=== PATIENT | male | born 1960 | race Caucasian/White ===

== ENCOUNTER → 2016-10-28 | Outpatient (CLI) | payer OTHER ==
[2016-06-23 11:10] VITALS: BP 123/81
[~2016-10-28] MED LIST: ALBU1.25 NEB; ALBU4TAB3 PO; ASPI81TA2 PO; ATOR10TA60 PO; CHOL10003 PO; CYAN10005 PO; DIAZEPAM10 MG PO; DOCU100C5 PO; DOXY100T PO; FENT1PAT21 TP; GADOBUTROL 7.5 MMOL/7.5 ML VIAL IV ONE; GARL1CAP3 PO; HYDR32TA PO; HYDR8TAB PO; MAGN400C PO; MORP100C15 PO; MORP15TA PO; MORP30TA PO; MULT1TAB52 PO; ONDA8TAB9 PO; OXYC-250 PO; OXYC10TA32 PO; OXYC30TA PO; POLY17PO5 PO; POTA10CA PO; POTA20TA12 PO; PROAIR HFA8.5 GM IH; PROC10TA57 PO; SILO8CAP PO; SPIR50TA2 PO; TAMS0.4C2 PO; TEST200V3 IM; TIZA2CAP PO; TRAZ150T55 PO; TRAZ5POW
--- NOTE | 2016-10-28 12:48 | RAD ---
PROCEDURE MRI brain without and with contrast. HISTORY Metastatic evaluation, history of lung cancer TECHNIQUE Multiplanar, multi sequential pre and post contrast MR imaging was performed of the brain. Contrast: 9 cc Gadavist COMPARISON April 02, 2016 FINDINGS There is no new abnormal intracranial enhancement. Ventricular size is stable. There is no new midline shift, intra-axial mass effect, extra-axial fluid collection. There is again moderate to severe T2 and FLAIR hyperintense signal abnormality of the supratentorial white matter bilaterally greatest of the parietal temporal lobes, overall fairly similar. There is preservation of the major arterial intracranial flow voids at the skull base. There is again some patchy fluid of the right mastoid air cells. There is patchy minimal ethmoid air cell mucosal thickening. There has been lens surgery bilaterally. There is preservation of marrow signal of the clivus. IMPRESSION 1. There is no new abnormal intracranial enhancement. There is similar T2 and FLAIR hyperintense signal abnormality of the supratentorial white matter, probably due to post therapeutic change in combination with chronic microvascular ischemic disease. Electronically signed by: Alistair Haddad MD (Oct 28, 2016 12:47:24)
--- NOTE | 2016-10-28 13:22 | RAD ---
Exam performed: Nuclear medicine whole-body bone scan. Indication: Lung cancer staging Date of Service: 10/28/16 Comparison:CT scan Chest, abdomen and pelvis from 10/15/16 Discussion: Following the intravenous administration of 25.0 mCi of MDP labeled with Technetium, delayed whole-body gamma camera images of the axial and appendicular skeleton were obtained. There is symmetric excretion of radiotracer via both kidneys with accumulation in the urinary bladder. There is normal distribution of the radionuclide without abnormal areas of increased or decreased accumulation. Impression: Normal whole-body nuclear bone scan.
== END | disposition home or self-care (01) ==
LOC: NM 07:52
PROVIDERS: ATTEND Internal Medicine Hematology & Oncology
DX: C34.10 Malignant neoplasm of upper lobe, unspecified bronchus or lung (principal); J45.909 Unspecified asthma, uncomplicated; J44.9 Chronic obstructive pulmonary disease, unspecified; I10 Essential (primary) hypertension; Z87.891 Personal history of nicotine dependence; Z85.118 Personal history of other malignant neoplasm of bronchus and lung
CPT/HCPCS: 70553; 78306; 96374; A9503; A9585

== ENCOUNTER → 2017-01-06 | Outpatient (CLI) | payer OTHER ==
[2016-06-23 11:10] VITALS: BP 123/81
[~2017-01-06] MED LIST changes: -GADOBUTROL 7.5 MMOL/7.5 ML VIAL IV ONE; +IOHEXOL 240 MG/ML 50ML VIAL. PO ONE; +IOHEXOL 300 MG/ML 75 ML VIAL IV ONE; +POLY17PO29 PO; -POLY17PO5 PO; -POTA10CA PO; +POTASSIUM CHLO10 MEQ PO
--- NOTE | 2017-01-06 10:46 | RAD ---
Indication: Restaging lung carcinoma. Axial imaging through the chest, abdomen and pelvis was performed after the administration of intravenous contrast. Correlation is made with prior CT from 10/15/2016. CT chest: No axillary lymphadenopathy is detected. Calcified lymph nodes in the left hilum are again noted. The right hilum is unremarkable. There continues to be soft tissue in the AP window, similar in appearance to the prior exam. Calcified lymph nodes subcarinal location are again noted. Previously noted nodular thickening along the left mediastinum at the level of the main pulmonary artery is again noted and appears very similar to prior exam. Overall thickness is similar measuring up to 10 mm. No new abnormality is detected. Parenchymal evaluation again shows diffuse emphysematous changes. Previously noted slightly irregular nodular density in the medial aspect of the superior segment of the left lower lobe appears less prominent on today's exam measuring approximately 7 mm x 5 mm compared with 8 mm x 5 mm on prior. There does appear to be some mild infiltrate or interstitial changes in the lingula medially which is new since prior. The lower lobes appear clear. Impression: Decrease in size of the nodular density in the superior segment left lower lobe when compared with prior exam from October 20, 2016. The mediastinal thickening and AP window soft tissue appears stable. There is some mild developing infiltrate in the lingula. CT abdomen and pelvis: Small low density in the right lobe of the liver near the dome appears stable and likely a cyst. No new liver mass is detected. The gallbladder is unremarkable. The pancreas and spleen are unremarkable. No adrenal mass is detected. Left kidney contains a cyst in the lower pole. Aorta is calcified but nonaneurysmal. There is a large amount of stool throughout the colon consistent with constipation. Small bowel is nondilated. The bladder and prostate are unremarkable. The bony structures appear nonacute. Impression: Stable CT of the abdomen and pelvis when compared with prior study from 10/15/2016. No definite evidence of abdominal or pelvic metastatic disease or lymphadenopathy is seen. There is moderate stool within the colon consistent with constipation. PQRS Compliance Statement: One or more of the following individualized dose reduction techniques were utilized for this examination: 1. Automated exposure control 2. Adjustment of the mA and/or kV according to patient size 3. Use of iterative reconstruction technique
== END | disposition home or self-care (01) ==
LOC: CT 08:28
PROVIDERS: ATTEND Internal Medicine Hematology & Oncology
DX: C34.10 Malignant neoplasm of upper lobe, unspecified bronchus or lung (principal)
CPT/HCPCS: 71260; 74177

== ENCOUNTER → 2017-03-09 | Outpatient (CLI) | payer OTHER ==
[2017-01-28 14:11] VITALS: BP 111/62
[~2017-03-09] MED LIST changes: +ASPI-630 PO; -ASPI81TA2 PO; +CONTRAST GIVEN MC PRN; +DOCU100C28 PO; -DOCU100C5 PO; -OXYC-250 PO; +OXYC-328 PO; -OXYC10TA32 PO; +OXYC10TA45 PO; +TRAZ150T49 PO; -TRAZ150T55 PO
--- NOTE | 2017-03-09 11:11 | RAD ---
CT chest, abdomen and pelvis with intravenous contrast 03/09/2017 at 10:11 AM. Indication: History of lung cancer. Comparison: CT chest, abdomen and pelvis 01/06/2017, 03/27/2016 CT chest Technique: Multiple axial CT images of the chest, abdomen and pelvis were acquired after the administration of intravenous and oral contrast. 75 cc Omni 300 was administered intravenously. Coronal and sagittal reformats are provided. Findings: There is a subcentimeter nodule in the left thyroid lobe. There is ill-defined soft tissue attenuation within the left prevascular space. Calcified mediastinal lymph nodes are identified in the subcarinal and left hilar regions. Heart size is within normal limits. There is no pericardial effusion. There is no pleural effusion. Thoracic aorta is normal in course and caliber. Pulmonary arteries appear normal. There is a 3 mm calcified granuloma in the right upper lung. There is pleural-parenchymal scarring at the lung apices, right greater than left. There is mild centrilobular emphysema in the upper lung zones. There is a 6 mm calcified granuloma in the left lower lobe. Stable appearance of a 7 x 5 mm noncalcified pulmonary nodule in the medial aspect of the superior segment left lower lobe. There is a 5 mm calcified granuloma in the left lower lobe. Findings are stable when compared to the prior examination from 03/27/2016. There is no pneumothorax. Interval resolution of lingular airspace disease. There is a 6 mm simple cyst in the right hepatic dome. No suspicious hepatic lesions are identified. Calcifications are noted within the spleen compatible with prior granulomatous disease. Gallbladder is normal in appearance. Adrenal glands appear normal. The abdominal aorta is normal in course and caliber with minimal atherosclerotic calcification. There are no pathologically enlarged abdominal or pelvic lymph nodes. There is no free intraperitoneal air. No free fluid is identified within the abdomen or pelvis. The kidneys enhance symmetrically. There is a 3 cm simple appearing cyst within the inferior pole the left kidney. There is no hydronephrosis. There are no dilated loops of small or large bowel. Moderate amount stool is noted throughout the colon. Urinary bladder is normal in appearance. Prostate is present. Seminal vesicles are normal. Mild degenerative changes of the lumbar spine are identified with disc space narrowing and anterior marginal osteophytosis at L1-L2. No suspicious osseous lesions are identified. Impression: 1. Stable appearance of a 7 x 5 mm noncalcified pulmonary nodule in the medial aspect of the super segment left lower lobe. This finding is stable dating back to 03/27/2016. This finding is stable from the prior examination from 05/17/2015. 2. No evidence for metastasis involving the chest, abdomen or pelvis.
== END | disposition home or self-care (01) ==
LOC: CT 08:28
PROVIDERS: ATTEND Internal Medicine Hematology & Oncology
DX: C34.10 Malignant neoplasm of upper lobe, unspecified bronchus or lung (principal)
CPT/HCPCS: 71260; 74177; Q9966; Q9967

== ENCOUNTER 2017-04-02 06:53 | Outpatient (CLI) | payer OTHER ==
[~2017-04-02] VITALS: Ht 180.3 cm; Wt 65.8 kg
[~2017-04-02 06:53] MED LIST changes: -CONTRAST GIVEN MC PRN; -IOHEXOL 240 MG/ML 50ML VIAL. PO ONE; -IOHEXOL 300 MG/ML 75 ML VIAL IV ONE
[2017-04-02 07:35] VITALS: BP 79/52
[2017-04-02 07:36] LABS: BASO % 0 % (0-3); EOS % 1 % (0-3); HEMATOCRIT 21.1 % (39.0-53.0); LYMPH # 1.2 x10^3/uL (1.0-4.8); LYMPH % 8 % (24-48); MEAN CORPUSCULAR HEMOGLOBIN 31 pg (25-35); MEAN CORPUSCULAR HGB CONC 32 g/dL (31-37); MEAN CORPUSCULAR VOLUME 98 fL (79-100); MONO % 9 % (0-9); NEUT % 82 % (31-73); PLATELET COUNT 56 x10^3/uL (140-400); RED BLOOD COUNT 2.16 x10^6/uL (4.30-5.70); RED CELL DISTRIBUTION WIDTH 23.8 % (11.5-14.5); WHITE BLOOD COUNT 14.9 x10^3/uL (4.0-11.0)
[2017-04-02 07:39] VITALS: BP 79/52
[2017-04-02 07:53] LABS: HEMOGLOBIN 6.8 g/dL (13.0-17.5)
[2017-04-02 08:00] VITALS: BP 85/58
[2017-04-02 08:00] LABS: INR 1.1 (0.8-1.1); PROTHROMBIN TIME PATIENT 13.6 SEC (11.7-14.0)
[2017-04-02 12:13] LABS: ANISOCYTOSIS MOD; PLT ESTIMATE DECREASED (ADEQUATE); POLYCHROMASIA SLIGHT; SCHISTOCYTES OCC
[2017-04-02 16:02] VITALS: BP 94/67
--- NOTE | 2017-04-09 10:23 | RAD ---
Procedure: Ultrasound and fluoroscopically guided placement of right internal jugular power port.. 04/09/2017 9:57 AM Clinical Indication: CHEMOTHERAPY Sedation: Conscious sedation was administered for 30 minutes. The patient was monitored by a qualified independent observer throughout the time of sedation. Please refer to the medical record for exact doses of medications utilized to achieve moderate sedation. Fluoroscopy time: 0.6 minutes Dose area product: 0.2 Gycm2 Consent: The procedure was explained in its entirety to the patient or the patients designated pest control service representative by a member of the treatment team, including a discussion of the risks, benefits and commonly accepted alternatives to the procedure, as well as the expected consequences of no therapy whatsoever. Discussion of the risks included, but was not limited to, those that are most frequent and those that are rare but possibly severe or life-threatening, as well as the possibility of unforeseen complications. Technique and Findings: All elements of maximal sterile barrier technique including the use of a cap, mask, sterile gown, sterile gloves, large sterile sheet, appropriate hand hygiene, and 2% chlorhexidine for cutaneous antisepsis (or acceptable alternative antiseptic per current guidelines) were followed for this procedure. Following informed consent, and a timeout procedure, the patient was prepped and draped in the usual sterile fashion. Ultrasound interrogation of the right neck revealed patency and compressibility of the right internal jugular vein. A 21-gauge micropuncture was then used to gain access to this vein under ultrasound guidance. A hard copy ultrasound image was recorded. The needle was exchanged over a wire for a sheath. A 1 inch incision was made several centimeters inferior to the sternotomy site. A catheter was tunneled from this site dermatotomy site in the neck. Catheter was advanced through peel-away sheath such that its tip was in the proximal right atrium with the patient supine. The catheter was trimmed to length and connected to the port reservoir. The port was found to flush and aspirate normally. The wound was closed in layers using 4-0 Vicryl suture. Sterile dressings were applied. Impression: Successful ultrasound and fluoroscopically guided placement of a right internal jugular PowerPort
== END 2017-04-02 10:15 | disposition home or self-care (01) ==
LOC: INTRAD 06:53
PROVIDERS: ATTEND Internal Medicine Hematology & Oncology
DX: C34.90 Malignant neoplasm of unspecified part of unspecified bronchus or lung (principal); J44.9 Chronic obstructive pulmonary disease, unspecified; E78.00 Pure hypercholesterolemia, unspecified; K21.9 Gastro-esophageal reflux disease without esophagitis; M19.90 Unspecified osteoarthritis, unspecified site; D64.9 Anemia, unspecified; Z86.73 Personal history of transient ischemic attack (TIA), and cerebral infarction without residual deficits; Z87.39 Personal history of other diseases of the musculoskeletal system and connective tissue; Z86.69 Personal history of other diseases of the nervous system and sense organs; Z72.0 Tobacco use; Z87.01 Personal history of pneumonia (recurrent)
CPT/HCPCS: 36415; 36561; 85007; 85027; 85610; 99152; 99153; C1887

== ENCOUNTER → 2017-04-09 | Outpatient (CLI) | payer OTHER ==
[~2017-04-09] VITALS: Ht 182.9 cm; Wt 65.8 kg
[~2017-04-09] MED LIST changes: +HEPARIN PF 500 UNIT/5 ML DISP.SYRIN. IV ONE; +LIDOCAINE 1%/EPI 1:100,000 20 ML VIAL. IJ ONE; +LIDOCAINE 1%/EPI 1:200,000 30 ML VIAL. ONE; +MIDAZOLAM HCL/PF 5 MG/5 ML VIAL. IV ONE; +MIDAZOLAM HCL/PF 5 MG/5 ML VIAL. ONE; +VANCOMYCIN 1GM IVPB FOR OMNI 0 ML ONE; +fentaNYL PF VIAL 250 MCG/5 ML VIAL IV ONE; +fentaNYL PF VIAL 250 MCG/5 ML VIAL ONE
[2017-04-09 07:47] VITALS: BP 100/59
[2017-04-09 07:50] LABS: BASO # 0.1 x10^3/uL (0.0-0.2); BASO % 1 % (0-3); EOS % 1 % (0-3); HEMATOCRIT 26.5 % (39.0-53.0); HEMOGLOBIN 8.7 g/dL (13.0-17.5); LYMPH # 0.8 x10^3/uL (1.0-4.8); LYMPH % 9 % (24-48); MEAN CORPUSCULAR HEMOGLOBIN 31 pg (25-35); MEAN CORPUSCULAR HGB CONC 33 g/dL (31-37); MEAN CORPUSCULAR VOLUME 95 fL (79-100); MONO % 10 % (0-9); NEUT % 79 % (31-73); PLATELET COUNT 374 x10^3/uL (140-400); RED CELL DISTRIBUTION WIDTH 21.1 % (11.5-14.5); WHITE BLOOD COUNT 8.8 x10^3/uL (4.0-11.0)
[2017-04-09 09:20] VITALS: BP 109/61
[2017-04-09 09:30] LABS: ANISOCYTOSIS MOD; PLT ESTIMATE ADEQUATE (ADEQUATE)
[2017-04-09 09:32] LABS: BURR CELLS OCC; HYPOCHROMIA SLIGHT
[2017-04-09 09:33] VITALS: BP 135/71
[2017-04-09 09:48] VITALS: BP 112/68
[2017-04-09 10:03] VITALS: BP 122/70
[2017-04-09 10:15] VITALS: BP 117/69
== END | disposition home or self-care (01) ==
LOC: INTRAD 06:52
PROVIDERS: ATTEND Internal Medicine Hematology & Oncology
DX: C34.90 Malignant neoplasm of unspecified part of unspecified bronchus or lung (principal); E78.00 Pure hypercholesterolemia, unspecified; J44.9 Chronic obstructive pulmonary disease, unspecified; K21.9 Gastro-esophageal reflux disease without esophagitis; M19.042 Primary osteoarthritis, left hand; M19.041 Primary osteoarthritis, right hand; F17.200 Nicotine dependence, unspecified, uncomplicated; Z72.0 Tobacco use; Z86.69 Personal history of other diseases of the nervous system and sense organs; Z86.73 Personal history of transient ischemic attack (TIA), and cerebral infarction without residual deficits; Z87.01 Personal history of pneumonia (recurrent); Z87.39 Personal history of other diseases of the musculoskeletal system and connective tissue
CPT/HCPCS: 36415; 36561; 76937; 77001; 85007; 85027; A4215; C1751; C1892; J0690; J1644; J2250; J3010; J3490; 99152; 99153

== ENCOUNTER → 2017-05-26 | Outpatient (CLI) | payer OTHER ==
[2017-05-19 10:03] VITALS: BP 99/58
[~2017-05-26] MED LIST changes: +CONTRAST GIVEN MC PRN; -HEPARIN PF 500 UNIT/5 ML DISP.SYRIN. IV ONE; +IOHEXOL 240 MG/ML 50ML VIAL. PO ONE; +IOHEXOL 300 MG/ML 75 ML VIAL IV ONE; -LIDOCAINE 1%/EPI 1:100,000 20 ML VIAL. IJ ONE; -LIDOCAINE 1%/EPI 1:200,000 30 ML VIAL. ONE; -MIDAZOLAM HCL/PF 5 MG/5 ML VIAL. IV ONE; -MIDAZOLAM HCL/PF 5 MG/5 ML VIAL. ONE; -VANCOMYCIN 1GM IVPB FOR OMNI 0 ML ONE; -fentaNYL PF VIAL 250 MCG/5 ML VIAL IV ONE; -fentaNYL PF VIAL 250 MCG/5 ML VIAL ONE
--- NOTE | 2017-05-26 13:30 | RAD ---
EXAM: Chest, abdomen and pelvis CT with intravenous contrast. HISTORY: Lung cancer restaging. TECHNIQUE: Computed tomographic images of the chest, abdomen and pelvis were obtained following the administration of 75 cc Omnipaque 300 intravenous contrast. Multiplanar reformatting was performed. COMPARISON: 03/09/2017 and 12/21/2014. FINDINGS: Chest: There is stable left superior paramediastinal bronchial wall thickening likely due to scarring. There is biapical pleural-parenchymal scarring. There is emphysema. There is a 9 mm nodular opacity within the superior medial superior segment of the left lower lobe, similar in size compared to the prior study when allowing for differences in slice position and volume averaging. There are a few calcified granulomas. There is no effusion or pneumothorax. The heart is normal in size. There is stable increased soft tissue density within the aortopulmonary window. There is stable right paratracheal, precarinal and subcarinal lymph nodes. There are multiple calcified left hilar and subcarinal lymph nodes. There is a right chest wall port catheter. There are degenerative changes within the spine. No suspicious osseous lesion is seen. Abdomen and pelvis: There is a stable 1 cm cyst within the right hepatic lobe. There is fatty infiltration of the liver along the falciform ligament. The gallbladder is unremarkable. There is dilatation of the common bile duct, without a clear lesion at the level of the ampulla. There are few pancreatic calcifications, possibly due to the sequela of chronic pancreatitis. There are granular mild within the spleen. The adrenal glands are unremarkable. There is a stable 3.0 cm simple left renal cyst. There is moderate colonic stool. There is mucosal thickening involving the descending colon, with slight surrounding pericolonic stranding. No pathologically enlarged mesenteric or retroperitoneal lymph node is seen. There are degenerative changes throughout the spine. No suspicious osseous lesion is seen. IMPRESSION: 1. Stable post operative or post radiation changes involving the left upper lobe. 2. 9 mm nodular opacity within the superior left lower lobe. The greater than two-year course of stability of this finding favors benignity. 3. Emphysema. 4. Stable small hepatic cyst and left renal cyst. 5. Stable punctate pancreatic parenchymal calcifications, suggesting the sequela of chronic pancreatitis. PQRS Compliance Statement: One or more of the following individualized dose reduction techniques were utilized for this examination: 1. Automated exposure control 2. Adjustment of the mA and/or kV according to patient size 3. Use of iterative reconstruction technique
== END | disposition home or self-care (01) ==
LOC: CT 09:28
PROVIDERS: ATTEND Internal Medicine Hematology & Oncology
DX: C34.10 Malignant neoplasm of upper lobe, unspecified bronchus or lung (principal); J43.9 Emphysema, unspecified; K76.89 Other specified diseases of liver; N28.1 Cyst of kidney, acquired
CPT/HCPCS: 71260; 74177; Q9966; Q9967

== ENCOUNTER → 2017-08-05 | Outpatient (CLI) | payer OTHER ==
[2017-05-19 10:03] VITALS: BP 99/58
[~2017-08-05] MED LIST changes: -CONTRAST GIVEN MC PRN; +HEPARIN PF 500 UNIT/5 ML DISP.SYRIN. IV ONE; +IOHEXOL 300 MG/ML 100ML VIAL. IV ONE; -IOHEXOL 300 MG/ML 75 ML VIAL IV ONE
--- NOTE | 2017-08-05 09:50 | RAD ---
CT of the chest, abdomen, and pelvis with contrast 08/05/2017 Indication: Follow-up, history of cancer. Comparison study: [CT of the chest, abdomen, and pelvis May 26, 2016.] Technique: Multidetector CT imaging of the chest was performed following the administration of intravenous contrast Findings: Right internal jugular port noted. Heart size is normal. No pericardial effusion is identified. Coronary calcification noted. Calcified left hilar adenopathy and subcarinal adenopathy noted. Emphysematous changes are noted throughout the lungs. Bilateral apical pleural scarring and bullous changes noted. The appearance is similar to prior study. Mild ovoid nodular opacity in the superior medial left lower lobe is unchanged from prior exam allowing for differences in technique. This measures approximately 9 mm in diameter. (Axial image 20). There is a calcified granuloma in the more inferior left lower lobe. No pneumothorax or pleural effusion is seen. No acute appearing infiltrate is identified. Evidence of prior granulomatous disease involving the spleen is noted. Small cyst in the right hepatic lobe superiorly is similar to comparison study. Intrahepatic and extrahepatic biliary dilatation is similar to prior exam. The adrenal glands are unremarkable in appearance. Left renal cysts are similar to comparison study. Kidneys are otherwise grossly unremarkable. There is increased stool noted throughout the proximal colon. There is relatively decompressed appearance of the distal colon beginning at approximately the splenic flexure. The pattern is similar to prior exam. Distal colon thickening is noted on comparison study is not apparent on today's exam. No evidence of acute obstruction is seen however. No significant free fluid or free air is seen in the abdomen or pelvis. No acute osseous changes are seen. Impression: 1. No evidence of acute cardiopulmonary process or acute change from prior study. Continued stability of a 9 mm noncalcified nodule in the superior medial left lower lobe is unchanged. Stability over time suggests benign etiology. 2. Increased stool throughout the proximal colon with relatively decompressed appearance of the distal colon. Mild thickening of the distal large bowel is not as apparent as it was on prior exam. Correlate with clinical history and consider follow-up colonoscopy to exclude stricture or less likely underlying mass. PQRS Compliance Statement: One or more of the following individualized dose reduction techniques were utilized for this examination: 1. Automated exposure control 2. Adjustment of the mA and/or kV according to patient size 3. Use of iterative reconstruction technique
== END | disposition home or self-care (01) ==
LOC: CT 07:00
PROVIDERS: ATTEND Internal Medicine Hematology & Oncology
DX: C34.90 Malignant neoplasm of unspecified part of unspecified bronchus or lung (principal); J43.9 Emphysema, unspecified; D71 Functional disorders of polymorphonuclear neutrophils
CPT/HCPCS: 71260; 74177; Q9966; Q9967

== ENCOUNTER 2017-09-22 12:08 | Outpatient (CLI) | payer OTHER ==
[2017-09-22] MEDS ORDERED: MIDAZOLAM HCL/PF 2 MG/2 ML VIAL. (12:24)
[2017-09-22] MEDS ORDERED: fentaNYL PF VIAL 100 MCG/2 ML VIAL (12:24)
[2017-09-22] MEDS ORDERED: PROPOFOL 20 ML IV (12:25)
[2017-09-22] MEDS: GADOBUTROL 7.5 MMOL/7.5 ML VIAL IV (13:17)
== END 2017-09-22 14:24 | disposition home or self-care (01) ==
LOC: SURG 12:08
DX: C34.90 Malignant neoplasm of unspecified part of unspecified bronchus or lung (principal); R41.82 Altered mental status, unspecified
CPT/HCPCS: 70553; J2250; J2704; J3010

== ENCOUNTER → 2017-11-16 | Outpatient (CLI) | payer OTHER ==
[~2017-11-16] MED LIST changes: -ALBU1.25 NEB; -ALBU4TAB3 PO; -ASPI-630 PO; -ATOR10TA60 PO; -CHOL10003 PO; +CONTRAST GIVEN MC; -CYAN10005 PO; -DIAZEPAM10 MG PO; -DOCU100C28 PO; -DOXY100T PO; -FENT1PAT21 TP; -GARL1CAP3 PO; -HEPARIN PF 500 UNIT/5 ML DISP.SYRIN. IV ONE; -HYDR32TA PO; -HYDR8TAB PO; -IOHEXOL 240 MG/ML 50ML VIAL. PO ONE; -IOHEXOL 300 MG/ML 100ML VIAL. IV ONE; -MAGN400C PO; -MORP100C15 PO; -MORP15TA PO; -MORP30TA PO; -MULT1TAB52 PO; -ONDA8TAB9 PO; -OXYC-328 PO; -OXYC10TA45 PO; -OXYC30TA PO; -POLY17PO29 PO; -POTA20TA12 PO; -POTASSIUM CHLO10 MEQ PO; -PROAIR HFA8.5 GM IH; -PROC10TA57 PO; -SILO8CAP PO; -SPIR50TA2 PO; -TAMS0.4C2 PO; -TEST200V3 IM; -TIZA2CAP PO; -TRAZ150T49 PO; -TRAZ5POW
[2017-11-16] MEDS: IOHEXOL 240 MG/ML 50ML VIAL. PO (08:32)
[2017-11-16] MEDS: IOHEXOL 300 MG/ML 100ML VIAL. IV (08:32)
[2017-11-16] MEDS: HEPARIN PF 500 UNIT/5 ML DISP.SYRIN. IV (08:35)
== END | disposition home or self-care (01) ==
LOC: CT 07:23
DX: C34.10 Malignant neoplasm of upper lobe, unspecified bronchus or lung (principal); J43.2 Centrilobular emphysema; J84.10 Pulmonary fibrosis, unspecified; I25.10 Atherosclerotic heart disease of native coronary artery without angina pectoris; R91.1 Solitary pulmonary nodule
CPT/HCPCS: 71260; 74177; Q9966; Q9967

== ENCOUNTER → 2018-02-09 | Outpatient (CLI) | payer OTHER | END | disposition home or self-care (01) | LOC: PNCL 11:26 | DX: M51.16 Intervertebral disc disorders with radiculopathy, lumbar region (principal) | CPT/HCPCS: G0463 ==

== ENCOUNTER → 2018-02-15 | Outpatient (CLI) | payer OTHER ==
[2018-02-15] MEDS: IOHEXOL 240 MG/ML 50ML VIAL. PO (09:20)
[2018-02-15] MEDS: IOHEXOL 300 MG/ML 100ML VIAL. IV (09:20)
== END | disposition home or self-care (01) ==
LOC: CT 08:05
DX: C34.12 Malignant neoplasm of upper lobe, left bronchus or lung (principal); I10 Essential (primary) hypertension; E78.5 Hyperlipidemia, unspecified; N28.1 Cyst of kidney, acquired; R91.1 Solitary pulmonary nodule
CPT/HCPCS: 71260; 74177; Q9966; Q9967

== ENCOUNTER → 2018-06-15 | Outpatient (CLI) | payer OTHER ==
[2018-02-15 11:30] VITALS: BP 105/55
[~2018-06-15] MED LIST changes: +ALBU1.25 NEB; +ALBU4TAB3 PO; +ASPI-630 PO; +ATOR10TA60 PO; +CHOL10003 PO; -CONTRAST GIVEN MC; +CONTRAST GIVEN. MC PRN; +CYAN10005 PO; +DIAZEPAM10 MG PO; +DOCU100C28 PO; +DOXY100T PO; +FENT1PAT21 TP; +GABA300C8 PO; +GARL1CAP3 PO; +HEPARIN PF 500 UNIT/5 ML DISP.SYRIN. IV ONE; +HYDR32TA PO; +HYDR8TAB PO; +IOHEXOL 240 MG/ML 50ML VIAL. PO ONE; +IOHEXOL 300 MG/ML 100ML VIAL. IV ONE; +MAGN400C PO; +MORP100C15 PO; +MORP15TA PO; +MORP30TA PO; +MULT1TAB52 PO; +ONDA8TAB9 PO; +OXYC-328 PO; +OXYC10TA45 PO; +OXYC30TA PO; +POLY17PO29 PO; +POTA10TA12 PO; +POTA20TA12 PO; +PROAIR HFA8.5 GM IH; +PROC10TA57 PO; +SILO8CAP PO; +SPIR50TA4 PO; +TAMS0.4C2 PO; +TEST200V3 IM; +TIZA2CAP PO; +TRAZ150T49 PO; +TRAZ5POW
--- NOTE | 2018-06-15 13:35 | RAD ---
CT CHEST ABD PELVIS W/CONTRAST Indication: Lung cancer Technique: Postcontrast CT imaging was performed of the chest, abdomen, pelvis, multiplanar reconstruction images submitted. Oral contrast was also given. One or more of the following individualized dose reduction techniques were utilized for this examination: 1. Automated exposure control 2. Adjustment of the mA and/or kV according to patient size 3. Use of iterative reconstruction technique. Comparison: February 15, 2018 CHEST: Findings: There is similar appearance of left superior perihilar soft tissue density extending to the AP window along the left mediastinal border and also some extent of lateral to the left aspect of the trachea. There is also associated more central bronchial wall thickening on the left overall unchanged. There is other unchanged reticular density of the left upper lobe, likely component of fibrotic change. Somewhat nodular appearing superior left lower lobe density axial image 19 about 0.8 cm is similar. There is linear appearing right upper lobe density closer to the apex also likely related to fibrotic change. There is no new significant pulmonary nodularity. There is likely tiny left upper lobe nodule axial image 13 0.3 cm, unchanged. There is also unchanged tiny left upper lobe nodule 0.2 cm image 25. There is no pleural or pericardial effusion, pneumothorax. There are calcified left hilar as well as mediastinal nodes as seen previously. Precarinal node 0.7 cm short axis dimension is similar. No new significantly enlarged nodes are identified of the chest. There is again moderate to severe centrilobular emphysema with upper zone predominance. There is right internal jugular port catheter. Thoracic aortic caliber is within normal limits. There is no abnormality of the visualized thyroid gland. IMPRESSION: 1. Thoracic findings are stable compared with January 2018 exam, similar left perihilar soft tissue density extending to AP window along the left frontal border. Tiny pulmonary nodules are unchanged, no new pulmonary nodularity or lymphadenopathy. There is again centrilobular emphysema with upper zone predominance. Abdomen and pelvis: FINDINGS: Hypodense lesion closer the dome of liver about 0.7 cm is similar, a couple of other tiny hypodense foci of the liver also stable and too small to characterize. Both kidneys enhance, no hydronephrosis. There is again left renal cyst about 3.1 cm, also small focus superiorly about 0.7 cm. There is no adrenal nodularity. There are splenic granulomas. There is no new abnormality of the pancreas. There is no significant adrenal nodularity. Gallbladder is present without obvious intraluminal abnormality by CT, similar degree of mild central intrahepatic biliary ductal dilatation. There is fairly prominent retained stool in the colon greater of the right and transverse colon. Small bowel is not dilated. There is no free air or free fluid. There is scattered atherosclerotic calcification normal caliber abdominal aorta. There is body wall edema. There is degenerative disc disease greatest L1-2. IMPRESSION: 1. There are unchanged small hypodense foci of the liver, largest near the dome, no new hepatic lesion. There is no new evidence of metastatic disease to the abdomen or pelvis. 2. There is prominent retained stool greater of the right and transverse colon. 3. There are again left renal cysts. 4. There is similar mild central intrahepatic biliary ductal dilatation. Electronically signed by: Stephen Haddad MD (06/15/2018 1:32 PM) [id number]
== END | disposition home or self-care (01) ==
LOC: CT 08:52
PROVIDERS: ATTEND Internal Medicine Hematology & Oncology
DX: C34.12 Malignant neoplasm of upper lobe, left bronchus or lung (principal); J43.2 Centrilobular emphysema; N28.1 Cyst of kidney, acquired; M51.36 Other intervertebral disc degeneration, lumbar region; I70.0 Atherosclerosis of aorta
CPT/HCPCS: 71260; 74177; Q9966; Q9967

== ENCOUNTER → 2018-07-21 | Outpatient (CLI) | payer OTHER ==
[2018-02-15 11:30] VITALS: BP 105/55
[~2018-07-21] MED LIST changes: -CONTRAST GIVEN. MC PRN; -HEPARIN PF 500 UNIT/5 ML DISP.SYRIN. IV ONE; -IOHEXOL 240 MG/ML 50ML VIAL. PO ONE; -IOHEXOL 300 MG/ML 100ML VIAL. IV ONE; -SILO8CAP PO; +SILO8CAP2 PO
--- NOTE | 2018-07-21 16:28 | RAD ---
CHEST PA LATERAL Clinical indications: cough,short of air COMPARISON: June 20, 2016. Findings: Old granulomatous disease is evident. Hyperinflation is seen consistent with COPD. No acute lung infiltrate or pleural effusion or pulmonary edema or lung mass or pneumothorax is seen. A right IJ Port-A-Cath tip is seen within the lower SVC near the junction of the right atrium. The heart size, pulmonary vasculature, mediastinum and both jovanni are otherwise unremarkable. The osseous structures appear intact. Impression: No acute radiographic abnormality is seen. Electronically signed by: Saurav Lopez MD (07/21/2018 4:25 PM) [place] [id number]
== END | disposition home or self-care (01) ==
LOC: RAD 11:03
PROVIDERS: ATTEND Nurse Practitioner Adult Health
DX: D71 Functional disorders of polymorphonuclear neutrophils (principal); F17.210 Nicotine dependence, cigarettes, uncomplicated
CPT/HCPCS: 71046

== ENCOUNTER 2018-08-23 22:38 | Inpatient (IN) | payer OTHER ==
[~2018-08-23] VITALS: Ht 180.3 cm; Wt 61.3 kg
[~2018-08-23 22:38] MED LIST changes: +ALBU2.5V8 IH; +GABA300C18 PO; -GABA300C8 PO; -OXYC-328 PO; -OXYC10TA45 PO; +OXYC10TA46 PO; +OXYC1TAB22 PO; -OXYC30TA PO; +OXYC30TA3 PO; -PROAIR HFA8.5 GM IH
--- NOTE | 2018-08-23 22:56 | PHYS DOC ---
Past Medical History Past Medical History: Cancer, COPD Additional Past Medical Histor: lung cancer, CHRONIC BACK PAIN Past Surgical History: Other Additional Past Surgical Histo: multiple shoulder, neck surgeries Alcohol Use: None Drug Use: None Adult General Chief Complaint Chief Complaint: CHEST PAIN HPI HPI Patient is a 58 year old male who presents with right-sided chest pain, difficulty breathing, fever. Patient has lung cancer, last chemotherapy approximately a week ago. Fever is subjective, has not taken his temperature at home. Nothing seems to make things better. Deep breaths make things worse. No new lower extremity swelling.[] Review of Systems Review of Systems Constitutional: Denies chills [] Eyes: Denies change in visual acuity, redness, or eye pain [] HENT: Denies nasal congestion or sore throat [] Respiratory: Denies cough or shortness of breath [] Cardiovascular: No additional information not addressed in HPI [] GI: Denies abdominal pain, nausea, vomiting, bloody stools or diarrhea [] : Denies dysuria or hematuria [] Musculoskeletal: Denies back pain or joint pain [] Integument: Denies rash or skin lesions [] Neurologic: Denies headache, focal weakness or sensory changes [] Endocrine: Denies polyuria or polydipsia [] All other systems were reviewed and found to be within normal limits, except as documented in this note. Current Medications Current Medications Current Medications Medications (Trade) Dose Ordered Sig/Narcisa Start Time Stop Time Status Last Admin Dose Admin Albuterol Sulfate (Ventolin Neb Soln) 2.5 mg 1X ONCE 08/23/18 23:30 08/23/18 23:31 DC 08/23/18 23:11 2.5 MG Albuterol/ Ipratropium (Duoneb) 3 ml 1X ONCE 08/24/18 00:45 08/24/18 00:46 DC 08/24/18 00:30 3 ML Info (CONTRAST GIVEN -- Rx MONITORING) 1 each PRN DAILY PRN 08/23/18 23:45 08/25/18 23:44 Iohexol (Omnipaque 300 Mg/ml) 100 ml 1X ONCE 08/24/18 00:00 08/24/18 00:01 DC 08/23/18 23:59 75 ML Ipratropium [place] (Atrovent) 0.5 mg 1X ONCE 08/23/18 23:30 08/23/18 23:31 DC 08/23/18 23:12 0.5 MG Sodium Chloride 500 ml @ 500 mls/hr 1X ONCE 08/23/18 23:30 08/24/18 00:29 DC 08/23/18 23:26 500 MLS/HR Allergies Allergies Allergies Coded Allergies Type Severity Reaction Last Updated Verified No Known Drug Allergies 02/15/18 No Physical Exam Physical Exam Constitutional: Well developed, cachectic, no acute distress, non-toxic appearance. [] HENT: Normocephalic, atraumatic, bilateral external ears normal, oropharynx moist, no oral exudates, nose normal. [] Eyes: PERRLA, EOMI, conjunctiva normal, no discharge. [] Neck: Normal range of motion, no tenderness, supple, no stridor. [] Cardiovascular:Heart rate is tachycardic with a regular rhythm, no murmur [] Lungs & Thorax: Bilateral breath sounds clear to auscultation [] Abdomen: Bowel sounds normal, soft, no tenderness, no masses, no pulsatile masses. [] Skin: Warm, dry, no erythema, no rash. [] Back: No tenderness, no CVA tenderness. [] Extremities: No tenderness, no cyanosis, no clubbing, ROM intact, no edema. [] Neurologic: Alert and oriented X 3, normal motor function, normal sensory function, no focal deficits noted. [] Psychologic: Affect normal, judgement normal, mood normal. [] Current Patient Data Vital Signs Vital Signs Date Time Temp Pulse Resp B/P (MAP) Pulse Ox O2 Delivery O2 Flow Rate FiO2 08/24/18 00:33 100 Nasal Cannula 3.0 08/23/18 22:38 98.8 123 30 172/67 (102) 98.8 Lab Values Laboratory Tests Test 08/23/18 22:50 08/23/18 23:35 White Blood Count 5.5 x10^3/uL (4.0-11.0) Red Blood Count 4.40 x10^6/uL (4.30-5.70) Hemoglobin 12.9 g/dL (13.0-17.5) L Hematocrit 39.6 % (39.0-53.0) Mean Corpuscular Volume 90 fL (79-100) Mean Corpuscular Hemoglobin 29 pg (25-35) Mean Corpuscular Hemoglobin Concent 33 g/dL (31-37) Red Cell Distribution Width 18.0 % (11.5-14.5) H Platelet Count 13 x10^3/uL (140-400) *L Neutrophils (%) (Auto) 90 % (31-73) H Lymphocytes (%) (Auto) 6 % (24-48) L Monocytes (%) (Auto) 3 % (0-9) Eosinophils (%) (Auto) 1 % (0-3) Basophils (%) (Auto) 1 % (0-3) Neutrophils # (Auto) 4.9 x10^3uL (1.8-7.7) Lymphocytes # (Auto) 0.3 x10^3/uL (1.0-4.8) L Monocytes # (Auto) 0.2 x10^3/uL (0.0-1.1) Eosinophils # (Auto) 0.1 x10^3/uL (0.0-0.7) Basophils # (Auto) 0.0 x10^3/uL (0.0-0.2) Segmented Neutrophils % 80 % (35-66) H Band Neutrophils % 10 % (0-9) H Lymphocytes % 5 % (24-48) L Monocytes % 4 % (0-10) Metamyelocytes % 1 % (0-0) H Toxic Granulation Marked Dohle Bodies Few Platelet Estimate Decreased (ADEQUATE) Polychromasia Slight Anisocytosis Slight Sodium Level 140 mmol/L (136-145) Potassium Level 4.7 mmol/L (3.5-5.1) Chloride Level 97 mmol/L (98-107) L Carbon Dioxide Level 37 mmol/L (21-32) H Anion Gap 6 (6-14) Blood Urea Nitrogen 21 mg/dL (8-26) Creatinine 1.1 mg/dL (0.7-1.3) Estimated GFR (Cockcroft-Gault) 69.0 BUN/Creatinine Ratio 19 (6-20) Glucose Level 127 mg/dL (70-99) H Lactic Acid Level 1.4 mmol/L (0.4-2.0) Calcium Level 9.6 mg/dL (8.5-10.1) Total Bilirubin 0.7 mg/dL (0.2-1.0) Aspartate Amino Transferase (AST) 13 U/L (15-37) L Alanine Aminotransferase (ALT) 20 U/L (16-63) Alkaline Phosphatase 76 U/L (46-116) Troponin I Quantitative < 0.017 ng/mL (0.000-0.055) DJ-Kdi-T-Type Natriuretic Peptide 379 pg/mL (0-124) H Total Protein 8.1 g/dL (6.4-8.2) Albumin 3.4 g/dL (3.4-5.0) Albumin/Globulin Ratio 0.7 (1.0-1.7) L Influenza Type A Antigen Negative (NEGATIVE) Influenza Type B Antigen Negative (NEGATIVE) Laboratory Tests 08/23/18 22:50 Laboratory Tests 08/23/18 22:50 EKG EKG EKG shows a sinus tachycardia at 114 bpm, normal axis, QTC of [address] elevations.[] Radiology/Procedures Radiology/Procedures CT scan of the chest: FINDINGS: Emphysema is again seen in the lungs. There are some opacities adjacent to the left hilum that may relate to prior radiation. These appear similar. There are now fairly widely distributed areas of opacity in the lungs, many of which have a nodular or branching pattern. These could indicate small airway opacification. A more localized area of opacification is seen posteriorly and medially in the right lower lobe. This has irregular margins and extends over about 1.8 cm. The central airways show no obstruction. There is some soft tissue density in the mediastinum at the AP window with evidence of narrowing of the left upper lobe pulmonary artery. This is likely similar to the prior study. No new adenopathy is seen. Evaluation of the pulmonary arterial tree shows no abnormal filling defect extending to the subsegmental branch level. Images through the upper abdomen show no new abnormality. A mass or nodule in the epicardial fat on the left appears unchanged. IMPRESSION: No evidence of pulmonary embolism. There are now areas of opacity scattered throughout both lungs. These are nonspecific. An infectious or inflammatory process involving small airways is favored. Lymphangitic tumor spread would be a secondary consideration.[] Course & Med Decision Making Course & Med Decision Making Pertinent Labs and Imaging studies reviewed. (See chart for details) [] Dragon Disclaimer Dragon Disclaimer This electronic medical record was generated, in whole or in part, using a voice recognition dictation system. Departure Departure Impression: Primary Impression: Pneumonia Additional Impressions: Chest pain Shortness of breath Disposition: ADMITTED INPATIENT Admitting Physician: Lucia Eisenberg Condition: GUARDED Referrals: Caitlyn ELLIOTT MD (PCP) Problem Qualifiers Primary Impression: Pneumonia Pneumonia type: due to unspecified organism Laterality: unspecified laterality Lung location: unspecified part of lung Qualified Codes: J18.9 - Pneumonia, unspecified organism Additional Impressions: Chest pain Chest pain type: unspecified Qualified Codes: R07.9 - Chest pain, unspecified AMANDA HERNANDEZ DO Aug 23, 2018 22:56
[2018-08-23 23:06] LABS: BASO % 1 % (0-3); EOS # 0.1 x10^3/uL (0.0-0.7); EOS % 1 % (0-3); HEMATOCRIT 39.6 % (39.0-53.0); HEMOGLOBIN 12.9 g/dL (13.0-17.5); LYMPH # 0.3 x10^3/uL (1.0-4.8); LYMPH % 6 % (24-48); MEAN CORPUSCULAR HEMOGLOBIN 29 pg (25-35); MEAN CORPUSCULAR HGB CONC 33 g/dL (31-37); MEAN CORPUSCULAR VOLUME 90 fL (79-100); MONO # 0.2 x10^3/uL (0.0-1.1); MONO % 3 % (0-9); NEUT # 4.9 x10^3uL (1.8-7.7); NEUT % 90 % (31-73); WHITE BLOOD COUNT 5.5 x10^3/uL (4.0-11.0)
[2018-08-23 23:09] LABS: PLATELET COUNT 13 x10^3/uL (140-400)
[2018-08-23 23:11] LABS: CALCIUM 9.6 mg/dL (8.5-10.1); CREATININE 1.1 mg/dL (0.7-1.3); POTASSIUM 4.7 mmol/L (3.5-5.1)
[2018-08-23 23:17] LABS: ALBUMIN 3.4 g/dL (3.4-5.0); ALBUMIN/GLOBULIN RATIO 0.7 (1.0-1.7); TOTAL BILIRUBIN 0.7 mg/dL (0.2-1.0); TOTAL PROTEIN 8.1 g/dL (6.4-8.2)
[2018-08-23 23:29] LABS: % BANDS 10 % (0-9); % LYMPHS 5 % (24-48); % METAS 1 % (0-0); % MONOS 4 % (0-10); % SEGS 80 % (35-66); ANISOCYTOSIS SLIGHT; PLT ESTIMATE DECREASED (ADEQUATE); POLYCHROMASIA SLIGHT; TOXIC GRANULATION MARKED
[2018-08-23] MEDS ORDERED: IV NORMAL SALINE 500ML BAG 500 ML IV ONE (23:30)
[2018-08-23] MEDS ORDERED: ALBUTEROL SULFATE 2.5 MG/3 ML NEBU. NEB ONE (23:30)
[2018-08-23] MEDS ORDERED: IPRATROPIUM BROMIDE 0.5 MG/2.5 ML NEBU. NEB ONE (23:30)
[2018-08-23] MEDS ORDERED: CONTRAST GIVEN. MC PRN (23:45)
[2018-08-23 23:52] LABS: BASE EXCESS COOX 7 mmol/L (-3-3); HCO3 COOX 33 mmol/L (21-28); METHEMOGLOBIN 0.4 % (0.0-1.9); OXYHEMOGLOBIN 95.4 %; PCO2 COOX 56 mmHg (35-46); PO2 COOX 99 mmHg (75-108); SAT O2 COOX 97 % (92-99)
[2018-08-23 23:58] LABS: INFLUENZA A PATIENT NEGATIVE (NEGATIVE); INFLUENZA B PATIENT NEGATIVE (NEGATIVE)
[2018-08-24] MEDS ORDERED: IOHEXOL 300 MG/ML 100ML VIAL. IV ONE
[2018-08-24] MEDS ORDERED: IPRATRPIUM/ALBUTEROL 0.5/2.5MG 3 ML NEBU. NEB ONE (00:45)
--- NOTE | 2018-08-24 00:52 | RAD ---
CTA chest with and without contrast 08/24/2018. Reason for exam: Chest pain. History of lung cancer. Helical CT images were made through the chest using an infusion of 75 mL Omnipaque 300. MIP reconstructions were performed. Exposure: One or more of the following individualized dose reduction techniques were utilized for this examination: 1. Automated exposure control 2. Adjustment of the mA and/or kV according to patient size 3. Use of iterative reconstruction technique. Comparison is made with a prior CT of 06/15/2018. FINDINGS: Emphysema is again seen in the lungs. There are some opacities adjacent to the left hilum that may relate to prior radiation. These appear similar. There are now fairly widely distributed areas of opacity in the lungs, many of which have a nodular or branching pattern. These could indicate small airway opacification. A more localized area of opacification is seen posteriorly and medially in the right lower lobe. This has irregular margins and extends over about 1.8 cm. The central airways show no obstruction. There is some soft tissue density in the mediastinum at the AP window with evidence of narrowing of the left upper lobe pulmonary artery. This is likely similar to the prior study. No new adenopathy is seen. Evaluation of the pulmonary arterial tree shows no abnormal filling defect extending to the subsegmental branch level. Images through the upper abdomen show no new abnormality. A mass or nodule in the epicardial fat on the left appears unchanged. IMPRESSION: No evidence of pulmonary embolism. There are now areas of opacity scattered throughout both lungs. These are nonspecific. An infectious or inflammatory process involving small airways is favored. Lymphangitic tumor spread would be a secondary consideration. Electronically signed by: Jules Ordoñez Jr., MD (08/24/2018 12:47 AM) [facility]
[2018-08-24] MEDS ORDERED: ONDANSETRON PF 4 MG/2 ML VIAL. IV PRN ×2 (01:15→09:00)
[2018-08-24] MEDS ORDERED: ACETAMINOPHEN 325 MG TABLET. PO PRN (01:15)
[2018-08-24] MEDS ORDERED: AZITHRMYCN 500MG IVPB FOR OMNI 250 ML IV ONE (01:30)
[2018-08-24] MEDS ORDERED: cefTRIAXone IV Push 1 GM VIAL. IVP ONE (01:30)
[2018-08-24 02:49] VITALS: BP 130/70
[2018-08-24] MEDS ORDERED: ALBUTEROL SULFATE 2.5 MG/3 ML NEBU. NEB PRN ×3 (03:30→09:00)
[2018-08-24] MEDS: oxyCODONE IR 5 MG TABLET PO PRN ×2 (03:39→06:26)
--- NOTE | 2018-08-24 06:21 | EKG ---
[facility] [address] [place] [address] Test Date: 2018-08-23 Test Time: 22:45:26 Pat Name: SHADE DYER Department: Room: Gender: M Electrocardiograph Technician: : 1960 Requested By: AMANDA HERNANDEZ Order Number: [id number] Reading MD: Measurements Intervals [place] Rate: 113 P: 81 CT: 120 QRS: 86 QRSD: 80 T: 75 QT: 284 QTc: 394 Interpretive Statements SINUS TACHYCARDIA LEFT ATRIAL ABNORMALITY QRS(T) CONTOUR ABNORMALITY CANNOT RULE OUT ANTEROSEPTAL MYOCARDIAL DAMAGE ABNORMAL ECG No previous ECG available for comparison
[2018-08-24] MEDS: IPRATRPIUM/ALBUTEROL 0.5/2.5MG 3 ML NEBU. NEB SCH ×4 (07:33→21:29)
[2018-08-24 07:52] VITALS: BP 110/68
[2018-08-24] MEDS: guaiFENesin DM 200MG/20MG 10 ML SYRUP PO PRN ×2 (08:21→21:57)
[2018-08-24] MEDS: POTASSIUM CHLORIDE 20 MEQ TABLET.ER. PO SCH ×2 (09:00→10:19)
[2018-08-24] MEDS ORDERED: PROCHLORPERAZINE 5 MG TABLET. PO PRN (09:15)
--- NOTE | 2018-08-24 09:53 | HP ---
ADMIT DATE: 08/24/2018 CHIEF COMPLAINT: Shortness of breath. HISTORY OF PRESENT ILLNESS AND HOSPITAL COURSE: The patient is a 58-year-old male with known history of lung cancer and started having increasing shortness of breath and right-sided chest pain with fever at home; therefore, he came to the hospital for evaluation. He was found to have likely postobstructive pneumonia by CTA, no evidence of pulmonary embolus. The patient's last chemotherapy was approximately 1 week ago due to high risk of sepsis and immunocompromised status. He was admitted for IV antibiotics, pulmonary toilet with pulmonary consultation and oncology consultation. The patient had significant thrombocytopenia as well, which will be monitored during hospital stay. PAST MEDICAL HISTORY: Significant for COPD, lung cancer, hypogonadism, sacroiliitis, chronic back pain, generalized anxiety disorder, prediabetes, severe protein malnutrition, lung cancer metastatic to bone. FAMILY HISTORY: Noncontributory. SOCIAL HISTORY: The patient smokes less than a pack per day at this time, does not drink alcohol. He lives with his . PAST SURGICAL HISTORY: Significant for cervical fusion and lumbar laminectomy. REVIEW OF SYSTEMS: The patient denies any nausea, vomiting, but has had cough, shortness of breath and fever. PHYSICAL EXAMINATION: GENERAL: This is a cachectic-appearing male who is alert and oriented x 3. HEENT: Reveals poor dentition. NECK: Supple. CARDIAC: Regular rate and rhythm. LUNGS: Coarse without significant wheezing on my exam. ABDOMEN: Soft and nontender. EXTREMITIES: 1+ pulses bilaterally without significant edema. NEUROLOGIC: Showed no unilateral findings. ASSESSMENT: 1. Acute on chronic respiratory failure. 2. Postobstructive pneumonia. 3. Metastatic lung cancer with mets to bone. 4. Thrombocytopenia. 5. Mild hyperglycemia. 6. Chronic obstructive pulmonary disease. PLAN: To proceed with pulmonary toilet, IV antibiotics. Consult Pulmonary and Oncology and monitor the patient's symptoms. JULIA NAVARRETE MD DR: HILARY/sergio JOB#: [id number] / [id number]
[2018-08-24] MEDS ORDERED: ENOXAPARIN 40 MG/0.4 ML SYRINGE. SQ SCH (10:00)
[2018-08-24] MEDS ORDERED: fentaNYL 100MCG/HR PATCH 1 PATCH PATCH TD SCH (10:00)
[2018-08-24] MEDS: MULTIVITAMIN with MINERAL TABLET. PO SCH (10:19)
[2018-08-24] MEDS: CYANOCOBALAMIN (VITAMIN B-12) 1,000 MCG TABLET. PO SCH (10:19)
[2018-08-24 11:15] VITALS: BP 118/74
--- NOTE | 2018-08-24 11:15 | PDOC ---
PULMONARY PROGRESS NOTES Vitals Vital Signs Date Time Temp Pulse Resp B/P (MAP) Pulse Ox O2 Delivery O2 Flow Rate FiO2 08/24/18 10:34 20 98 Nasal Cannula 3.0 08/24/18 07:52 98.0 107 110/68 (82) 98.0 Labs Laboratory Tests Test 08/23/18 00:00 08/23/18 22:50 08/23/18 23:35 O2 Saturation 97 % (92-99) Arterial Blood pH 7.38 (7.35-7.45) Arterial Blood pCO2 at Patient Temp 56 mmHg (35-46) Arterial Blood pO2 at Patient Temp 99 mmHg (75-108) Arterial Blood HCO3 33 mmol/L (21-28) Arterial Blood Base Excess 7 mmol/L (-3-3) Oxyhemoglobin 95.4 % Methemoglobin 0.4 % (0.0-1.9) Carbon Monoxide, Quantitative 1.0 % (0.0-1.9) FiO2 32 White Blood Count 5.5 x10^3/uL (4.0-11.0) Red Blood Count 4.40 x10^6/uL (4.30-5.70) Hemoglobin 12.9 g/dL (13.0-17.5) Hematocrit 39.6 % (39.0-53.0) Mean Corpuscular Volume 90 fL (79-100) Mean Corpuscular Hemoglobin 29 pg (25-35) Mean Corpuscular Hemoglobin Concent 33 g/dL (31-37) Red Cell Distribution Width 18.0 % (11.5-14.5) Platelet Count 13 x10^3/uL (140-400) Neutrophils (%) (Auto) 90 % (31-73) Lymphocytes (%) (Auto) 6 % (24-48) Monocytes (%) (Auto) 3 % (0-9) Eosinophils (%) (Auto) 1 % (0-3) Basophils (%) (Auto) 1 % (0-3) Neutrophils # (Auto) 4.9 x10^3uL (1.8-7.7) Lymphocytes # (Auto) 0.3 x10^3/uL (1.0-4.8) Monocytes # (Auto) 0.2 x10^3/uL (0.0-1.1) Eosinophils # (Auto) 0.1 x10^3/uL (0.0-0.7) Basophils # (Auto) 0.0 x10^3/uL (0.0-0.2) Segmented Neutrophils % 80 % (35-66) Band Neutrophils % 10 % (0-9) Lymphocytes % 5 % (24-48) Monocytes % 4 % (0-10) Metamyelocytes % 1 % (0-0) Toxic Granulation Marked Dohle Bodies Few Platelet Estimate Decreased (ADEQUATE) Polychromasia Slight Anisocytosis Slight Sodium Level 140 mmol/L (136-145) Potassium Level 4.7 mmol/L (3.5-5.1) Chloride Level 97 mmol/L (98-107) Carbon Dioxide Level 37 mmol/L (21-32) Anion Gap 6 (6-14) Blood Urea Nitrogen 21 mg/dL (8-26) Creatinine 1.1 mg/dL (0.7-1.3) Estimated GFR (Cockcroft-Gault) 69.0 BUN/Creatinine Ratio 19 (6-20) Glucose Level 127 mg/dL (70-99) Lactic Acid Level 1.4 mmol/L (0.4-2.0) Calcium Level 9.6 mg/dL (8.5-10.1) Total Bilirubin 0.7 mg/dL (0.2-1.0) Aspartate Amino Transf (AST/SGOT) 13 U/L (15-37) Alanine Aminotransferase (ALT/SGPT) 20 U/L (16-63) Alkaline Phosphatase 76 U/L (46-116) Troponin I Quantitative < 0.017 ng/mL (0.000-0.055) FC-Xbo-W-Type Natriuretic Peptide 379 pg/mL (0-124) Total Protein 8.1 g/dL (6.4-8.2) Albumin 3.4 g/dL (3.4-5.0) Albumin/Globulin Ratio 0.7 (1.0-1.7) Influenza Type A Antigen Negative (NEGATIVE) Influenza Type B Antigen Negative (NEGATIVE) Laboratory Tests Test 08/23/18 22:50 08/23/18 23:35 White Blood Count 5.5 x10^3/uL (4.0-11.0) Red Blood Count 4.40 x10^6/uL (4.30-5.70) Hemoglobin 12.9 g/dL (13.0-17.5) Hematocrit 39.6 % (39.0-53.0) Mean Corpuscular Volume 90 fL (79-100) Mean Corpuscular Hemoglobin 29 pg (25-35) Mean Corpuscular Hemoglobin Concent 33 g/dL (31-37) Red Cell Distribution Width 18.0 % (11.5-14.5) Platelet Count 13 x10^3/uL (140-400) Neutrophils (%) (Auto) 90 % (31-73) Lymphocytes (%) (Auto) 6 % (24-48) Monocytes (%) (Auto) 3 % (0-9) Eosinophils (%) (Auto) 1 % (0-3) Basophils (%) (Auto) 1 % (0-3) Neutrophils # (Auto) 4.9 x10^3uL (1.8-7.7) Lymphocytes # (Auto) 0.3 x10^3/uL (1.0-4.8) Monocytes # (Auto) 0.2 x10^3/uL (0.0-1.1) Eosinophils # (Auto) 0.1 x10^3/uL (0.0-0.7) Basophils # (Auto) 0.0 x10^3/uL (0.0-0.2) Segmented Neutrophils % 80 % (35-66) Band Neutrophils % 10 % (0-9) Lymphocytes % 5 % (24-48) Monocytes % 4 % (0-10) Metamyelocytes % 1 % (0-0) Toxic Granulation Marked Dohle Bodies Few Platelet Estimate Decreased (ADEQUATE) Polychromasia Slight Anisocytosis Slight Sodium Level 140 mmol/L (136-145) Potassium Level 4.7 mmol/L (3.5-5.1) Chloride Level 97 mmol/L (98-107) Carbon Dioxide Level 37 mmol/L (21-32) Anion Gap 6 (6-14) Blood Urea Nitrogen 21 mg/dL (8-26) Creatinine 1.1 mg/dL (0.7-1.3) Estimated GFR (Cockcroft-Gault) 69.0 BUN/Creatinine Ratio 19 (6-20) Glucose Level 127 mg/dL (70-99) Lactic Acid Level 1.4 mmol/L (0.4-2.0) Calcium Level 9.6 mg/dL (8.5-10.1) Total Bilirubin 0.7 mg/dL (0.2-1.0) Aspartate Amino Transf (AST/SGOT) 13 U/L (15-37) Alanine Aminotransferase (ALT/SGPT) 20 U/L (16-63) Alkaline Phosphatase 76 U/L (46-116) Troponin I Quantitative < 0.017 ng/mL (0.000-0.055) CL-Jku-T-Type Natriuretic Peptide 379 pg/mL (0-124) Total Protein 8.1 g/dL (6.4-8.2) Albumin 3.4 g/dL (3.4-5.0) Albumin/Globulin Ratio 0.7 (1.0-1.7) Influenza Type A Antigen Negative (NEGATIVE) Influenza Type B Antigen Negative (NEGATIVE) Medications Active Scripts Medications Dose Route/Sig Max Daily Dose Days Date Category Oxycodone Hcl Immed.release (Oxycodone Hcl) 30 Mg Tablet 20 Mg PO Q3HRS PRN 02/09/18 Reported Oxycodone Hcl Immed.release (Oxycodone Hcl) 30 Mg Tablet 1 Tab PO Q4HRS 02/09/18 Reported Vitamin B-12 (Cyanocobalamin (Vitamin B-12)) 1,000 Mcg Tablet 1,000 Mcg PO DAILY 06/20/16 Reported Multivitamins (Multivitamin) 1 Each Tablet 1 Each PO DAILY 04/02/16 Reported Compazine (Prochlorperazine Maleate) 10 Mg Tablet 10 Mg PO Q 6 HRS PRN 10/23/14 Reported Zofran (Ondansetron Hcl) 8 Mg Tablet PO Q 8HRS PRN 10/23/14 Reported Albuterol Sulfate Neb Soln (Albuterol Sulfate) 1.25 Mg/3 Ml Vial.neb 1.25 Mg NEB PRN QID PRN 09/12/14 Reported Miralax (Polyethylene Glycol 3350) 17 Gm Powd.pack 1 Pkt PO PRN DAILY PRN 09/12/14 Reported Testosterone Cypionate 200 Mg/1 Ml Vial 1 Ml IM QMONTH 09/04/14 Reported Trazodone Hcl 150 Mg Tablet 150 Mg PO HS 09/04/14 Reported FENTANYL 100mcg/hr (Fentanyl) 1 Each Patch.td72 2 Patch TP Q3DAYS 09/01/14 Reported Potassium Chloride 20 Meq Tab.er.prt 20 Meq PO DAILY 09/01/14 Reported Atorvastatin Calcium 10 Mg Tablet 1 Tab PO DAILY 09/01/14 Reported Tamsulosin Hcl 0.4 Mg Cap.er.24h 1 Cap PO HS 09/01/14 Reported Proair Hfa Inhaler (Albuterol Sulfate) 8.5 Gm Hfa.aer.ad 2 Puff IH PRN Q2HR PRN 09/01/14 Reported Impression . DICTATED AECOPD THANKS ROSAURA MONTALVO MD Aug 24, 2018 11:15
--- NOTE | 2018-08-24 14:21 | CONS ---
DATE OF CONSULTATION: 08/24/2018 ATTENDING PHYSICIAN: Mabel Graham DO. REASON FOR CONSULTATION: The patient seen in pulmonary consultation at the request of Dr. Graham for increasing shortness of air. HISTORY OF PRESENT ILLNESS: The patient is a 58-year-old male who has been undergoing treatment for lung cancer since 07/2014. He is currently receiving chemotherapy once a week. He presented with increasing shortness of breath, cough productive of discolored sputum. CT angiogram was reviewed. There was no evidence of pulmonary emboli. The patient reports no fever, chills, nausea, vomiting, diarrhea. Continues to smoke. PAST MEDICAL HISTORY: 1. Lung cancer diagnosed in 07/2014, undergoing current chemotherapy. 2. Chronic obstructive pulmonary disease. 3. Tobacco dependence. 4. Chronic back pain. PAST SURGICAL HISTORY: No recent major surgery. ALLERGIES: No known drug allergies. CURRENT MEDICATIONS: List was reviewed. REVIEW OF SYSTEMS: CONSTITUTIONAL: Subjective fever. EYES: No change in visual acuity. HEENT: No nasal congestion or sore throat. PULMONARY: As indicated above. CARDIOVASCULAR: No chest pain or pressure. GASTROINTESTINAL: No nausea, vomiting, diarrhea. GENITOURINARY: No dysuria or frequency. MUSCULOSKELETAL: No localized muscle aches or joint pains. SKIN: No new skin rashes. NEUROLOGIC: No headaches, diplopia or blurred vision. CURRENT MEDICATION: List was reviewed. PHYSICAL EXAMINATION: VITAL SIGNS: Stable. O2 saturation was greater than 92%, currently on 2 liters. HEENT: Eyes, the sclerae were nonicteric. NECK: Jugular venous distention was not elevated. No lymphadenopathy. CHEST: Full expansion. LUNGS: Poor airway flow with no wheezes. CARDIOVASCULAR: Regular rate and rhythm with S1, S2. No S3. ABDOMEN: Soft, nontender, nondistended. EXTREMITIES: No clubbing, cyanosis or edema. LABORATORY DATA: Reviewed. CT angiogram reviewed, no evidence of pulmonary embolism. IMPRESSION: 1. Acute on chronic respiratory failure, multifactorial. 2. Acute exacerbation of chronic obstructive pulmonary disease. 3. Acute nonspecific bronchitis. 4. Abnormal CT revealing possible lymphangitic spread. 5. History of lung cancer diagnosed in 08/13/2018, undergoing chemotherapy. 6. Tobacco dependence. PLAN: 1. Continue current IV steroids and antibiotics. 2. Oxygen supplementation. 3. The patient instructed on the importance of discontinuing tobacco use. 4. DVT prophylaxis. I do appreciate the privilege in sharing in the patient's care. ROASURA MONTALVO MD DR: CARMITA/sergio JOB#: [id number] / [id number]
[2018-08-24 15:15] VITALS: BP 124/58
[2018-08-24 19:20] VITALS: BP 113/63
[2018-08-24] MEDS: traZODone 50 MG TABLET. PO SCH (21:58)
[2018-08-24] MEDS: cefTRIAXone IV Push 1 GM VIAL. IVP SCH (21:58)
[2018-08-24] MEDS: TAMSULOSIN 0.4 MG CAP.ER.24H. PO SCH (21:58)
[2018-08-24] MEDS: methylPREDNISolone SOD SUCC PF 125 MG/2 ML VIAL. IV SCH (21:58)
[2018-08-24] MEDS: ATORVASTATIN CALCIUM 10 MG TABLET. PO SCH (21:59)
[2018-08-24] MEDS: AZITHROMYCIN 500 MG in IV NORMAL SALINE 250ML 250 ML IV SCH (21:59)
[2018-08-24 23:20] VITALS: BP 103/51
[2018-08-25 03:20] VITALS: BP 114/72
[2018-08-25] MEDS: IPRATRPIUM/ALBUTEROL 0.5/2.5MG 3 ML NEBU. NEB SCH ×5 (06:50→19:59)
[2018-08-25 06:59] LABS: BASO # 0.1 x10^3/uL (0.0-0.2); BASO % 1 % (0-3); EOS % 0 % (0-3); HEMATOCRIT 25.2 % (39.0-53.0); HEMOGLOBIN 8.1 g/dL (13.0-17.5); LYMPH # 0.4 x10^3/uL (1.0-4.8); LYMPH % 5 % (24-48); MEAN CORPUSCULAR HEMOGLOBIN 29 pg (25-35); MEAN CORPUSCULAR HGB CONC 32 g/dL (31-37); MEAN CORPUSCULAR VOLUME 91 fL (79-100); MONO # 0.1 x10^3/uL (0.0-1.1); MONO % 1 % (0-9); NEUT # 7.8 x10^3uL (1.8-7.7); NEUT % 93 % (31-73); RED BLOOD COUNT 2.78 x10^6/uL (4.30-5.70); RED CELL DISTRIBUTION WIDTH 17.9 % (11.5-14.5); WHITE BLOOD COUNT 8.4 x10^3/uL (4.0-11.0)
[2018-08-25 07:00] VITALS: BP 115/62
[2018-08-25 07:06] LABS: PLATELET COUNT 20 x10^3/uL (140-400)
[2018-08-25 07:29] LABS: ALBUMIN 2.8 g/dL (3.4-5.0); ALBUMIN/GLOBULIN RATIO 0.8 (1.0-1.7); CALCIUM 8.7 mg/dL (8.5-10.1); CREATININE 1.1 mg/dL (0.7-1.3); TOTAL BILIRUBIN 0.2 mg/dL (0.2-1.0); TOTAL PROTEIN 6.1 g/dL (6.4-8.2)
[2018-08-25 07:30] LABS: POTASSIUM 5.3 mmol/L (3.5-5.1)
--- NOTE | 2018-08-25 08:09 | PDOC ---
SUBJECTIVE Subjective Pt still having troubles with his breathing... thinks that it is about the same as yesterday. Slumped over on the side of the bed. Tried to get pt repositioned in bed and he stated he was fine where he was was. O2 sats ranged from 85%-95% OBJECTIVE Vital Signs Vital Signs Date Time Temp Pulse Resp B/P (MAP) Pulse Ox O2 Delivery O2 Flow Rate FiO2 08/25/18 07:00 98.1 100 24 115/62 (79) 92 Nasal Cannula 4.0 98.1 08/25/18 06:51 96 Nasal Cannula 2.0 08/25/18 06:11 Nasal Cannula 3.0 08/25/18 03:20 98.0 96 20 114/72 (86) 92 Nasal Cannula 4.0 98.0 08/25/18 02:46 Nasal Cannula 3.0 08/25/18 01:46 Nasal Cannula 3.0 08/24/18 23:20 99.1 97 20 103/51 (68) 97 Nasal Cannula 4.0 99.1 08/24/18 21:59 Nasal Cannula 3.0 08/24/18 21:30 99 Nasal Cannula 2.0 08/24/18 20:02 Nasal Cannula 3.0 08/24/18 19:20 98.4 99 20 113/63 (80) 98 Nasal Cannula 4.0 98.4 08/24/18 19:08 Room Air 08/24/18 18:08 18 93 Nasal Cannula 2.0 08/24/18 16:12 93 Nasal Cannula 2.0 08/24/18 15:15 99.4 105 20 124/58 (80) 97 Nasal Cannula 4.0 99.4 08/24/18 15:10 18 97 3.0 08/24/18 14:30 18 93 Nasal Cannula 3.0 08/24/18 14:02 18 97 Nasal Cannula 2.0 08/24/18 11:42 97 Nasal Cannula 2.0 08/24/18 11:15 97.8 103 20 118/74 (89) 97 Nasal Cannula 4.0 97.8 08/24/18 10:34 20 98 Nasal Cannula 3.0 08/24/18 10:26 20 98 Nasal Cannula 3.0 I & O Intake and Output 08/25/18 07:01 Intake Total 1250 ml Output Total 200 ml Balance 1050 ml Intake Oral 1250 ml Output Urine Total 200 ml # Bowel Movements 1 PHYSICAL EXAM Physical Exam GEN: NAD, sleeping initially but arousable HEENT: MMM, EOMI, no scleral icterus/injection Cardiac: RRR, No M/R/G Lungs: CTAB, poor airflow throughout Ext: no erythema/edema LE bilaterally Nuero: CN2-12 GI ASSESSMENT/PLAN Assessment/Plan Pt is a 58yo CM admitted for acute on chronic respiratory failure 1. Acute on chronic respiratory failure- 2/2 postobstructive PNA and COPD exacerbation. Pt currently receiving Ceftriaxone, Azithromycin and IV solumedrol 2. Postobstructive pneumonia. 3. Metastatic lung cancer with mets to bone. 4. Thrombocytopenia- severe. No visible active bleeding, but Hb has decreased from 12.9 to 8.1 from admission. CTM 5. Mild hyperglycemia. 6. Chronic obstructive pulmonary disease. 7. Acute anemia- see above. 8. Hyperkalemia- will recheck tomorrow. Kidney function WNL, possible hemolyzation 9. PEM- moderate COMMENT Lab Laboratory Tests Test 08/25/18 05:35 08/25/18 06:40 Sodium Level 143 mmol/L (136-145) Potassium Level 5.3 mmol/L (3.5-5.1) Chloride Level 103 mmol/L (98-107) Carbon Dioxide Level 35 mmol/L (21-32) Anion Gap 5 (6-14) Blood Urea Nitrogen 20 mg/dL (8-26) Creatinine 1.1 mg/dL (0.7-1.3) Estimated GFR (Cockcroft-Gault) 69.0 BUN/Creatinine Ratio 18 (6-20) Glucose Level 154 mg/dL (70-99) Calcium Level 8.7 mg/dL (8.5-10.1) Total Bilirubin 0.2 mg/dL (0.2-1.0) Aspartate Amino Transf (AST/SGOT) 12 U/L (15-37) Alanine Aminotransferase (ALT/SGPT) 19 U/L (16-63) Alkaline Phosphatase 66 U/L (46-116) Total Protein 6.1 g/dL (6.4-8.2) Albumin 2.8 g/dL (3.4-5.0) Albumin/Globulin Ratio 0.8 (1.0-1.7) White Blood Count 8.4 x10^3/uL (4.0-11.0) Red Blood Count 2.78 x10^6/uL (4.30-5.70) Hemoglobin 8.1 g/dL (13.0-17.5) Hematocrit 25.2 % (39.0-53.0) Mean Corpuscular Volume 91 fL (79-100) Mean Corpuscular Hemoglobin 29 pg (25-35) Mean Corpuscular Hemoglobin Concent 32 g/dL (31-37) Red Cell Distribution Width 17.9 % (11.5-14.5) Platelet Count 20 x10^3/uL (140-400) Neutrophils (%) (Auto) 93 % (31-73) Lymphocytes (%) (Auto) 5 % (24-48) Monocytes (%) (Auto) 1 % (0-9) Eosinophils (%) (Auto) 0 % (0-3) Basophils (%) (Auto) 1 % (0-3) Neutrophils # (Auto) 7.8 x10^3uL (1.8-7.7) Lymphocytes # (Auto) 0.4 x10^3/uL (1.0-4.8) Monocytes # (Auto) 0.1 x10^3/uL (0.0-1.1) Eosinophils # (Auto) 0.0 x10^3/uL (0.0-0.7) Basophils # (Auto) 0.1 x10^3/uL (0.0-0.2) ANNI HENNESSY MD Aug 25, 2018 08:09
[2018-08-25] MEDS ORDERED: POLYETHYLENE GLYCOL 3350 17 GM PACKET. PO PRN (09:00)
[2018-08-25] MEDS: POTASSIUM CHLORIDE 20 MEQ TABLET.ER. PO SCH (09:00)
[2018-08-25] MEDS: CYANOCOBALAMIN (VITAMIN B-12) 1,000 MCG TABLET. PO SCH (09:10)
[2018-08-25] MEDS: methylPREDNISolone SOD SUCC PF 125 MG/2 ML VIAL. IV SCH ×2 (09:11→20:37)
[2018-08-25] MEDS: guaiFENesin DM 200MG/20MG 10 ML SYRUP PO PRN ×3 (09:12→23:05)
[2018-08-25] MEDS: MULTIVITAMIN with MINERAL TABLET. PO SCH (09:15)
--- NOTE | 2018-08-25 09:15 | PDOC2 ---
CONSULT Date of Consult Date of Consult DATE: 08/25/18 TIME: 09:04 Reason for consultation: Lung cancer Consult: Hematology oncology, Dr. Manuel Jack History of present illness: He is a 58-year-old male with lung cancer on topotecan for recurrent small cell, he had his 26th cycle, day 5 chemotherapy given on 13 August, he was also given Aranesp that day and Neulasta on 16 August. He is admitted with dyspnea, acute, worsening over time, severe, improved with oxygen and antibiotics and steroids, associated with chest pain and sputum production, usually on 3/4 L O2 continuously at home. Platelet count is very low and CT showed no evidence of PE but scattered bilateral opacities favoring infectious or inflammatory process. Past medical history: Recurrent small cell lung cancer Degenerative disc disease COPD History of tobacco abuse Past surgical history: Hernia repair C-spine laminectomy/fusion Back stimulator in and out 2 shoulder scopes back surgery Allergies: No known drug allergies Medications: See attached list Social history: , still smoking, no alcohol Family history: Cancer and hypertension Review of systems: Nausea, constipation, cough, sputum production, fevers and chills at home but no fevers here, dyspnea, weight loss, numbness and tingling chronically left lower extremity, continuous home oxygen use, erythema at his forehead likely related to compression, otherwise 10 point review of systems negative Physical exam: Vitals reviewed Gen.: thin man in no acute distress, w/ alopecia, cough and sputum production HEENT: mucous membranes moist, head normocephalic atraumatic Neck: Supple, no lymphadenopathy Lymph nodes: No palpable lymphadenopathy neck or axilla Lungs: Breathing comfortably on NCO2 (inc'd to 3 L per request), w/o respiratory distress Heart: Regular rate and rhythm Abdomen: Soft, nontender, nondistended Extremities: No cyanosis or signif edema Skin: No obvious skin breakdown, mild erythema between the eyes related to leaning his head on his table Neuro: Alert and oriented 3 Psych: pleasant mood and affect Lab reviewed: White count 8.4, hemoglobin 8.1, platelets 20,000 up from 13,000 on admit Creatinine 1.1 Influenza a/b neg Blood cultures 2 no growth to date Rads reviewed: CT angiogram 24 August no PE, scattered bilateral opacities, favor infectious or inflammatory versus less likely lymphangitic spread Case discussed with: Patient, records reviewed in [facility], [facility], labs and radiology, please see note for summary details. Assessment and Plan: He is a 58-year-old male, followed by Dr. Cardenas, with recurrent small cell, currently on palliative chemotherapy, who completed day 5 of cycle 26 on 13 August, he received Aranesp on 13 August and Neulasta on 16 August, he is admitted with acute exacerbation of COPD and improving thus far. Lung cancer: Chemotherapy on hold during current admit, follow-up CT scans will be due after cycle 28 unless needed sooner, he does continue Neulasta and Aranesp through the clinic, and will follow-up with Dr. Cardenas upon discharge. He does have medications for nausea and constipation and pain as needed as well as chronic pain medications. COPD: Appreciate pulmonary input, on antibiotics and steroids, and oxygen Thrombocytopenia: Related to chemotherapy, Improving, chemical DVT prophylaxis held with platelet count less than 50 tobacco abuse: Highly recommend complete and total smoking cessation, he is working on this DVT prophylaxis: SCDs while in bed Thank you kindly for this consultation, Dr. Cardenas will return tomorrow. Past Medical History Cardiovascular: No pertinent hx Pulmonary: COPD, Other GI: No pertinent hx Heme/Onc: Cancer Hepatobiliary: No pertinent hx Psych: No pertinent hx Rheumatologic: No pertinent hx Infectious disease: No pertinent hx Renal/: No pertinent hx Endocrine: No pertinent hx, Other Past Surgical History Past Surgical History: Other Family History Family History: No Significant Social History ALCOHOL: none Drugs: None Lives: with Family Current Problem List Problem List Problems Medical Problems: (1) Chest pain Status: Acute (2) Pneumonia Status: Acute (3) Shortness of breath Status: Acute Current Medications Current Medications Current Medications Ipratropium Effie (Atrovent) 0.5 mg 1X ONCE NEB Last administered on at 23:12; Start 08/23/18 at 23:30; Stop 08/23/18 at 23:31; Status DC Sodium Chloride 500 ml @ 500 mls/hr 1X ONCE IV Last administered on at 23:26; Start 08/23/18 at 23:30; Stop 08/24/18 at 00:29; Status DC Albuterol Sulfate (Ventolin Neb Soln) 2.5 mg 1X ONCE NEB Last administered on 08/23/18at 23:11; Start 08/23/18 at 23:30; Stop 08/23/18 at 23:31; Status DC Iohexol (Omnipaque 300 Mg/ml) 100 ml 1X ONCE IV Last administered on at 23:59; Start 08/24/18 at 00:00; Stop 08/24/18 at 00:01; Status DC Info (CONTRAST GIVEN -- Rx MONITORING) 1 each PRN DAILY PRN MC SEE COMMENTS; Start 08/23/18 at 23:45; Stop 08/25/18 at 23:44 Albuterol/ Ipratropium (Duoneb) 3 ml 1X ONCE NEB Last administered on at 00:30; Start 08/24/18 at 00:45; Stop 08/24/18 at 00:46; Status DC Ceftriaxone Sodium (Rocephin) 1 gm 1X ONCE IVP Last administered on at 01:57; Start 08/24/18 at 01:30; Stop 08/24/18 at 01:31; Status DC Azithromycin 250 ml @ 250 mls/hr 1X ONCE IV Last administered on 08/24/18at 02:03; Start 08/24/18 at 01:30; Stop 08/24/18 at 02:29; Status DC Ondansetron HCl (Zofran) 4 mg PRN Q8HRS PRN IV NAUSEA/VOMITING 1ST CHOICE; Start 08/24/18 at 01:15; Stop 08/24/18 at 09:05; Status DC Acetaminophen (Tylenol) 650 mg PRN Q4HRS PRN PO FEVER Last administered on at 21:58; Start 08/24/18 at 01:15; Stop 08/25/18 at 01:14; Status DC Albuterol/ Ipratropium (Duoneb) 3 ml RTQID NEB Last administered on 08/25/18at 06:50; Start 08/24/18 at 08:00; Stop 08/25/18 at 07:51; Status DC Oxycodone HCl (Roxicodone) 20 mg PRN Q3HRS PRN PO SEVERE PAIN Last administered on 08/24/18at 06:26; Start 08/24/18 at 03:15 Albuterol Sulfate (Ventolin Neb Soln) 2.5 mg PRN QID PRN NEB SHORTNESS OF BREATH Last administered on 08/24/18 03:59; Start 08/24/18 at 03:30; Stop at 05:47; Status DC Guaifenesin (Robitussin Dm) 10 ml PRN Q6HRS PRN PO COUGH 1ST CHOICE Last administered on 08/24/18at 21:57; Start 08/24/18 at 03:15 Albuterol Sulfate (Ventolin Neb Soln) 2.5 mg PRN Q2HRS PRN NEB SHORTNESS OF BREATH; Start 08/24/18 at 06:00; Stop 08/24/18 at 08:59; Status DC Albuterol Sulfate (Ventolin Neb Soln) 0.083 mg PRN Q2HR PRN NEB SHORTNESS OF BREATH; Start 08/24/18 at 09:00 Atorvastatin Calcium (Lipitor) 10 mg QHS PO Last administered on 08/24/18at 21: 59; Start 08/24/18 at 21:00 Cyanocobalamin (Vitamin B-12) 1,000 mcg DAILY PO Last administered on at 10:19; Start 08/24/18 at 09:00 Oxycodone HCl (Roxicodone) 30 mg Q4HRS PO Last administered on 08/24/18at 18:08 ; Start 08/24/18 at 09:00; Stop 08/24/18 at 19:35; Status DC Potassium Chloride (Klor-Con) 20 meq DAILY PO ; Start 08/24/18 at 09:00 Tamsulosin HCl (Flomax) 0.4 mg HS PO Last administered on 08/24/18at 21:58; Start 08/24/18 at 21:00 Fentanyl (Duragesic 100mcg/Hr Patch) 2 patch Q3DAYS TD Last administered on at 10:26; Start 08/24/18 at 10:00; Stop 08/24/18 at 15:09; Status DC Multivitamins (Thera M Plus) 1 tab DAILY PO Last administered on 08/24/18at 10: 19; Start 08/24/18 at 09:00 Polyethylene Glycol (miraLAX PACKET) 17 gm PRN DAILY PRN PO CONSTIPATION; Start 08/25/18 at 09:00 Prochlorperazine Maleate (Compazine) 10 mg PRN Q6HRS PRN PO NAUSEA/VOMITING; Start 08/24/18 at 09:15 Trazodone HCl (Desyrel) 150 mg QHS PO Last administered on 08/24/18at 21:58; Start 08/24/18 at 21:00 Ondansetron HCl (Zofran) 4 mg PRN Q6HRS PRN IV NAUSEA/VOMITING; Start at 09:00 Enoxaparin Sodium (Lovenox 40mg Syringe) 40 mg Q24H SQ ; Start 08/24/18 at 10: 00; Stop 08/24/18 at 15:02; Status DC Fentanyl (Duragesic 100mcg/Hr Patch) 1 patch Q3DAYS TD ; Start 08/27/18 at 09: 00 Ceftriaxone Sodium (Rocephin) 1 gm Q24H IVP Last administered on 08/24/18at 21: 58; Start 08/24/18 at 22:00 Azithromycin 500 mg/Sodium Chloride 250 ml @ 250 mls/hr Q24H IV Last administered on 08/24/18at 21:59; Start 08/24/18 at 21:00 Methylprednisolone Sodium Succinate (SOLU-Medrol 125MG VIAL) 60 mg Q12HR IV Last administered on 08/24/18at 21:58; Start 08/24/18 at 21:00 Oxycodone HCl (Roxicodone) 30 mg Q4H PO Last administered on 08/25/18at 06:11; Start 08/24/18 at 22:00 Albuterol/ Ipratropium (Duoneb) 3 ml RTQID NEB ; Start 08/25/18 at 08:00 Active Scripts Active Reported Oxycodone Hcl Immed.release (Oxycodone Hcl) 30 Mg Tablet 20 Mg PO Q3HRS PRN Oxycodone Hcl Immed.release (Oxycodone Hcl) 30 Mg Tablet 1 Tab PO Q4HRS Vitamin B-12 (Cyanocobalamin (Vitamin B-12)) 1,000 Mcg Tablet 1,000 Mcg PO DAILY Multivitamins (Multivitamin) 1 Each Tablet 1 Each PO DAILY Compazine (Prochlorperazine Maleate) 10 Mg Tablet 10 Mg PO Q 6 HRS PRN Zofran (Ondansetron Hcl) 8 Mg Tablet PO Q 8HRS PRN Albuterol Sulfate Neb Soln (Albuterol Sulfate) 1.25 Mg/3 Ml Vial.neb 1.25 Mg NEB PRN QID PRN Miralax (Polyethylene Glycol 3350) 17 Gm Powd.pack 1 Pkt PO PRN DAILY PRN Testosterone Cypionate 200 Mg/1 Ml Vial 1 Ml IM QMONTH Trazodone Hcl 150 Mg Tablet 150 Mg PO HS FENTANYL 100mcg/hr (Fentanyl) 1 Each Patch.td72 2 Patch TP Q3DAYS Potassium Chloride 20 Meq Tab.er.prt 20 Meq PO DAILY Atorvastatin Calcium 10 Mg Tablet 1 Tab PO DAILY Tamsulosin Hcl 0.4 Mg Cap.er.24h 1 Cap PO HS Proair Hfa Inhaler (Albuterol Sulfate) 8.5 Gm Hfa.aer.ad 2 Puff IH PRN Q2HR PRN Allergies Allergies: Coded Allergies: No Known Drug Allergies (Unverified , 02/15/18) Vitals VITALS Vital Signs Date Time Temp Pulse Resp B/P (MAP) Pulse Ox O2 Delivery O2 Flow Rate FiO2 08/25/18 07:00 98.1 100 24 115/62 (79) 92 Nasal Cannula 4.0 98.1 Labs Labs Laboratory Tests Test 08/23/18 22:50 08/23/18 23:35 08/25/18 05:35 08/25/18 06:40 White Blood Count 5.5 x10^3/uL (4.0-11.0) 8.4 x10^3/uL (4.0-11.0) Red Blood Count 4.40 x10^6/uL (4.30-5.70) 2.78 x10^6/uL (4.30-5.70) Hemoglobin 12.9 g/dL (13.0-17.5) 8.1 g/dL (13.0-17.5) Hematocrit 39.6 % (39.0-53.0) 25.2 % (39.0-53.0) Mean Corpuscular Volume 90 fL (79-100) 91 fL (79-100) Mean Corpuscular Hemoglobin 29 pg (25-35) 29 pg (25-35) Mean Corpuscular Hemoglobin Concent 33 g/dL (31-37) 32 g/dL (31-37) Red Cell Distribution Width 18.0 % (11.5-14.5) 17.9 % (11.5-14.5) Platelet Count 13 x10^3/uL (140-400) 20 x10^3/uL (140-400) Neutrophils (%) (Auto) 90 % (31-73) 93 % (31-73) Lymphocytes (%) (Auto) 6 % (24-48) 5 % (24-48) Monocytes (%) (Auto) 3 % (0-9) 1 % (0-9) Eosinophils (%) (Auto) 1 % (0-3) 0 % (0-3) Basophils (%) (Auto) 1 % (0-3) 1 % (0-3) Neutrophils # (Auto) 4.9 x10^3uL (1.8-7.7) 7.8 x10^3uL (1.8-7.7) Lymphocytes # (Auto) 0.3 x10^3/uL (1.0-4.8) 0.4 x10^3/uL (1.0-4.8) Monocytes # (Auto) 0.2 x10^3/uL (0.0-1.1) 0.1 x10^3/uL (0.0-1.1) Eosinophils # (Auto) 0.1 x10^3/uL (0.0-0.7) 0.0 x10^3/uL (0.0-0.7) Basophils # (Auto) 0.0 x10^3/uL (0.0-0.2) 0.1 x10^3/uL (0.0-0.2) Segmented Neutrophils % 80 % (35-66) Band Neutrophils % 10 % (0-9) Lymphocytes % 5 % (24-48) Monocytes % 4 % (0-10) Metamyelocytes % 1 % (0-0) Toxic Granulation Marked Dohle Bodies Few Platelet Estimate Decreased (ADEQUATE) Polychromasia Slight Anisocytosis Slight Sodium Level 140 mmol/L (136-145) 143 mmol/L (136-145) Potassium Level 4.7 mmol/L (3.5-5.1) 5.3 mmol/L (3.5-5.1) Chloride Level 97 mmol/L (98-107) 103 mmol/L (98-107) Carbon Dioxide Level 37 mmol/L (21-32) 35 mmol/L (21-32) Anion Gap 6 (6-14) 5 (6-14) Blood Urea Nitrogen 21 mg/dL (8-26) 20 mg/dL (8-26) Creatinine 1.1 mg/dL (0.7-1.3) 1.1 mg/dL (0.7-1.3) Estimated GFR (Cockcroft-Gault) 69.0 69.0 BUN/Creatinine Ratio 19 (6-20) 18 (6-20) Glucose Level 127 mg/dL (70-99) 154 mg/dL (70-99) Lactic Acid Level 1.4 mmol/L (0.4-2.0) Calcium Level 9.6 mg/dL (8.5-10.1) 8.7 mg/dL (8.5-10.1) Total Bilirubin 0.7 mg/dL (0.2-1.0) 0.2 mg/dL (0.2-1.0) Aspartate Amino Transf (AST/SGOT) 13 U/L (15-37) 12 U/L (15-37) Alanine Aminotransferase (ALT/SGPT) 20 U/L (16-63) 19 U/L (16-63) Alkaline Phosphatase 76 U/L (46-116) 66 U/L (46-116) Troponin I Quantitative < 0.017 ng/mL (0.000-0.055) VC-Mfg-C-Type Natriuretic Peptide 379 pg/mL (0-124) Total Protein 8.1 g/dL (6.4-8.2) 6.1 g/dL (6.4-8.2) Albumin 3.4 g/dL (3.4-5.0) 2.8 g/dL (3.4-5.0) Albumin/Globulin Ratio 0.7 (1.0-1.7) 0.8 (1.0-1.7) Influenza Type A Antigen Negative (NEGATIVE) Influenza Type B Antigen Negative (NEGATIVE) Laboratory Tests Test 08/25/18 05:35 08/25/18 06:40 Sodium Level 143 mmol/L (136-145) Potassium Level 5.3 mmol/L (3.5-5.1) Chloride Level 103 mmol/L (98-107) Carbon Dioxide Level 35 mmol/L (21-32) Anion Gap 5 (6-14) Blood Urea Nitrogen 20 mg/dL (8-26) Creatinine 1.1 mg/dL (0.7-1.3) Estimated GFR (Cockcroft-Gault) 69.0 BUN/Creatinine Ratio 18 (6-20) Glucose Level 154 mg/dL (70-99) Calcium Level 8.7 mg/dL (8.5-10.1) Total Bilirubin 0.2 mg/dL (0.2-1.0) Aspartate Amino Transf (AST/SGOT) 12 U/L (15-37) Alanine Aminotransferase (ALT/SGPT) 19 U/L (16-63) Alkaline Phosphatase 66 U/L (46-116) Total Protein 6.1 g/dL (6.4-8.2) Albumin 2.8 g/dL (3.4-5.0) Albumin/Globulin Ratio 0.8 (1.0-1.7) White Blood Count 8.4 x10^3/uL (4.0-11.0) Red Blood Count 2.78 x10^6/uL (4.30-5.70) Hemoglobin 8.1 g/dL (13.0-17.5) Hematocrit 25.2 % (39.0-53.0) Mean Corpuscular Volume 91 fL (79-100) Mean Corpuscular Hemoglobin 29 pg (25-35) Mean Corpuscular Hemoglobin Concent 32 g/dL (31-37) Red Cell Distribution Width 17.9 % (11.5-14.5) Platelet Count 20 x10^3/uL (140-400) Neutrophils (%) (Auto) 93 % (31-73) Lymphocytes (%) (Auto) 5 % (24-48) Monocytes (%) (Auto) 1 % (0-9) Eosinophils (%) (Auto) 0 % (0-3) Basophils (%) (Auto) 1 % (0-3) Neutrophils # (Auto) 7.8 x10^3uL (1.8-7.7) Lymphocytes # (Auto) 0.4 x10^3/uL (1.0-4.8) Monocytes # (Auto) 0.1 x10^3/uL (0.0-1.1) Eosinophils # (Auto) 0.0 x10^3/uL (0.0-0.7) Basophils # (Auto) 0.1 x10^3/uL (0.0-0.2) MANUEL JACK MD Aug 25, 2018 09:15
--- NOTE | 2018-08-25 09:37 | PDOC ---
PULMONARY PROGRESS NOTES Subjective PT LESS SOA AND WHEEZE Vitals Vital Signs Date Time Temp Pulse Resp B/P (MAP) Pulse Ox O2 Delivery O2 Flow Rate FiO2 08/25/18 07:15 92 Nasal Cannula 3.0 08/25/18 07:00 98.1 100 24 115/62 (79) 98.1 ROS: No Nausea, No Chest Pain, No Abdominal Pain, No Increase Cough General: Alert Lungs: Wheezing Cardiovascular: S1, S2 Abdomen: Soft Neuro Exam: Alert Extremities: No Edema Skin: Warm Labs Laboratory Tests Test 08/23/18 22:50 08/23/18 23:35 08/25/18 05:35 08/25/18 06:40 White Blood Count 5.5 x10^3/uL (4.0-11.0) 8.4 x10^3/uL (4.0-11.0) Red Blood Count 4.40 x10^6/uL (4.30-5.70) 2.78 x10^6/uL (4.30-5.70) Hemoglobin 12.9 g/dL (13.0-17.5) 8.1 g/dL (13.0-17.5) Hematocrit 39.6 % (39.0-53.0) 25.2 % (39.0-53.0) Mean Corpuscular Volume 90 fL (79-100) 91 fL (79-100) Mean Corpuscular Hemoglobin 29 pg (25-35) 29 pg (25-35) Mean Corpuscular Hemoglobin Concent 33 g/dL (31-37) 32 g/dL (31-37) Red Cell Distribution Width 18.0 % (11.5-14.5) 17.9 % (11.5-14.5) Platelet Count 13 x10^3/uL (140-400) 20 x10^3/uL (140-400) Neutrophils (%) (Auto) 90 % (31-73) 93 % (31-73) Lymphocytes (%) (Auto) 6 % (24-48) 5 % (24-48) Monocytes (%) (Auto) 3 % (0-9) 1 % (0-9) Eosinophils (%) (Auto) 1 % (0-3) 0 % (0-3) Basophils (%) (Auto) 1 % (0-3) 1 % (0-3) Neutrophils # (Auto) 4.9 x10^3uL (1.8-7.7) 7.8 x10^3uL (1.8-7.7) Lymphocytes # (Auto) 0.3 x10^3/uL (1.0-4.8) 0.4 x10^3/uL (1.0-4.8) Monocytes # (Auto) 0.2 x10^3/uL (0.0-1.1) 0.1 x10^3/uL (0.0-1.1) Eosinophils # (Auto) 0.1 x10^3/uL (0.0-0.7) 0.0 x10^3/uL (0.0-0.7) Basophils # (Auto) 0.0 x10^3/uL (0.0-0.2) 0.1 x10^3/uL (0.0-0.2) Segmented Neutrophils % 80 % (35-66) Band Neutrophils % 10 % (0-9) Lymphocytes % 5 % (24-48) Monocytes % 4 % (0-10) Metamyelocytes % 1 % (0-0) Toxic Granulation Marked Dohle Bodies Few Platelet Estimate Decreased (ADEQUATE) Polychromasia Slight Anisocytosis Slight Sodium Level 140 mmol/L (136-145) 143 mmol/L (136-145) Potassium Level 4.7 mmol/L (3.5-5.1) 5.3 mmol/L (3.5-5.1) Chloride Level 97 mmol/L (98-107) 103 mmol/L (98-107) Carbon Dioxide Level 37 mmol/L (21-32) 35 mmol/L (21-32) Anion Gap 6 (6-14) 5 (6-14) Blood Urea Nitrogen 21 mg/dL (8-26) 20 mg/dL (8-26) Creatinine 1.1 mg/dL (0.7-1.3) 1.1 mg/dL (0.7-1.3) Estimated GFR (Cockcroft-Gault) 69.0 69.0 BUN/Creatinine Ratio 19 (6-20) 18 (6-20) Glucose Level 127 mg/dL (70-99) 154 mg/dL (70-99) Lactic Acid Level 1.4 mmol/L (0.4-2.0) Calcium Level 9.6 mg/dL (8.5-10.1) 8.7 mg/dL (8.5-10.1) Total Bilirubin 0.7 mg/dL (0.2-1.0) 0.2 mg/dL (0.2-1.0) Aspartate Amino Transf (AST/SGOT) 13 U/L (15-37) 12 U/L (15-37) Alanine Aminotransferase (ALT/SGPT) 20 U/L (16-63) 19 U/L (16-63) Alkaline Phosphatase 76 U/L (46-116) 66 U/L (46-116) Troponin I Quantitative < 0.017 ng/mL (0.000-0.055) CY-Tsw-C-Type Natriuretic Peptide 379 pg/mL (0-124) Total Protein 8.1 g/dL (6.4-8.2) 6.1 g/dL (6.4-8.2) Albumin 3.4 g/dL (3.4-5.0) 2.8 g/dL (3.4-5.0) Albumin/Globulin Ratio 0.7 (1.0-1.7) 0.8 (1.0-1.7) Influenza Type A Antigen Negative (NEGATIVE) Influenza Type B Antigen Negative (NEGATIVE) Laboratory Tests Test 08/25/18 05:35 08/25/18 06:40 Sodium Level 143 mmol/L (136-145) Potassium Level 5.3 mmol/L (3.5-5.1) Chloride Level 103 mmol/L (98-107) Carbon Dioxide Level 35 mmol/L (21-32) Anion Gap 5 (6-14) Blood Urea Nitrogen 20 mg/dL (8-26) Creatinine 1.1 mg/dL (0.7-1.3) Estimated GFR (Cockcroft-Gault) 69.0 BUN/Creatinine Ratio 18 (6-20) Glucose Level 154 mg/dL (70-99) Calcium Level 8.7 mg/dL (8.5-10.1) Total Bilirubin 0.2 mg/dL (0.2-1.0) Aspartate Amino Transf (AST/SGOT) 12 U/L (15-37) Alanine Aminotransferase (ALT/SGPT) 19 U/L (16-63) Alkaline Phosphatase 66 U/L (46-116) Total Protein 6.1 g/dL (6.4-8.2) Albumin 2.8 g/dL (3.4-5.0) Albumin/Globulin Ratio 0.8 (1.0-1.7) White Blood Count 8.4 x10^3/uL (4.0-11.0) Red Blood Count 2.78 x10^6/uL (4.30-5.70) Hemoglobin 8.1 g/dL (13.0-17.5) Hematocrit 25.2 % (39.0-53.0) Mean Corpuscular Volume 91 fL (79-100) Mean Corpuscular Hemoglobin 29 pg (25-35) Mean Corpuscular Hemoglobin Concent 32 g/dL (31-37) Red Cell Distribution Width 17.9 % (11.5-14.5) Platelet Count 20 x10^3/uL (140-400) Neutrophils (%) (Auto) 93 % (31-73) Lymphocytes (%) (Auto) 5 % (24-48) Monocytes (%) (Auto) 1 % (0-9) Eosinophils (%) (Auto) 0 % (0-3) Basophils (%) (Auto) 1 % (0-3) Neutrophils # (Auto) 7.8 x10^3uL (1.8-7.7) Lymphocytes # (Auto) 0.4 x10^3/uL (1.0-4.8) Monocytes # (Auto) 0.1 x10^3/uL (0.0-1.1) Eosinophils # (Auto) 0.0 x10^3/uL (0.0-0.7) Basophils # (Auto) 0.1 x10^3/uL (0.0-0.2) Medications Active Scripts Medications Dose Route/Sig Max Daily Dose Days Date Category Oxycodone Hcl Immed.release (Oxycodone Hcl) 30 Mg Tablet 20 Mg PO Q3HRS PRN 02/09/18 Reported Oxycodone Hcl Immed.release (Oxycodone Hcl) 30 Mg Tablet 1 Tab PO Q4HRS 02/09/18 Reported Vitamin B-12 (Cyanocobalamin (Vitamin B-12)) 1,000 Mcg Tablet 1,000 Mcg PO DAILY 06/20/16 Reported Multivitamins (Multivitamin) 1 Each Tablet 1 Each PO DAILY 04/02/16 Reported Compazine (Prochlorperazine Maleate) 10 Mg Tablet 10 Mg PO Q 6 HRS PRN 10/23/14 Reported Zofran (Ondansetron Hcl) 8 Mg Tablet PO Q 8HRS PRN 10/23/14 Reported Albuterol Sulfate Neb Soln (Albuterol Sulfate) 1.25 Mg/3 Ml Vial.neb 1.25 Mg NEB PRN QID PRN 09/12/14 Reported Miralax (Polyethylene Glycol 3350) 17 Gm Powd.pack 1 Pkt PO PRN DAILY PRN 09/12/14 Reported Testosterone Cypionate 200 Mg/1 Ml Vial 1 Ml IM QMONTH 09/04/14 Reported Trazodone Hcl 150 Mg Tablet 150 Mg PO HS 09/04/14 Reported FENTANYL 100mcg/hr (Fentanyl) 1 Each Patch.td72 2 Patch TP Q3DAYS 09/01/14 Reported Potassium Chloride 20 Meq Tab.er.prt 20 Meq PO DAILY 09/01/14 Reported Atorvastatin Calcium 10 Mg Tablet 1 Tab PO DAILY 09/01/14 Reported Tamsulosin Hcl 0.4 Mg Cap.er.24h 1 Cap PO HS 09/01/14 Reported Proair Hfa Inhaler (Albuterol Sulfate) 8.5 Gm Hfa.aer.ad 2 Puff IH PRN Q2HR PRN 09/01/14 Reported Impression . IMPRESSION: 1. Acute on chronic respiratory failure, multifactorial. 2. Acute exacerbation of chronic obstructive pulmonary disease. 3. Acute nonspecific bronchitis. 4. Abnormal CT revealing possible lymphangitic spread. 5. History of small lung cancer diagnosed in 08/13/2018, undergoing chemotherapy. 6. Tobacco dependence. Plan . stressed the importance of dc smoking up to chair pt 1. Continue current IV steroids and antibiotics. 2. Oxygen supplementation. 3. The patient instructed on the importance of discontinuing tobacco use. 4. DVT prophylaxis. ROSAURA MONTALVO MD Aug 25, 2018 09:37
[2018-08-25 11:00] VITALS: BP 109/67
[2018-08-25 12:18] LABS: BASO % 0 % (0-3); EOS % 0 % (0-3); HEMATOCRIT 22.8 % (39.0-53.0); HEMOGLOBIN 7.5 g/dL (13.0-17.5); LYMPH # 0.3 x10^3/uL (1.0-4.8); LYMPH % 4 % (24-48); MEAN CORPUSCULAR HEMOGLOBIN 30 pg (25-35); MEAN CORPUSCULAR HGB CONC 33 g/dL (31-37); MEAN CORPUSCULAR VOLUME 91 fL (79-100); MONO # 0.1 x10^3/uL (0.0-1.1); MONO % 2 % (0-9); NEUT # 6.9 x10^3uL (1.8-7.7); NEUT % 94 % (31-73); RED CELL DISTRIBUTION WIDTH 18.3 % (11.5-14.5); WHITE BLOOD COUNT 7.4 x10^3/uL (4.0-11.0)
[2018-08-25 12:23] LABS: PLATELET COUNT 22 x10^3/uL (140-400)
[2018-08-25 15:00] VITALS: BP 106/66
[2018-08-25 20:00] VITALS: BP 116/68
[2018-08-25] MEDS: traZODone 50 MG TABLET. PO SCH (20:37)
[2018-08-25] MEDS: TAMSULOSIN 0.4 MG CAP.ER.24H. PO SCH (20:37)
[2018-08-25] MEDS: AZITHROMYCIN 500 MG in IV NORMAL SALINE 250ML 250 ML IV SCH (20:37)
[2018-08-25] MEDS: ATORVASTATIN CALCIUM 10 MG TABLET. PO SCH (20:37)
[2018-08-25] MEDS: cefTRIAXone IV Push 1 GM VIAL. IVP SCH (22:06)
[2018-08-25 23:05] VITALS: BP 99/64
[2018-08-25 23:10] LABS: HEMOGLOBIN A1C 5.3 % (4.8-5.6)
[2018-08-25] MEDS: ALBUTEROL SULFATE 2.5 MG/3 ML NEBU. NEB PRN (23:13)
[2018-08-26] VITALS (10 sets, daily range): BP systolic 93–118; BP diastolic 57–69
[2018-08-26] MEDS ORDERED: fentaNYL 100MCG/HR PATCH 1 PATCH PATCH TD SCH (05:00)
[2018-08-26] MEDS: ALBUTEROL SULFATE 2.5 MG/3 ML NEBU. NEB PRN ×2 (05:13→13:05)
[2018-08-26 06:21] LABS: CALCIUM 8.7 mg/dL (8.5-10.1); CREATININE 1.1 mg/dL (0.7-1.3); POTASSIUM 4.3 mmol/L (3.5-5.1)
[2018-08-26 06:43] LABS: RED BLOOD COUNT 2.27 x10^6/uL (4.30-5.70); RED CELL DISTRIBUTION WIDTH 18.2 % (11.5-14.5); WHITE BLOOD COUNT 7.6 x10^3/uL (4.0-11.0)
[2018-08-26 06:45] LABS: HEMATOCRIT 20.3 % (39.0-53.0); HEMOGLOBIN 6.8 g/dL (13.0-17.5)
[2018-08-26] MEDS: IPRATRPIUM/ALBUTEROL 0.5/2.5MG 3 ML NEBU. NEB SCH ×4 (07:47→21:22)
[2018-08-26] MEDS: MULTIVITAMIN with MINERAL TABLET. PO SCH (09:16)
[2018-08-26] MEDS: CYANOCOBALAMIN (VITAMIN B-12) 1,000 MCG TABLET. PO SCH (09:16)
[2018-08-26] MEDS: POTASSIUM CHLORIDE 20 MEQ TABLET.ER. PO SCH (09:16)
[2018-08-26] MEDS: methylPREDNISolone SOD SUCC PF 125 MG/2 ML VIAL. IV SCH ×2 (09:17→21:56)
[2018-08-26] MEDS: guaiFENesin DM 200MG/20MG 10 ML SYRUP PO PRN ×2 (09:17→18:28)
--- NOTE | 2018-08-26 09:22 | PDOC ---
PULMONARY PROGRESS NOTES Subjective PT LESS SOA AND WHEEZE Vitals Vital Signs Date Time Temp Pulse Resp B/P (MAP) Pulse Ox O2 Delivery O2 Flow Rate FiO2 08/26/18 07:48 96 Nasal Cannula 3.0 08/26/18 07:05 97.8 91 17 110/64 (79) 97.8 ROS: No Nausea, No Chest Pain, No Abdominal Pain, No Increase Cough General: Alert Lungs: Wheezing Cardiovascular: S1, S2 Abdomen: Soft Neuro Exam: Alert Extremities: No Edema Skin: Warm Labs Laboratory Tests Test 08/25/18 05:35 08/25/18 06:40 08/25/18 12:05 08/26/18 05:40 Sodium Level 143 mmol/L (136-145) 142 mmol/L (136-145) Potassium Level 5.3 mmol/L (3.5-5.1) 4.3 mmol/L (3.5-5.1) Chloride Level 103 mmol/L (98-107) 102 mmol/L (98-107) Carbon Dioxide Level 35 mmol/L (21-32) 36 mmol/L (21-32) Anion Gap 5 (6-14) 4 (6-14) Blood Urea Nitrogen 20 mg/dL (8-26) 24 mg/dL (8-26) Creatinine 1.1 mg/dL (0.7-1.3) 1.1 mg/dL (0.7-1.3) Estimated GFR (Cockcroft-Gault) 69.0 69.0 BUN/Creatinine Ratio 18 (6-20) Glucose Level 154 mg/dL (70-99) 169 mg/dL (70-99) Calcium Level 8.7 mg/dL (8.5-10.1) 8.7 mg/dL (8.5-10.1) Total Bilirubin 0.2 mg/dL (0.2-1.0) Aspartate Amino Transf (AST/SGOT) 12 U/L (15-37) Alanine Aminotransferase (ALT/SGPT) 19 U/L (16-63) Alkaline Phosphatase 66 U/L (46-116) Total Protein 6.1 g/dL (6.4-8.2) Albumin 2.8 g/dL (3.4-5.0) Albumin/Globulin Ratio 0.8 (1.0-1.7) White Blood Count 8.4 x10^3/uL (4.0-11.0) 7.4 x10^3/uL (4.0-11.0) 7.6 x10^3/uL (4.0-11.0) Red Blood Count 2.78 x10^6/uL (4.30-5.70) 2.50 x10^6/uL (4.30-5.70) 2.27 x10^6/uL (4.30-5.70) Hemoglobin 8.1 g/dL (13.0-17.5) 7.5 g/dL (13.0-17.5) 6.8 g/dL (13.0-17.5) Hematocrit 25.2 % (39.0-53.0) 22.8 % (39.0-53.0) 20.3 % (39.0-53.0) Mean Corpuscular Volume 91 fL (79-100) 91 fL (79-100) 89 fL (79-100) Mean Corpuscular Hemoglobin 29 pg (25-35) 30 pg (25-35) 30 pg (25-35) Mean Corpuscular Hemoglobin Concent 32 g/dL (31-37) 33 g/dL (31-37) 34 g/dL (31-37) Red Cell Distribution Width 17.9 % (11.5-14.5) 18.3 % (11.5-14.5) 18.2 % (11.5-14.5) Platelet Count 20 x10^3/uL (140-400) 22 x10^3/uL (140-400) 31 x10^3/uL (140-400) Neutrophils (%) (Auto) 93 % (31-73) 94 % (31-73) Lymphocytes (%) (Auto) 5 % (24-48) 4 % (24-48) Monocytes (%) (Auto) 1 % (0-9) 2 % (0-9) Eosinophils (%) (Auto) 0 % (0-3) 0 % (0-3) Basophils (%) (Auto) 1 % (0-3) 0 % (0-3) Neutrophils # (Auto) 7.8 x10^3uL (1.8-7.7) 6.9 x10^3uL (1.8-7.7) Lymphocytes # (Auto) 0.4 x10^3/uL (1.0-4.8) 0.3 x10^3/uL (1.0-4.8) Monocytes # (Auto) 0.1 x10^3/uL (0.0-1.1) 0.1 x10^3/uL (0.0-1.1) Eosinophils # (Auto) 0.0 x10^3/uL (0.0-0.7) 0.0 x10^3/uL (0.0-0.7) Basophils # (Auto) 0.1 x10^3/uL (0.0-0.2) 0.0 x10^3/uL (0.0-0.2) Hemoglobin A1c 5.3 % (4.8-5.6) Laboratory Tests Test 08/25/18 12:05 08/26/18 05:40 White Blood Count 7.4 x10^3/uL (4.0-11.0) 7.6 x10^3/uL (4.0-11.0) Red Blood Count 2.50 x10^6/uL (4.30-5.70) 2.27 x10^6/uL (4.30-5.70) Hemoglobin 7.5 g/dL (13.0-17.5) 6.8 g/dL (13.0-17.5) Hematocrit 22.8 % (39.0-53.0) 20.3 % (39.0-53.0) Mean Corpuscular Volume 91 fL (79-100) 89 fL (79-100) Mean Corpuscular Hemoglobin 30 pg (25-35) 30 pg (25-35) Mean Corpuscular Hemoglobin Concent 33 g/dL (31-37) 34 g/dL (31-37) Red Cell Distribution Width 18.3 % (11.5-14.5) 18.2 % (11.5-14.5) Platelet Count 22 x10^3/uL (140-400) 31 x10^3/uL (140-400) Neutrophils (%) (Auto) 94 % (31-73) Lymphocytes (%) (Auto) 4 % (24-48) Monocytes (%) (Auto) 2 % (0-9) Eosinophils (%) (Auto) 0 % (0-3) Basophils (%) (Auto) 0 % (0-3) Neutrophils # (Auto) 6.9 x10^3uL (1.8-7.7) Lymphocytes # (Auto) 0.3 x10^3/uL (1.0-4.8) Monocytes # (Auto) 0.1 x10^3/uL (0.0-1.1) Eosinophils # (Auto) 0.0 x10^3/uL (0.0-0.7) Basophils # (Auto) 0.0 x10^3/uL (0.0-0.2) Sodium Level 142 mmol/L (136-145) Potassium Level 4.3 mmol/L (3.5-5.1) Chloride Level 102 mmol/L (98-107) Carbon Dioxide Level 36 mmol/L (21-32) Anion Gap 4 (6-14) Blood Urea Nitrogen 24 mg/dL (8-26) Creatinine 1.1 mg/dL (0.7-1.3) Estimated GFR (Cockcroft-Gault) 69.0 Glucose Level 169 mg/dL (70-99) Calcium Level 8.7 mg/dL (8.5-10.1) Medications Active Scripts Medications Dose Route/Sig Max Daily Dose Days Date Category Oxycodone Hcl Immed.release (Oxycodone Hcl) 30 Mg Tablet 20 Mg PO Q3HRS PRN 02/09/18 Reported Oxycodone Hcl Immed.release (Oxycodone Hcl) 30 Mg Tablet 1 Tab PO Q4HRS 02/09/18 Reported Vitamin B-12 (Cyanocobalamin (Vitamin B-12)) 1,000 Mcg Tablet 1,000 Mcg PO DAILY 06/20/16 Reported Multivitamins (Multivitamin) 1 Each Tablet 1 Each PO DAILY 04/02/16 Reported Compazine (Prochlorperazine Maleate) 10 Mg Tablet 10 Mg PO Q 6 HRS PRN 10/23/14 Reported Zofran (Ondansetron Hcl) 8 Mg Tablet PO Q 8HRS PRN 10/23/14 Reported Albuterol Sulfate Neb Soln (Albuterol Sulfate) 1.25 Mg/3 Ml Vial.neb 1.25 Mg NEB PRN QID PRN 09/12/14 Reported Miralax (Polyethylene Glycol 3350) 17 Gm Powd.pack 1 Pkt PO PRN DAILY PRN 09/12/14 Reported Testosterone Cypionate 200 Mg/1 Ml Vial 1 Ml IM QMONTH 09/04/14 Reported Trazodone Hcl 150 Mg Tablet 150 Mg PO HS 09/04/14 Reported FENTANYL 100mcg/hr (Fentanyl) 1 Each Patch.td72 2 Patch TP Q3DAYS 09/01/14 Reported Potassium Chloride 20 Meq Tab.er.prt 20 Meq PO DAILY 09/01/14 Reported Atorvastatin Calcium 10 Mg Tablet 1 Tab PO DAILY 09/01/14 Reported Tamsulosin Hcl 0.4 Mg Cap.er.24h 1 Cap PO HS 09/01/14 Reported Proair Hfa Inhaler (Albuterol Sulfate) 8.5 Gm Hfa.aer.ad 2 Puff IH PRN Q2HR PRN 09/01/14 Reported Impression . IMPRESSION: 1. Acute on chronic respiratory failure, multifactorial. 2. Acute exacerbation of chronic obstructive pulmonary disease. 3. Acute nonspecific bronchitis. 4. Abnormal CT revealing possible lymphangitic spread. 5. History of small lung cancer diagnosed in 08/13/2018, undergoing chemotherapy. 6. Tobacco dependence. Plan . ok to d/c in am will change to po med follow up in office in [place] Farr MD Aug 26, 2018 09:22
--- NOTE | 2018-08-26 12:09 | PDOC ---
PROGRESS NOTES Subjective Still coughing up phlegm with some wheezing, no fever, now has a sore throat. Anemic and has blood transfusion ordered. Back hurts from coughing, no diarrhea , no rash Objective Afebrile General: NAD but coughing, A&O Heart: RRR Lungs: coarse with cough and end expiratory wheezing Abd: soft and non tender Ext: no C/C/E WBC: 7.6 Hgb: 6.8 K+: 4.3 Creat: 1.1 Vital Signs Vital Signs Date Time Temp Pulse Resp B/P (MAP) Pulse Ox O2 Delivery O2 Flow Rate FiO2 08/26/18 11:35 Nasal Cannula 3.0 08/26/18 10:32 98.2 100 18 101/60 (74) 97 98.2 I & O Intake and Output 08/26/18 07:01 Intake Total 950 ml Output Total 600 ml Balance 350 ml Intake Oral 950 ml Output Urine Total 600 ml Assessment and Plan Pneumonia/ COPD acute exacerbation - continue antibiotics, neb tx, steroids, add Cepacol lozenges for sore throat acute respiratory failure on chronic respiratory failure - continue O2 lung cancer - Dr. Cardenas/Guero following anemia/thrombocytopenia - to be transfused Caitlyn ELLIOTT MD Aug 26, 2018 12:09
[2018-08-26] MEDS ORDERED: BENZOCAINE/MENTHOL LOZENGE. PO PRN (12:15)
--- NOTE | 2018-08-26 12:23 | PDOC ---
PROGRESS NOTES Subjective Subjective HPI - f/u of Recurrent small cell lung ca, ROS - dyspnea better Objective Objective Vital Signs Date Time Temp Pulse Resp B/P (MAP) Pulse Ox O2 Delivery O2 Flow Rate FiO2 08/26/18 11:35 Nasal Cannula 3.0 08/26/18 10:32 98.2 100 18 101/60 (74) 97 98.2 Intake and Output 08/26/18 07:01 Intake Total 950 ml Output Total 600 ml Balance 350 ml Intake Oral 950 ml Output Urine Total 600 ml Physical Exam Heart: Normal S1, Normal S2 General: Alert, Oriented X3 Lungs: Clear to auscultation Neuro: Normal speech Psych/Mental Status: Mental status NL Assessment Assessment Problems Medical Problems: (1) Chest pain Status: Acute (2) Pneumonia Status: Acute (3) Shortness of breath Status: Acute 1. Recurrent small cell lung ca, currently on palliative chemotherapy, who completed day 5 of cycle 26 on 13 August, he received Aranesp on 13 August and Neulasta on 16 August, he is admitted with acute exacerbation of COPD and improving thus far. Chemotherapy on hold during current admit, follow-up CT scans will be due after cycle 28 unless needed sooner, he does continue Neulasta and Aranesp through the clinic, and will follow-up with me upon discharge. He does have medications for nausea and constipation and pain as needed as well as chronic pain medications. 2. COPD: Appreciate pulmonary input, on antibiotics and steroids, and oxygen 3. Thrombocytopenia: Related to chemotherapy, Improving, 4. Anemia - hb worse at 6.8 on 08/26/18, ordered 1 PRBC tx. Comment Review of Relevant I have reviewed the following items madhav (where applicable) has been applied. Labs Laboratory Tests Test 08/25/18 05:35 08/25/18 06:40 08/25/18 12:05 08/26/18 05:40 Sodium Level 143 mmol/L (136-145) 142 mmol/L (136-145) Potassium Level 5.3 mmol/L (3.5-5.1) 4.3 mmol/L (3.5-5.1) Chloride Level 103 mmol/L (98-107) 102 mmol/L (98-107) Carbon Dioxide Level 35 mmol/L (21-32) 36 mmol/L (21-32) Anion Gap 5 (6-14) 4 (6-14) Blood Urea Nitrogen 20 mg/dL (8-26) 24 mg/dL (8-26) Creatinine 1.1 mg/dL (0.7-1.3) 1.1 mg/dL (0.7-1.3) Estimated GFR (Cockcroft-Gault) 69.0 69.0 BUN/Creatinine Ratio 18 (6-20) Glucose Level 154 mg/dL (70-99) 169 mg/dL (70-99) Calcium Level 8.7 mg/dL (8.5-10.1) 8.7 mg/dL (8.5-10.1) Total Bilirubin 0.2 mg/dL (0.2-1.0) Aspartate Amino Transf (AST/SGOT) 12 U/L (15-37) Alanine Aminotransferase (ALT/SGPT) 19 U/L (16-63) Alkaline Phosphatase 66 U/L (46-116) Total Protein 6.1 g/dL (6.4-8.2) Albumin 2.8 g/dL (3.4-5.0) Albumin/Globulin Ratio 0.8 (1.0-1.7) White Blood Count 8.4 x10^3/uL (4.0-11.0) 7.4 x10^3/uL (4.0-11.0) 7.6 x10^3/uL (4.0-11.0) Red Blood Count 2.78 x10^6/uL (4.30-5.70) 2.50 x10^6/uL (4.30-5.70) 2.27 x10^6/uL (4.30-5.70) Hemoglobin 8.1 g/dL (13.0-17.5) 7.5 g/dL (13.0-17.5) 6.8 g/dL (13.0-17.5) Hematocrit 25.2 % (39.0-53.0) 22.8 % (39.0-53.0) 20.3 % (39.0-53.0) Mean Corpuscular Volume 91 fL (79-100) 91 fL (79-100) 89 fL (79-100) Mean Corpuscular Hemoglobin 29 pg (25-35) 30 pg (25-35) 30 pg (25-35) Mean Corpuscular Hemoglobin Concent 32 g/dL (31-37) 33 g/dL (31-37) 34 g/dL (31-37) Red Cell Distribution Width 17.9 % (11.5-14.5) 18.3 % (11.5-14.5) 18.2 % (11.5-14.5) Platelet Count 20 x10^3/uL (140-400) 22 x10^3/uL (140-400) 31 x10^3/uL (140-400) Neutrophils (%) (Auto) 93 % (31-73) 94 % (31-73) Lymphocytes (%) (Auto) 5 % (24-48) 4 % (24-48) Monocytes (%) (Auto) 1 % (0-9) 2 % (0-9) Eosinophils (%) (Auto) 0 % (0-3) 0 % (0-3) Basophils (%) (Auto) 1 % (0-3) 0 % (0-3) Neutrophils # (Auto) 7.8 x10^3uL (1.8-7.7) 6.9 x10^3uL (1.8-7.7) Lymphocytes # (Auto) 0.4 x10^3/uL (1.0-4.8) 0.3 x10^3/uL (1.0-4.8) Monocytes # (Auto) 0.1 x10^3/uL (0.0-1.1) 0.1 x10^3/uL (0.0-1.1) Eosinophils # (Auto) 0.0 x10^3/uL (0.0-0.7) 0.0 x10^3/uL (0.0-0.7) Basophils # (Auto) 0.1 x10^3/uL (0.0-0.2) 0.0 x10^3/uL (0.0-0.2) Hemoglobin A1c 5.3 % (4.8-5.6) Laboratory Tests Test 08/26/18 05:40 White Blood Count 7.6 x10^3/uL (4.0-11.0) Red Blood Count 2.27 x10^6/uL (4.30-5.70) Hemoglobin 6.8 g/dL (13.0-17.5) Hematocrit 20.3 % (39.0-53.0) Mean Corpuscular Volume 89 fL (79-100) Mean Corpuscular Hemoglobin 30 pg (25-35) Mean Corpuscular Hemoglobin Concent 34 g/dL (31-37) Red Cell Distribution Width 18.2 % (11.5-14.5) Platelet Count 31 x10^3/uL (140-400) Sodium Level 142 mmol/L (136-145) Potassium Level 4.3 mmol/L (3.5-5.1) Chloride Level 102 mmol/L (98-107) Carbon Dioxide Level 36 mmol/L (21-32) Anion Gap 4 (6-14) Blood Urea Nitrogen 24 mg/dL (8-26) Creatinine 1.1 mg/dL (0.7-1.3) Estimated GFR (Cockcroft-Gault) 69.0 Glucose Level 169 mg/dL (70-99) Calcium Level 8.7 mg/dL (8.5-10.1) Microbiology 08/24/18 Blood Culture - Preliminary, Resulted NO GROWTH AFTER 2 DAYS Medications Current Medications Ipratropium [place] (Atrovent) 0.5 mg 1X ONCE NEB Last administered on at 23:12; Start 08/23/18 at 23:30; Stop 08/23/18 at 23:31; Status DC Sodium Chloride 500 ml @ 500 mls/hr 1X ONCE IV Last administered on at 23:26; Start 08/23/18 at 23:30; Stop 08/24/18 at 00:29; Status DC Albuterol Sulfate (Ventolin Neb Soln) 2.5 mg 1X ONCE NEB Last administered on 08/23/18at 23:11; Start 08/23/18 at 23:30; Stop 08/23/18 at 23:31; Status DC Iohexol (Omnipaque 300 Mg/ml) 100 ml 1X ONCE IV Last administered on at 23:59; Start 08/24/18 at 00:00; Stop 08/24/18 at 00:01; Status DC Info (CONTRAST GIVEN -- Rx MONITORING) 1 each PRN DAILY PRN MC SEE COMMENTS; Start 08/23/18 at 23:45; Stop 08/25/18 at 23:44; Status DC Albuterol/ Ipratropium (Duoneb) 3 ml 1X ONCE NEB Last administered on at 00:30; Start 08/24/18 at 00:45; Stop 08/24/18 at 00:46; Status DC Ceftriaxone Sodium (Rocephin) 1 gm 1X ONCE IVP Last administered on at 01:57; Start 08/24/18 at 01:30; Stop 08/24/18 at 01:31; Status DC Azithromycin 250 ml @ 250 mls/hr 1X ONCE IV Last administered on 08/24/18at 02:03; Start 08/24/18 at 01:30; Stop 08/24/18 at 02:29; Status DC Ondansetron HCl (Zofran) 4 mg PRN Q8HRS PRN IV NAUSEA/VOMITING 1ST CHOICE; Start 08/24/18 at 01:15; Stop 08/24/18 at 09:05; Status DC Acetaminophen (Tylenol) 650 mg PRN Q4HRS PRN PO FEVER Last administered on at 21:58; Start 08/24/18 at 01:15; Stop 08/25/18 at 01:14; Status DC Albuterol/ Ipratropium (Duoneb) 3 ml RTQID NEB Last administered on 08/25/18at 06:50; Start 08/24/18 at 08:00; Stop 08/25/18 at 07:51; Status DC Oxycodone HCl (Roxicodone) 20 mg PRN Q3HRS PRN PO SEVERE PAIN Last administered on 08/24/18at 06:26; Start 08/24/18 at 03:15 Albuterol Sulfate (Ventolin Neb Soln) 2.5 mg PRN QID PRN NEB SHORTNESS OF BREATH Last administered on 08/24/18at 03:59; Start 08/24/18 at 03:30; Stop at 05:47; Status DC Guaifenesin (Robitussin Dm) 10 ml PRN Q6HRS PRN PO COUGH 1ST CHOICE Last administered on 08/26/18at 09:17; Start 08/24/18 at 03:15 Albuterol Sulfate (Ventolin Neb Soln) 2.5 mg PRN Q2HRS PRN NEB SHORTNESS OF BREATH; Start 08/24/18 at 06:00; Stop 08/24/18 at 08:59; Status DC Albuterol Sulfate (Ventolin Neb Soln) 0.083 mg PRN Q2HR PRN NEB SHORTNESS OF BREATH; Start 08/24/18 at 09:00; Stop 08/25/18 at 12:48; Status DC Atorvastatin Calcium (Lipitor) 10 mg QHS PO Last administered on 08/25/18at 20: 37; Start 08/24/18 at 21:00 Cyanocobalamin (Vitamin B-12) 1,000 mcg DAILY PO Last administered on 09:16; Start 08/24/18 at 09:00 Oxycodone HCl (Roxicodone) 30 mg Q4HRS PO Last administered on 08/24/18at 18:08 ; Start 08/24/18 at 09:00; Stop 08/24/18 at 19:35; Status DC Potassium Chloride (Klor-Con) 20 meq DAILY PO Last administered on 08/26/18at 09:16; Start 08/24/18 at 09:00 Tamsulosin HCl (Flomax) 0.4 mg HS PO Last administered on 08/25/18 20:37; Start 08/24/18 at 21:00 Fentanyl (Duragesic 100mcg/Hr Patch) 2 patch Q3DAYS TD Last administered on at 10:26; Start 08/24/18 at 10:00; Stop 08/24/18 at 15:09; Status DC Multivitamins (Thera M Plus) 1 tab DAILY PO Last administered on 08/26/18at 09: 16; Start 08/24/18 at 09:00 Polyethylene Glycol (miraLAX PACKET) 17 gm PRN DAILY PRN PO CONSTIPATION; Start 08/25/18 at 09:00 Prochlorperazine Maleate (Compazine) 10 mg PRN Q6HRS PRN PO NAUSEA/VOMITING; Start 08/24/18 at 09:15 Trazodone HCl (Desyrel) 150 mg QHS PO Last administered on 08/25/18at 20:37; Start 08/24/18 at 21:00 Ondansetron HCl (Zofran) 4 mg PRN Q6HRS PRN IV NAUSEA/VOMITING; Start at 09:00 Enoxaparin Sodium (Lovenox 40mg Syringe) 40 mg Q24H SQ ; Start 08/24/18 at 10: 00; Stop 08/24/18 at 15:02; Status DC Fentanyl (Duragesic 100mcg/Hr Patch) 1 patch Q3DAYS TD ; Start 08/27/18 at 09: 00; Stop 08/27/18 at 09:00; Status DC Ceftriaxone Sodium (Rocephin) 1 gm Q24H IVP Last administered on 08/25/18at 22: 06; Start 08/24/18 at 22:00 Azithromycin 500 mg/Sodium Chloride 250 ml @ 250 mls/hr Q24H IV Last administered on 08/25/18at 20:37; Start 08/24/18 at 21:00 Methylprednisolone Sodium Succinate (SOLU-Medrol 125MG VIAL) 60 mg Q12HR IV Last administered on 08/26/18at 09:17; Start 08/24/18 at 21:00 Oxycodone HCl (Roxicodone) 30 mg Q4H PO Last administered on 08/26/18at 10:11; Start 08/24/18 at 22:00 Albuterol/ Ipratropium (Duoneb) 3 ml RTQID NEB Last administered on 08/26/18at 11:35; Start 08/25/18 at 08:00 Albuterol Sulfate (Ventolin Neb Soln) 2.5 mg PRN Q2HR PRN NEB SHORTNESS OF BREATH Last administered on 08/26/18at 05:13; Start 08/25/18 at 12:48 Fentanyl (Duragesic 100mcg/Hr Patch) 1 patch Q3DAYS TD ; Start 08/26/18 at 05: 00; Status Cancel Fentanyl (Duragesic 100mcg/Hr Patch) 1 patch Q3DAYS TD ; Start 08/27/18 at 09: 00 Throat Lozenges (Cepacol Sore Throat Lozenge) 1 scott PRN Q2HRS PRN PO SORE THROAT; Start 08/26/18 at 12:15 Active Scripts Active Reported Oxycodone Hcl Immed.release (Oxycodone Hcl) 30 Mg Tablet 20 Mg PO Q3HRS PRN Oxycodone Hcl Immed.release (Oxycodone Hcl) 30 Mg Tablet 1 Tab PO Q4HRS Vitamin B-12 (Cyanocobalamin (Vitamin B-12)) 1,000 Mcg Tablet 1,000 Mcg PO DAILY Multivitamins (Multivitamin) 1 Each Tablet 1 Each PO DAILY Compazine (Prochlorperazine Maleate) 10 Mg Tablet 10 Mg PO Q 6 HRS PRN Zofran (Ondansetron Hcl) 8 Mg Tablet PO Q 8HRS PRN Albuterol Sulfate Neb Soln (Albuterol Sulfate) 1.25 Mg/3 Ml Vial.neb 1.25 Mg NEB PRN QID PRN Miralax (Polyethylene Glycol 3350) 17 Gm Powd.pack 1 Pkt PO PRN DAILY PRN Testosterone Cypionate 200 Mg/1 Ml Vial 1 Ml IM QMONTH Trazodone Hcl 150 Mg Tablet 150 Mg PO HS FENTANYL 100mcg/hr (Fentanyl) 1 Each Patch.td72 2 Patch TP Q3DAYS Potassium Chloride 20 Meq Tab.er.prt 20 Meq PO DAILY Atorvastatin Calcium 10 Mg Tablet 1 Tab PO DAILY Tamsulosin Hcl 0.4 Mg Cap.er.24h 1 Cap PO HS Proair Hfa Inhaler (Albuterol Sulfate) 8.5 Gm Hfa.aer.ad 2 Puff IH PRN Q2HR PRN Vitals/I & O Vital Sign - Last 24 Hours 08/25/18 08/25/18 08/25/18 08/25/18 14:17 15:00 15:01 15:20 Temp 98.3 98.3 Pulse 105 Resp 18 20 16 B/P (MAP) 106/66 (79) Pulse Ox 98 94 94 O2 Delivery Nasal Cannula Nasal Cannula Nasal Cannula O2 Flow Rate 3.0 4.0 2.0 08/25/18 08/25/18 08/25/18 08/25/18 18:21 19:58 20:00 20:15 Temp 98.2 98.2 Pulse 88 Resp 18 16 B/P (MAP) 116/68 (84) Pulse Ox 94 99 97 O2 Delivery Nasal Cannula Nasal Cannula Nasal Cannula Nasal Cannula O2 Flow Rate 3.0 3.0 2.0 2.0 08/25/18 08/25/18 08/26/18 08/26/18 23:05 23:12 03:53 05:13 Temp 98.0 98.7 98.0 98.7 Pulse 102 90 Resp 16 16 B/P (MAP) 99/64 (76) 102/64 (77) Pulse Ox 97 99 99 97 O2 Delivery Nasal Cannula Nasal Cannula Nasal Cannula Nasal Cannula O2 Flow Rate 2.0 4.0 4.0 3.0 08/26/18 08/26/18 08/26/18 08/26/18 06:00 07:05 07:10 07:48 Temp 97.8 97.8 Pulse 91 Resp 17 B/P (MAP) 110/64 (79) Pulse Ox 97 96 O2 Delivery Nasal Cannula Nasal Cannula Nasal Cannula Nasal Cannula O2 Flow Rate 3.0 4.0 3.0 3.0 08/26/18 08/26/18 08/26/18 08/26/18 08:00 10:11 10:32 11:35 Temp 98.2 98.2 Pulse 100 Resp 16 18 B/P (MAP) 101/60 (74) Pulse Ox 96 97 O2 Delivery Nasal Cannula Nasal Cannula Nasal Cannula Nasal Cannula O2 Flow Rate 3.0 3.0 4.0 3.0 Intake and Output 08/25/18 08/25/18 08/26/18 15:01 23:01 07:01 Intake Total 440 ml 310 ml 200 ml Output Total 0 ml 600 ml Balance 440 ml 310 ml -400 ml DOMINGO STARR MD Aug 26, 2018 12:23
[2018-08-26] MEDS: ATORVASTATIN CALCIUM 10 MG TABLET. PO SCH (21:53)
[2018-08-26] MEDS: AMOXICILLIN/K CLAV 875/125MG TABLET. PO SCH (21:53)
[2018-08-26] MEDS: TAMSULOSIN 0.4 MG CAP.ER.24H. PO SCH (21:53)
[2018-08-26] MEDS: traZODone 50 MG TABLET. PO SCH (21:54)
[2018-08-27 03:00] VITALS: BP 107/61
[2018-08-27 07:11] LABS: ALBUMIN 2.3 g/dL (3.4-5.0); ALBUMIN/GLOBULIN RATIO 0.7 (1.0-1.7); CALCIUM 8.4 mg/dL (8.5-10.1); CREATININE 1.3 mg/dL (0.7-1.3); GFR 56.9; POTASSIUM 4.7 mmol/L (3.5-5.1); TOTAL BILIRUBIN 0.3 mg/dL (0.2-1.0); TOTAL PROTEIN 5.7 g/dL (6.4-8.2)
[2018-08-27 07:15] VITALS: BP 112/70
[2018-08-27 07:21] LABS: BASO % 0 % (0-3); EOS % 0 % (0-3); HEMATOCRIT 23.6 % (39.0-53.0); HEMOGLOBIN 7.9 g/dL (13.0-17.5); LYMPH # 0.5 x10^3/uL (1.0-4.8); LYMPH % 5 % (24-48); MEAN CORPUSCULAR HEMOGLOBIN 30 pg (25-35); MEAN CORPUSCULAR HGB CONC 34 g/dL (31-37); MEAN CORPUSCULAR VOLUME 90 fL (79-100); MONO # 0.5 x10^3/uL (0.0-1.1); MONO % 6 % (0-9); NEUT # 8.1 x10^3uL (1.8-7.7); NEUT % 89 % (31-73); PLATELET COUNT 46 x10^3/uL (140-400); RED BLOOD COUNT 2.62 x10^6/uL (4.30-5.70); RED CELL DISTRIBUTION WIDTH 17.9 % (11.5-14.5); WHITE BLOOD COUNT 9.1 x10^3/uL (4.0-11.0)
[2018-08-27] MEDS: IPRATRPIUM/ALBUTEROL 0.5/2.5MG 3 ML NEBU. NEB SCH ×2 (07:42→11:12)
[2018-08-27] MEDS ORDERED: fentaNYL 100MCG/HR PATCH 1 PATCH PATCH TD SCH ×2 (09:00)
[2018-08-27] MEDS: AMOXICILLIN/K CLAV 875/125MG TABLET. PO SCH (09:02)
[2018-08-27] MEDS: POTASSIUM CHLORIDE 20 MEQ TABLET.ER. PO SCH (09:02)
[2018-08-27] MEDS: CYANOCOBALAMIN (VITAMIN B-12) 1,000 MCG TABLET. PO SCH (09:02)
[2018-08-27] MEDS: methylPREDNISolone SOD SUCC PF 125 MG/2 ML VIAL. IV SCH (09:02)
[2018-08-27] MEDS: MULTIVITAMIN with MINERAL TABLET. PO SCH (09:02)
--- NOTE | 2018-08-27 09:44 | PDOC ---
PROGRESS NOTES Subjective Subjective HPI - f/u of SCLC ROS - no CP Objective Objective Vital Signs Date Time Temp Pulse Resp B/P (MAP) Pulse Ox O2 Delivery O2 Flow Rate FiO2 08/27/18 09:04 19 Nasal Cannula 3.0 08/27/18 07:44 99 08/27/18 07:15 97.8 74 112/70 (84) 97.8 Intake and Output 08/27/18 07:01 Intake Total 2220 ml Balance 2220 ml Intake Oral 2220 ml # Voids 1 Physical Exam Heart: Normal S1, Normal S2 General: Alert, Oriented X3, No acute distress Lungs: Clear to auscultation Neuro: Normal speech Psych/Mental Status: Mental status NL Assessment Assessment Problems Medical Problems: (1) Chest pain Status: Acute (2) Pneumonia Status: Acute (3) Shortness of breath Status: Acute Imp/Plan: 1. Recurrent small cell lung ca, currently on palliative chemotherapy, who completed day 5 of cycle 26 on 13 August, he received Aranesp on 13 August and Neulasta on 16 August, he is admitted with acute exacerbation of COPD and improving thus far. Chemotherapy on hold during current admit, follow-up CT scans will be due after cycle 28 unless needed sooner, he does continue Neulasta and Aranesp through the clinic, and will follow-up with me upon discharge. He does have medications for nausea and constipation and pain as needed as well as chronic pain medications. 2. COPD: Appreciate pulmonary input, on antibiotics and steroids, and oxygen 3. Thrombocytopenia: Related to chemotherapy, Improving, 4. Anemia - hb worse at 6.8 on 08/26/18, s/p 1 PRBC tx. Hb better now at 7.9 Comment Review of Relevant I have reviewed the following items madhav (where applicable) has been applied. Labs Laboratory Tests Test 08/25/18 12:05 08/26/18 05:40 08/27/18 06:30 White Blood Count 7.4 x10^3/uL (4.0-11.0) 7.6 x10^3/uL (4.0-11.0) 9.1 x10^3/uL (4.0-11.0) Red Blood Count 2.50 x10^6/uL (4.30-5.70) 2.27 x10^6/uL (4.30-5.70) 2.62 x10^6/uL (4.30-5.70) Hemoglobin 7.5 g/dL (13.0-17.5) 6.8 g/dL (13.0-17.5) 7.9 g/dL (13.0-17.5) Hematocrit 22.8 % (39.0-53.0) 20.3 % (39.0-53.0) 23.6 % (39.0-53.0) Mean Corpuscular Volume 91 fL (79-100) 89 fL (79-100) 90 fL (79-100) Mean Corpuscular Hemoglobin 30 pg (25-35) 30 pg (25-35) 30 pg (25-35) Mean Corpuscular Hemoglobin Concent 33 g/dL (31-37) 34 g/dL (31-37) 34 g/dL (31-37) Red Cell Distribution Width 18.3 % (11.5-14.5) 18.2 % (11.5-14.5) 17.9 % (11.5-14.5) Platelet Count 22 x10^3/uL (140-400) 31 x10^3/uL (140-400) 46 x10^3/uL (140-400) Neutrophils (%) (Auto) 94 % (31-73) 89 % (31-73) Lymphocytes (%) (Auto) 4 % (24-48) 5 % (24-48) Monocytes (%) (Auto) 2 % (0-9) 6 % (0-9) Eosinophils (%) (Auto) 0 % (0-3) 0 % (0-3) Basophils (%) (Auto) 0 % (0-3) 0 % (0-3) Neutrophils # (Auto) 6.9 x10^3uL (1.8-7.7) 8.1 x10^3uL (1.8-7.7) Lymphocytes # (Auto) 0.3 x10^3/uL (1.0-4.8) 0.5 x10^3/uL (1.0-4.8) Monocytes # (Auto) 0.1 x10^3/uL (0.0-1.1) 0.5 x10^3/uL (0.0-1.1) Eosinophils # (Auto) 0.0 x10^3/uL (0.0-0.7) 0.0 x10^3/uL (0.0-0.7) Basophils # (Auto) 0.0 x10^3/uL (0.0-0.2) 0.0 x10^3/uL (0.0-0.2) Sodium Level 142 mmol/L (136-145) 141 mmol/L (136-145) Potassium Level 4.3 mmol/L (3.5-5.1) 4.7 mmol/L (3.5-5.1) Chloride Level 102 mmol/L (98-107) 102 mmol/L (98-107) Carbon Dioxide Level 36 mmol/L (21-32) 37 mmol/L (21-32) Anion Gap 4 (6-14) 2 (6-14) Blood Urea Nitrogen 24 mg/dL (8-26) 24 mg/dL (8-26) Creatinine 1.1 mg/dL (0.7-1.3) 1.3 mg/dL (0.7-1.3) Estimated GFR (Cockcroft-Gault) 69.0 56.9 Glucose Level 169 mg/dL (70-99) 123 mg/dL (70-99) Calcium Level 8.7 mg/dL (8.5-10.1) 8.4 mg/dL (8.5-10.1) BUN/Creatinine Ratio 18 (6-20) Total Bilirubin 0.3 mg/dL (0.2-1.0) Aspartate Amino Transf (AST/SGOT) 15 U/L (15-37) Alanine Aminotransferase (ALT/SGPT) 32 U/L (16-63) Alkaline Phosphatase 52 U/L (46-116) Total Protein 5.7 g/dL (6.4-8.2) Albumin 2.3 g/dL (3.4-5.0) Albumin/Globulin Ratio 0.7 (1.0-1.7) Laboratory Tests Test 08/27/18 06:30 White Blood Count 9.1 x10^3/uL (4.0-11.0) Red Blood Count 2.62 x10^6/uL (4.30-5.70) Hemoglobin 7.9 g/dL (13.0-17.5) Hematocrit 23.6 % (39.0-53.0) Mean Corpuscular Volume 90 fL (79-100) Mean Corpuscular Hemoglobin 30 pg (25-35) Mean Corpuscular Hemoglobin Concent 34 g/dL (31-37) Red Cell Distribution Width 17.9 % (11.5-14.5) Platelet Count 46 x10^3/uL (140-400) Neutrophils (%) (Auto) 89 % (31-73) Lymphocytes (%) (Auto) 5 % (24-48) Monocytes (%) (Auto) 6 % (0-9) Eosinophils (%) (Auto) 0 % (0-3) Basophils (%) (Auto) 0 % (0-3) Neutrophils # (Auto) 8.1 x10^3uL (1.8-7.7) Lymphocytes # (Auto) 0.5 x10^3/uL (1.0-4.8) Monocytes # (Auto) 0.5 x10^3/uL (0.0-1.1) Eosinophils # (Auto) 0.0 x10^3/uL (0.0-0.7) Basophils # (Auto) 0.0 x10^3/uL (0.0-0.2) Sodium Level 141 mmol/L (136-145) Potassium Level 4.7 mmol/L (3.5-5.1) Chloride Level 102 mmol/L (98-107) Carbon Dioxide Level 37 mmol/L (21-32) Anion Gap 2 (6-14) Blood Urea Nitrogen 24 mg/dL (8-26) Creatinine 1.3 mg/dL (0.7-1.3) Estimated GFR (Cockcroft-Gault) 56.9 BUN/Creatinine Ratio 18 (6-20) Glucose Level 123 mg/dL (70-99) Calcium Level 8.4 mg/dL (8.5-10.1) Total Bilirubin 0.3 mg/dL (0.2-1.0) Aspartate Amino Transf (AST/SGOT) 15 U/L (15-37) Alanine Aminotransferase (ALT/SGPT) 32 U/L (16-63) Alkaline Phosphatase 52 U/L (46-116) Total Protein 5.7 g/dL (6.4-8.2) Albumin 2.3 g/dL (3.4-5.0) Albumin/Globulin Ratio 0.7 (1.0-1.7) Microbiology 08/24/18 Blood Culture - Preliminary, Resulted NO GROWTH AFTER 3 DAYS Medications Current Medications Ipratropium [place] (Atrovent) 0.5 mg 1X ONCE NEB Last administered on at 23:12; Start 08/23/18 at 23:30; Stop 08/23/18 at 23:31; Status DC Sodium Chloride 500 ml @ 500 mls/hr 1X ONCE IV Last administered on at 23:26; Start 08/23/18 at 23:30; Stop 08/24/18 at 00:29; Status DC Albuterol Sulfate (Ventolin Neb Soln) 2.5 mg 1X ONCE NEB Last administered on 08/23/18at 23:11; Start 08/23/18 at 23:30; Stop 08/23/18 at 23:31; Status DC Iohexol (Omnipaque 300 Mg/ml) 100 ml 1X ONCE IV Last administered on at 23:59; Start 08/24/18 at 00:00; Stop 08/24/18 at 00:01; Status DC Info (CONTRAST GIVEN -- Rx MONITORING) 1 each PRN DAILY PRN MC SEE COMMENTS; Start 08/23/18 at 23:45; Stop 08/25/18 at 23:44; Status DC Albuterol/ Ipratropium (Duoneb) 3 ml 1X ONCE NEB Last administered on at 00:30; Start 08/24/18 at 00:45; Stop 08/24/18 at 00:46; Status DC Ceftriaxone Sodium (Rocephin) 1 gm 1X ONCE IVP Last administered on at 01:57; Start 08/24/18 at 01:30; Stop 08/24/18 at 01:31; Status DC Azithromycin 250 ml @ 250 mls/hr 1X ONCE IV Last administered on 08/24/18at 02:03; Start 08/24/18 at 01:30; Stop 08/24/18 at 02:29; Status DC Ondansetron HCl (Zofran) 4 mg PRN Q8HRS PRN IV NAUSEA/VOMITING 1ST CHOICE; Start 08/24/18 at 01:15; Stop 08/24/18 at 09:05; Status DC Acetaminophen (Tylenol) 650 mg PRN Q4HRS PRN PO FEVER Last administered on at 21:58; Start 08/24/18 at 01:15; Stop 08/25/18 at 01:14; Status DC Albuterol/ Ipratropium (Duoneb) 3 ml RTQID NEB Last administered on 08/25/18at 06:50; Start 08/24/18 at 08:00; Stop 08/25/18 at 07:51; Status DC Oxycodone HCl (Roxicodone) 20 mg PRN Q3HRS PRN PO SEVERE PAIN Last administered on 08/24/18at 06:26; Start 08/24/18 at 03:15 Albuterol Sulfate (Ventolin Neb Soln) 2.5 mg PRN QID PRN NEB SHORTNESS OF BREATH Last administered on 08/24/18at 03:59; Start 08/24/18 at 03:30; Stop at 05:47; Status DC Guaifenesin (Robitussin Dm) 10 ml PRN Q6HRS PRN PO COUGH 1ST CHOICE Last administered on 08/26/18at 18:28; Start 08/24/18 at 03:15 Albuterol Sulfate (Ventolin Neb Soln) 2.5 mg PRN Q2HRS PRN NEB SHORTNESS OF BREATH; Start 08/24/18 at 06:00; Stop 08/24/18 at 08:59; Status DC Albuterol Sulfate (Ventolin Neb Soln) 0.083 mg PRN Q2HR PRN NEB SHORTNESS OF BREATH; Start 08/24/18 at 09:00; Stop 08/25/18 at 12:48; Status DC Atorvastatin Calcium (Lipitor) 10 mg QHS PO Last administered on 08/26/18at 21: 53; Start 08/24/18 at 21:00 Cyanocobalamin (Vitamin B-12) 1,000 mcg DAILY PO Last administered on at 09:02; Start 08/24/18 at 09:00 Oxycodone HCl (Roxicodone) 30 mg Q4HRS PO Last administered on 08/24/18at 18:08 ; Start 08/24/18 at 09:00; Stop 08/24/18 at 19:35; Status DC Potassium Chloride (Klor-Con) 20 meq DAILY PO Last administered on 08/27/18at 09:02; Start 08/24/18 at 09:00 Tamsulosin HCl (Flomax) 0.4 mg HS PO Last administered on 08/26/18at 21:53; Start 08/24/18 at 21:00 Fentanyl (Duragesic 100mcg/Hr Patch) 2 patch Q3DAYS TD Last administered on at 10:26; Start 08/24/18 at 10:00; Stop 08/24/18 at 15:09; Status DC Multivitamins (Thera M Plus) 1 tab DAILY PO Last administered on 08/27/18at 09: 02; Start 08/24/18 at 09:00 Polyethylene Glycol (miraLAX PACKET) 17 gm PRN DAILY PRN PO CONSTIPATION; Start 08/25/18 at 09:00 Prochlorperazine Maleate (Compazine) 10 mg PRN Q6HRS PRN PO NAUSEA/VOMITING; Start 08/24/18 at 09:15 Trazodone HCl (Desyrel) 150 mg QHS PO Last administered on 08/26/18at 21:54; Start 08/24/18 at 21:00 Ondansetron HCl (Zofran) 4 mg PRN Q6HRS PRN IV NAUSEA/VOMITING; Start at 09:00 Enoxaparin Sodium (Lovenox 40mg Syringe) 40 mg Q24H SQ ; Start 08/24/18 at 10: 00; Stop 08/24/18 at 15:02; Status DC Fentanyl (Duragesic 100mcg/Hr Patch) 1 patch Q3DAYS TD ; Start 08/27/18 at 09: 00; Stop 08/27/18 at 09:00; Status DC Ceftriaxone Sodium (Rocephin) 1 gm Q24H IVP Last administered on 08/25/18at 22: 06; Start 08/24/18 at 22:00; Stop 08/26/18 at 13:58; Status DC Azithromycin 500 mg/Sodium Chloride 250 ml @ 250 mls/hr Q24H IV Last administered on 08/25/18at 20:37; Start 08/24/18 at 21:00; Stop 08/26/18 at 13 :58; Status DC Methylprednisolone Sodium Succinate (SOLU-Medrol 125MG VIAL) 60 mg Q12HR IV Last administered on 08/27/18 09:02; Start 08/24/18 at 21:00 Oxycodone HCl (Roxicodone) 30 mg Q4H PO Last administered on 08/27/18at 06:16; Start 08/24/18 at 22:00 Albuterol/ Ipratropium (Duoneb) 3 ml RTQID NEB Last administered on 08/27/18at 07:42; Start 08/25/18 at 08:00 Albuterol Sulfate (Ventolin Neb Soln) 2.5 mg PRN Q2HR PRN NEB SHORTNESS OF BREATH Last administered on 08/26/18at 13:05; Start 08/25/18 at 12:48 Fentanyl (Duragesic 100mcg/Hr Patch) 1 patch Q3DAYS TD ; Start 08/26/18 at 05: 00; Status Cancel Fentanyl (Duragesic 100mcg/Hr Patch) 1 patch Q3DAYS TD Last administered on at 09:04; Start 08/27/18 at 09:00 Throat Lozenges (Cepacol Sore Throat Lozenge) 1 scott PRN Q2HRS PRN PO SORE THROAT Last administered on 08/26/18at 13:02; Start 08/26/18 at 12:15 Amoxicillin/ Clavulanate Potassium (Augmentin 875/ 125mg) 1 tab BID PO Last administered on 08/27/18at 09:02; Start 08/26/18 at 21:00 Active Scripts Active Reported Oxycodone Hcl Immed.release (Oxycodone Hcl) 30 Mg Tablet 20 Mg PO Q3HRS PRN Oxycodone Hcl Immed.release (Oxycodone Hcl) 30 Mg Tablet 1 Tab PO Q4HRS Vitamin B-12 (Cyanocobalamin (Vitamin B-12)) 1,000 Mcg Tablet 1,000 Mcg PO DAILY Multivitamins (Multivitamin) 1 Each Tablet 1 Each PO DAILY Compazine (Prochlorperazine Maleate) 10 Mg Tablet 10 Mg PO Q 6 HRS PRN Zofran (Ondansetron Hcl) 8 Mg Tablet PO Q 8HRS PRN Albuterol Sulfate Neb Soln (Albuterol Sulfate) 1.25 Mg/3 Ml Vial.neb 1.25 Mg NEB PRN QID PRN Miralax (Polyethylene Glycol 3350) 17 Gm Powd.pack 1 Pkt PO PRN DAILY PRN Testosterone Cypionate 200 Mg/1 Ml Vial 1 Ml IM QMONTH Trazodone Hcl 150 Mg Tablet 150 Mg PO HS FENTANYL 100mcg/hr (Fentanyl) 1 Each Patch.td72 2 Patch TP Q3DAYS Potassium Chloride 20 Meq Tab.er.prt 20 Meq PO DAILY Atorvastatin Calcium 10 Mg Tablet 1 Tab PO DAILY Tamsulosin Hcl 0.4 Mg Cap.er.24h 1 Cap PO HS Proair Hfa Inhaler (Albuterol Sulfate) 8.5 Gm Hfa.aer.ad 2 Puff IH PRN Q2HR PRN Vitals/I & O Vital Sign - Last 24 Hours 08/26/18 08/26/18 08/26/18 08/26/18 10:11 10:32 11:35 13:05 Temp 98.2 98.2 Pulse 100 Resp 16 18 B/P (MAP) 101/60 (74) Pulse Ox 96 97 O2 Delivery Nasal Cannula Nasal Cannula Nasal Cannula Nasal Cannula O2 Flow Rate 3.0 4.0 3.0 3.0 08/26/18 08/26/18 08/26/18 08/26/18 14:21 14:34 15:27 15:42 Temp 98.7 97.8 98.3 98.7 97.8 98.3 Pulse 108 94 89 Resp 18 18 18 18 B/P (MAP) 104/57 (73) 108/66 113/64 Pulse Ox 97 97 O2 Delivery Nasal Cannula Nasal Cannula O2 Flow Rate 4.0 3.0 08/26/18 08/26/18 08/26/18 08/26/18 16:42 16:42 16:52 18:27 Temp 98.1 98.1 98.1 98.1 Pulse 90 90 Resp 18 17 16 B/P (MAP) 118/69 118/69 Pulse Ox 97 O2 Delivery Nasal Cannula Nasal Cannula O2 Flow Rate 3.0 3.0 08/26/18 08/26/18 08/26/18 08/26/18 18:27 19:00 20:00 21:22 Temp 98.0 98.1 98.0 98.1 Pulse 95 92 Resp 18 18 B/P (MAP) 115/67 110/65 (80) Pulse Ox 98 100 O2 Delivery Nasal Cannula Nasal Cannula Nasal Cannula O2 Flow Rate 3.0 3.0 4.0 08/26/18 08/26/18 08/26/18 08/26/18 21:55 22:06 22:56 23:00 Temp 98.1 98.1 Pulse 91 Resp 16 18 B/P (MAP) 93/61 (72) Pulse Ox 100 98 O2 Delivery Nasal Cannula Nasal Cannula Nasal Cannula O2 Flow Rate 3.0 3.0 3.0 3.0 08/27/18 08/27/18 08/27/18 08/27/18 02:56 03:00 03:56 06:16 Temp 98.1 98.1 Pulse 90 Resp 16 18 16 16 B/P (MAP) 107/61 (76) Pulse Ox 98 98 98 98 O2 Delivery Nasal Cannula Nasal Cannula Room Air Nasal Cannula O2 Flow Rate 3.0 3.0 3.0 08/27/18 08/27/18 08/27/18 08/27/18 07:15 07:44 08:00 09:04 Temp 97.8 97.8 Pulse 74 Resp 20 19 B/P (MAP) 112/70 (84) Pulse Ox 97 99 O2 Delivery Nasal Cannula Nasal Cannula Nasal Cannula Nasal Cannula O2 Flow Rate 3.0 3.0 3.0 3.0 Intake and Output 08/26/18 08/26/18 08/27/18 15:01 23:01 07:01 Intake Total 420 ml 1400 ml 400 ml Balance 420 ml 1400 ml 400 ml DOMINGO STARR MD Aug 27, 2018 09:44
[2018-08-27] MEDS ORDERED: AMOX1TAB61 PO (09:59)
--- NOTE | 2018-08-27 10:33 | PDOC ---
PULMONARY PROGRESS NOTES Subjective PT LESS SOA AND WHEEZE Vitals Vital Signs Date Time Temp Pulse Resp B/P (MAP) Pulse Ox O2 Delivery O2 Flow Rate FiO2 08/27/18 09:04 19 Nasal Cannula 3.0 08/27/18 07:44 99 08/27/18 07:15 97.8 74 112/70 (84) 97.8 ROS: No Nausea, No Chest Pain, No Abdominal Pain, No Increase Cough General: Alert Lungs: Wheezing Cardiovascular: S1, S2 Abdomen: Soft Neuro Exam: Alert Extremities: No Edema Skin: Warm Labs Laboratory Tests Test 08/25/18 12:05 08/26/18 05:40 08/27/18 06:30 White Blood Count 7.4 x10^3/uL (4.0-11.0) 7.6 x10^3/uL (4.0-11.0) 9.1 x10^3/uL (4.0-11.0) Red Blood Count 2.50 x10^6/uL (4.30-5.70) 2.27 x10^6/uL (4.30-5.70) 2.62 x10^6/uL (4.30-5.70) Hemoglobin 7.5 g/dL (13.0-17.5) 6.8 g/dL (13.0-17.5) 7.9 g/dL (13.0-17.5) Hematocrit 22.8 % (39.0-53.0) 20.3 % (39.0-53.0) 23.6 % (39.0-53.0) Mean Corpuscular Volume 91 fL (79-100) 89 fL (79-100) 90 fL (79-100) Mean Corpuscular Hemoglobin 30 pg (25-35) 30 pg (25-35) 30 pg (25-35) Mean Corpuscular Hemoglobin Concent 33 g/dL (31-37) 34 g/dL (31-37) 34 g/dL (31-37) Red Cell Distribution Width 18.3 % (11.5-14.5) 18.2 % (11.5-14.5) 17.9 % (11.5-14.5) Platelet Count 22 x10^3/uL (140-400) 31 x10^3/uL (140-400) 46 x10^3/uL (140-400) Neutrophils (%) (Auto) 94 % (31-73) 89 % (31-73) Lymphocytes (%) (Auto) 4 % (24-48) 5 % (24-48) Monocytes (%) (Auto) 2 % (0-9) 6 % (0-9) Eosinophils (%) (Auto) 0 % (0-3) 0 % (0-3) Basophils (%) (Auto) 0 % (0-3) 0 % (0-3) Neutrophils # (Auto) 6.9 x10^3uL (1.8-7.7) 8.1 x10^3uL (1.8-7.7) Lymphocytes # (Auto) 0.3 x10^3/uL (1.0-4.8) 0.5 x10^3/uL (1.0-4.8) Monocytes # (Auto) 0.1 x10^3/uL (0.0-1.1) 0.5 x10^3/uL (0.0-1.1) Eosinophils # (Auto) 0.0 x10^3/uL (0.0-0.7) 0.0 x10^3/uL (0.0-0.7) Basophils # (Auto) 0.0 x10^3/uL (0.0-0.2) 0.0 x10^3/uL (0.0-0.2) Sodium Level 142 mmol/L (136-145) 141 mmol/L (136-145) Potassium Level 4.3 mmol/L (3.5-5.1) 4.7 mmol/L (3.5-5.1) Chloride Level 102 mmol/L (98-107) 102 mmol/L (98-107) Carbon Dioxide Level 36 mmol/L (21-32) 37 mmol/L (21-32) Anion Gap 4 (6-14) 2 (6-14) Blood Urea Nitrogen 24 mg/dL (8-26) 24 mg/dL (8-26) Creatinine 1.1 mg/dL (0.7-1.3) 1.3 mg/dL (0.7-1.3) Estimated GFR (Cockcroft-Gault) 69.0 56.9 Glucose Level 169 mg/dL (70-99) 123 mg/dL (70-99) Calcium Level 8.7 mg/dL (8.5-10.1) 8.4 mg/dL (8.5-10.1) BUN/Creatinine Ratio 18 (6-20) Total Bilirubin 0.3 mg/dL (0.2-1.0) Aspartate Amino Transf (AST/SGOT) 15 U/L (15-37) Alanine Aminotransferase (ALT/SGPT) 32 U/L (16-63) Alkaline Phosphatase 52 U/L (46-116) Total Protein 5.7 g/dL (6.4-8.2) Albumin 2.3 g/dL (3.4-5.0) Albumin/Globulin Ratio 0.7 (1.0-1.7) Laboratory Tests Test 08/27/18 06:30 White Blood Count 9.1 x10^3/uL (4.0-11.0) Red Blood Count 2.62 x10^6/uL (4.30-5.70) Hemoglobin 7.9 g/dL (13.0-17.5) Hematocrit 23.6 % (39.0-53.0) Mean Corpuscular Volume 90 fL (79-100) Mean Corpuscular Hemoglobin 30 pg (25-35) Mean Corpuscular Hemoglobin Concent 34 g/dL (31-37) Red Cell Distribution Width 17.9 % (11.5-14.5) Platelet Count 46 x10^3/uL (140-400) Neutrophils (%) (Auto) 89 % (31-73) Lymphocytes (%) (Auto) 5 % (24-48) Monocytes (%) (Auto) 6 % (0-9) Eosinophils (%) (Auto) 0 % (0-3) Basophils (%) (Auto) 0 % (0-3) Neutrophils # (Auto) 8.1 x10^3uL (1.8-7.7) Lymphocytes # (Auto) 0.5 x10^3/uL (1.0-4.8) Monocytes # (Auto) 0.5 x10^3/uL (0.0-1.1) Eosinophils # (Auto) 0.0 x10^3/uL (0.0-0.7) Basophils # (Auto) 0.0 x10^3/uL (0.0-0.2) Sodium Level 141 mmol/L (136-145) Potassium Level 4.7 mmol/L (3.5-5.1) Chloride Level 102 mmol/L (98-107) Carbon Dioxide Level 37 mmol/L (21-32) Anion Gap 2 (6-14) Blood Urea Nitrogen 24 mg/dL (8-26) Creatinine 1.3 mg/dL (0.7-1.3) Estimated GFR (Cockcroft-Gault) 56.9 BUN/Creatinine Ratio 18 (6-20) Glucose Level 123 mg/dL (70-99) Calcium Level 8.4 mg/dL (8.5-10.1) Total Bilirubin 0.3 mg/dL (0.2-1.0) Aspartate Amino Transf (AST/SGOT) 15 U/L (15-37) Alanine Aminotransferase (ALT/SGPT) 32 U/L (16-63) Alkaline Phosphatase 52 U/L (46-116) Total Protein 5.7 g/dL (6.4-8.2) Albumin 2.3 g/dL (3.4-5.0) Albumin/Globulin Ratio 0.7 (1.0-1.7) Medications Active Scripts Medications Dose Route/Sig Max Daily Dose Days Date Category Oxycodone Hcl Immed.release (Oxycodone Hcl) 30 Mg Tablet 20 Mg PO Q3HRS PRN 02/09/18 Reported Oxycodone Hcl Immed.release (Oxycodone Hcl) 30 Mg Tablet 1 Tab PO Q4HRS 02/09/18 Reported Vitamin B-12 (Cyanocobalamin (Vitamin B-12)) 1,000 Mcg Tablet 1,000 Mcg PO DAILY 06/20/16 Reported Multivitamins (Multivitamin) 1 Each Tablet 1 Each PO DAILY 04/02/16 Reported Compazine (Prochlorperazine Maleate) 10 Mg Tablet 10 Mg PO Q 6 HRS PRN 10/23/14 Reported Zofran (Ondansetron Hcl) 8 Mg Tablet PO Q 8HRS PRN 10/23/14 Reported Albuterol Sulfate Neb Soln (Albuterol Sulfate) 1.25 Mg/3 Ml Vial.neb 1.25 Mg NEB PRN QID PRN 09/12/14 Reported Miralax (Polyethylene Glycol 3350) 17 Gm Powd.pack 1 Pkt PO PRN DAILY PRN 09/12/14 Reported Testosterone Cypionate 200 Mg/1 Ml Vial 1 Ml IM QMONTH 09/04/14 Reported Trazodone Hcl 150 Mg Tablet 150 Mg PO HS 09/04/14 Reported FENTANYL 100mcg/hr (Fentanyl) 1 Each Patch.td72 2 Patch TP Q3DAYS 09/01/14 Reported Potassium Chloride 20 Meq Tab.er.prt 20 Meq PO DAILY 09/01/14 Reported Atorvastatin Calcium 10 Mg Tablet 1 Tab PO DAILY 09/01/14 Reported Tamsulosin Hcl 0.4 Mg Cap.er.24h 1 Cap PO HS 09/01/14 Reported Proair Hfa Inhaler (Albuterol Sulfate) 8.5 Gm Hfa.aer.ad 2 Puff IH PRN Q2HR PRN 09/01/14 Reported Impression . IMPRESSION: 1. Acute on chronic respiratory failure, multifactorial. 2. Acute exacerbation of chronic obstructive pulmonary disease. 3. Acute nonspecific bronchitis. 4. Abnormal CT revealing possible lymphangitic spread. 5. History of small lung cancer diagnosed in 08/13/2018, undergoing chemotherapy. 6. Tobacco dependence. Plan . ok to d/c in am will change to po med follow up in office in FEb ROSAURA MONTALVO MD Aug 27, 2018 10:33
[2018-08-27 11:15] VITALS: BP 120/70
[2018-08-27] MEDS ORDERED: HEPARIN PF 500 UNIT/5 ML DISP.SYRIN. IV ONE (11:30)
--- NOTE | 2018-08-30 16:34 | PDOC3 ---
Discharge Summary [facility] Date of Admission: Aug 24, 2018 Discharge Date: Aug 27, 2018 Admitting Diagnosis pneumonia Final Diagnosis Problems Medical Problems: (1) Chest pain Status: Acute (2) Pneumonia Status: Acute (3) Shortness of breath Status: Acute CONSULTS Drs. Franks, Guero Procedures transfusion Brief Hospital Course Mr. George is a 58 old male who presented with SOA from Pneumonia complicated by a COPD acute exacerbation and treated with antibiotics, neb tx, steroids, throat lozenges and he improved and was transitioned to oral meds. He also had acute on chronic respiratory failure and was continued on O2. His lung cancer treatment cycle was held- Dr. Cardenas/Guero followed and will f/u as outpatient. He became anemic and thrombocytopenic from prior chemo and was transfused 1 unit of pRBC Disposition home CONDITION AT DISCHARGE: Improved, Stable Diet regular Scheduled Amoxicillin/Potassium Clav (Augmentin 875-125 Tablet), 1 TAB PO BID, (Reported) Atorvastatin Calcium (Atorvastatin Calcium), 1 TAB PO DAILY, (Reported) Cyanocobalamin (Vitamin B-12) (Vitamin B-12), 1,000 MCG PO DAILY, (Reported) Fentanyl (FENTANYL 100mcg/hr), 2 PATCH TP Q3DAYS, (Reported) Multivitamin (Multivitamins), 1 EACH PO DAILY, (Reported) Ondansetron Hcl (Zofran), PO q 8hrs prn, (Reported) Oxycodone Hcl (Oxycodone Hcl Immed.release ), 1 TAB PO Q4HRS, (Reported) Potassium Chloride (Potassium Chloride), 20 MEQ PO DAILY, (Reported) Prochlorperazine Maleate (Compazine), 10 MG PO q 6 hrs prn, (Reported) Tamsulosin Hcl (Tamsulosin Hcl), 1 CAP PO HS, (Reported) Testosterone Cypionate (Testosterone Cypionate), 1 ML IM QMONTH, (Reported) Trazodone Hcl (Trazodone Hcl), 150 MG PO HS, (Reported) Scheduled PRN Albuterol Sulfate (Proair Hfa Inhaler), 2 PUFF IH PRN Q2HR PRN for SHORTNESS OF BREATH, (Reported) Albuterol Sulfate (Albuterol Sulfate Neb Soln), 1.25 MG NEB PRN QID PRN for SHORTNESS OF BREATH, (Reported) Oxycodone Hcl (Oxycodone Hcl Immed.release ), 20 MG PO Q3HRS PRN for PAIN, ( Reported) Polyethylene Glycol 3350 (Miralax), 1 PKT PO PRN DAILY PRN for CONSTIPATION, ( Reported) Follow Up 1-2 weeks Caitlyn ELLIOTT MD Aug 30, 2018 16:33
== END 2018-08-27 11:35 | disposition home or self-care (01) | DRG 193 ==
LOC: ER 22:44 → 6 SOUTH 08-24 01:37
PROVIDERS: ADMIT Internal Medicine; ATTEND Family Medicine
PROC: 30233N1 Transfusion of Nonautologous Red Blood Cells into Peripheral Vein, Percutaneous Approach (ICD-10-PCS; principal; 2018-08-26)
DX: J18.9 Pneumonia, unspecified organism (principal); J96.20 Acute and chronic respiratory failure, unspecified whether with hypoxia or hypercapnia; C34.90 Malignant neoplasm of unspecified part of unspecified bronchus or lung; J44.0 Chronic obstructive pulmonary disease with (acute) lower respiratory infection; C79.51 Secondary malignant neoplasm of bone; J44.1 Chronic obstructive pulmonary disease with (acute) exacerbation; Z68.1 Body mass index [BMI] 19.9 or less, adult; D69.59 Other secondary thrombocytopenia; E87.5 Hyperkalemia; Z99.81 Dependence on supplemental oxygen; G89.29 Other chronic pain; F41.1 Generalized anxiety disorder; F17.210 Nicotine dependence, cigarettes, uncomplicated; M54.9 Dorsalgia, unspecified; J20.9 Acute bronchitis, unspecified; K59.00 Constipation, unspecified; R73.9 Hyperglycemia, unspecified; D64.9 Anemia, unspecified; T45.1X5A Adverse effect of antineoplastic and immunosuppressive drugs, initial encounter; Y92.89 Other specified places as the place of occurrence of the external cause; Z98.1 Arthrodesis status; Z71.6 Tobacco abuse counseling; Z82.49 Family history of ischemic heart disease and other diseases of the circulatory system
CPT/HCPCS: 36415; 71275; 80048; 80053; 82805; 83036; 83605; 83880; 84484; 85007; 85025; 85027; 86850; 86900; 86901; 86920; 87040; 87804; 93005; 94640; 94760; 96361; 96374; J0456; J0696; J2930; J7040; J7050; J7613; J7620; J7644; P9016; Q9967; 99285-25; J7030

== ENCOUNTER → 2018-09-07 | Outpatient (CLI) | payer OTHER ==
[2018-08-27 11:15] VITALS: BP 120/70
[~2018-09-07] MED LIST changes: +AMOX1TAB61 PO
--- NOTE | 2018-09-07 16:01 | RAD ---
CHEST PA LATERAL History: Difficulty catching breath, pneumonia last week, malignant neoplasm Comparison: July 21, 2018 Findings: 2 AP and single lateral views of the chest are submitted. There is again right port catheter. Heart size is stable, within normal limits. There is prominent emphysema. There is now anterior opacity on the lateral view likely of the medial right middle lobe which may be due to atelectasis or infiltrate. There is no dependent pleural fluid or pneumothorax. Left perihilar opacity is similar. Impression: 1. There is right middle lobe atelectasis or infiltrate. There is emphysema. Electronically signed by: Stephen Haddad MD (09/07/2018 3:57 PM) [id number]
== END | disposition home or self-care (01) ==
LOC: RAD 13:52
PROVIDERS: ATTEND Family Medicine
DX: C34.90 Malignant neoplasm of unspecified part of unspecified bronchus or lung (principal); J43.9 Emphysema, unspecified; F17.210 Nicotine dependence, cigarettes, uncomplicated
CPT/HCPCS: 71046

== ENCOUNTER 2018-10-17 18:34 | Inpatient (IN) | payer OTHER ==
[~2018-10-17] VITALS: Ht 180.3 cm; Wt 60.0 kg
[2018-10-17 19:10] LABS: BASO # 0.1 x10^3/uL (0.0-0.2); BASO % 1 % (0-3); EOS # 0.1 x10^3/uL (0.0-0.7); EOS % 1 % (0-3); HEMATOCRIT 27.5 % (39.0-53.0); HEMOGLOBIN 8.5 g/dL (13.0-17.5); LYMPH # 0.5 x10^3/uL (1.0-4.8); LYMPH % 7 % (24-48); MEAN CORPUSCULAR HEMOGLOBIN 30 pg (25-35); MEAN CORPUSCULAR HGB CONC 31 g/dL (31-37); MEAN CORPUSCULAR VOLUME 95 fL (79-100); MONO # 0.7 x10^3/uL (0.0-1.1); MONO % 11 % (0-9); NEUT # 5.2 x10^3uL (1.8-7.7); NEUT % 80 % (31-73); PLATELET COUNT 129 x10^3/uL (140-400); RED CELL DISTRIBUTION WIDTH 20.5 % (11.5-14.5); WHITE BLOOD COUNT 6.6 x10^3/uL (4.0-11.0)
[2018-10-17] MEDS ORDERED: IPRATRPIUM/ALBUTEROL 0.5/2.5MG 3 ML NEBU. NEB ONE (19:15)
[2018-10-17 19:22] LABS: CALCIUM 8.9 mg/dL (8.5-10.1); CREATININE 0.8 mg/dL (0.7-1.3); GFR 99.6; POTASSIUM 4.6 mmol/L (3.5-5.1)
[2018-10-17 19:29] LABS: ALBUMIN/GLOBULIN RATIO 0.9 (1.0-1.7); MAGNESIUM 1.8 mg/dL (1.8-2.4); TOTAL BILIRUBIN 0.5 mg/dL (0.2-1.0); TOTAL PROTEIN 6.5 g/dL (6.4-8.2)
[2018-10-17] MEDS ORDERED: methylPREDNISolone SOD SUCC PF 125 MG/2 ML VIAL. IV ONE (19:30)
--- NOTE | 2018-10-17 19:35 | PHYS DOC ---
Past Medical History Past Medical History: Anxiety, Cancer, COPD, PA, Pneumonia, TIA, Other Additional Past Medical Histor: lung cancer, CHRONIC BACK PAIN Past Surgical History: Other Additional Past Surgical Histo: multiple shoulder,neck surgeries,PAC/R CHEST Additional Information: 0.5 PPD Alcohol Use: None Drug Use: None Adult General Chief Complaint Chief Complaint: MULTIPLE COMPLAINTS HPI HPI Patient is a 58 year old male who presents with increasing shortness of breath over the last 1.5 weeks. Reports associated chills, productive cough, dull achy chest pain with deep breathing, and anorexia. Reports small volume hemoptysis yesterday x1 day. Pt was recently hospitalized for pneumonia on 10/06 and reports feeling progressively worse since discharge. He was prescribed Augmentin at discharge with 2 days remaining. Reports his last chemo treatment was approximately 10 days ago. Denies fever, nausea or vomiting. he had pe study 10/08t was negative Review of Systems Review of Systems Constitutional: Endorses chills, denies fever [] Eyes: Denies change in visual acuity, redness, or eye pain [] HENT: Denies nasal congestion or sore throat [] Respiratory: Endorses productive cough, shortness of breath [] Cardiovascular: No additional information not addressed in HPI [] GI: Denies abdominal pain, nausea, vomiting, bloody stools or diarrhea [] : Denies dysuria or hematuria [] Musculoskeletal: Denies back pain or joint pain [] Integument: Denies rash or skin lesions [] Neurologic: Denies headache, focal weakness or sensory changes [] Endocrine: Denies polyuria or polydipsia [] All other systems were reviewed and found to be within normal limits, except as documented in this note. Current Medications Current Medications Current Medications Medications (Trade) Dose Ordered Sig/Narcisa Start Time Stop Time Status Last Admin Dose Admin Albuterol/ Ipratropium (Duoneb) 3 ml RTQID 10/18/18 08:00 10/19/18 07:59 UNV Lorazepam (Ativan) 1 mg Q4HRS PRN 10/17/18 20:45 UNV Methylprednisolone Sodium Succinate (SOLU-Medrol 125MG VIAL) 125 mg 1X ONCE 10/17/18 19:30 10/17/18 19:31 DC 10/17/18 19:46 125 MG Piperacillin Sod/ Tazobactam Sod (Zosyn Per Pharmacy) 1 each PRN DAILY PRN 10/17/18 20:15 UNV Piperacillin Sod/ Tazobactam Sod 3.375 gm/Sodium Chloride 50 ml @ 100 mls/hr 1X ONCE 10/17/18 20:15 10/17/18 20:44 Vancomycin HCl (Vanco Per Pharmacy) 1 each PRN DAILY PRN 10/17/18 20:15 UNV Vancomycin HCl 1.5 gm/Sodium Chloride 500 ml @ 250 mls/hr 1X ONCE 10/17/18 21:00 10/17/18 22:59 Allergies Allergies Allergies Coded Allergies Type Severity Reaction Last Updated Verified No Known Drug Allergies 10/06/18 No Physical Exam Physical Exam Constitutional: Cachectic, ill-appearing in mild acute distress. [] HENT: Normocephalic, atraumatic, bilateral external ears normal, oropharynx moist, no oral exudates, nose normal. [] Eyes: PERRLA, EOMI, conjunctiva normal, no discharge. [] Neck: Normal range of motion, no tenderness, supple, no stridor. [] Cardiovascular:Heart rate regular rhythm, no murmur [] Lungs & Thorax: Bilateral wheezing, diffusely coarse breath sounds [] Abdomen: Bowel sounds normal, soft, no tenderness, no masses, no pulsatile masses. [] Skin: Warm, dry, no erythema, no rash. [] Back: No tenderness, no CVA tenderness. [] Extremities: bilateral pitting edema in LE's no asymmetry, no tenderness, no cyanosis, no clubbing, ROM intact. [] Neurologic: Alert and oriented X 3, normal motor function, normal sensory function, no focal deficits noted. [] Psychologic: Affect normal, judgement normal, mood normal. [] Current Patient Data Vital Signs Vital Signs Date Time Temp Pulse Resp B/P (MAP) Pulse Ox O2 Delivery O2 Flow Rate FiO2 10/17/18 19:43 8 17 143/73 (96) Nasal Cannula 2.0 10/17/18 19:40 96 10/17/18 18:34 98.5 98.5 Lab Values Laboratory Tests Test 10/17/18 18:45 White Blood Count 6.6 x10^3/uL (4.0-11.0) Red Blood Count 2.90 x10^6/uL (4.30-5.70) L Hemoglobin 8.5 g/dL (13.0-17.5) L Hematocrit 27.5 % (39.0-53.0) L Mean Corpuscular Volume 95 fL (79-100) Mean Corpuscular Hemoglobin 30 pg (25-35) Mean Corpuscular Hemoglobin Concent 31 g/dL (31-37) Red Cell Distribution Width 20.5 % (11.5-14.5) H Platelet Count 129 x10^3/uL (140-400) L Neutrophils (%) (Auto) 80 % (31-73) H Lymphocytes (%) (Auto) 7 % (24-48) L Monocytes (%) (Auto) 11 % (0-9) H Eosinophils (%) (Auto) 1 % (0-3) Basophils (%) (Auto) 1 % (0-3) Neutrophils # (Auto) 5.2 x10^3uL (1.8-7.7) Lymphocytes # (Auto) 0.5 x10^3/uL (1.0-4.8) L Monocytes # (Auto) 0.7 x10^3/uL (0.0-1.1) Eosinophils # (Auto) 0.1 x10^3/uL (0.0-0.7) Basophils # (Auto) 0.1 x10^3/uL (0.0-0.2) Platelet Estimate Adequate (ADEQUATE) Poikilocytosis Slight Anisocytosis Mod Schistocytes Occ Sodium Level 137 mmol/L (136-145) Potassium Level 4.6 mmol/L (3.5-5.1) Chloride Level 95 mmol/L (98-107) L Carbon Dioxide Level 38 mmol/L (21-32) H Anion Gap 4 (6-14) L Blood Urea Nitrogen 15 mg/dL (8-26) Creatinine 0.8 mg/dL (0.7-1.3) Estimated GFR (Cockcroft-Gault) 99.6 BUN/Creatinine Ratio 19 (6-20) Glucose Level 121 mg/dL (70-99) H Lactic Acid Level 1.2 mmol/L (0.4-2.0) Calcium Level 8.9 mg/dL (8.5-10.1) Magnesium Level 1.8 mg/dL (1.8-2.4) Total Bilirubin 0.5 mg/dL (0.2-1.0) Aspartate Amino Transferase (AST) 18 U/L (15-37) Alanine Aminotransferase (ALT) 25 U/L (16-63) Alkaline Phosphatase 57 U/L (46-116) Troponin I Quantitative < 0.017 ng/mL (0.000-0.055) OP-Mzt-R-Type Natriuretic Peptide 176 pg/mL (0-124) H Total Protein 6.5 g/dL (6.4-8.2) Albumin 3.0 g/dL (3.4-5.0) L Albumin/Globulin Ratio 0.9 (1.0-1.7) L Laboratory Tests 10/17/18 18:45 Laboratory Tests 10/17/18 18:45 EKG EKG Sinus tachycardia, rate [address] segment changes [] Radiology/Procedures Radiology/Procedures cxr suggestive of possible subtle right mid lung consolidation improved overall from previous but possibly mild new abnormality[] Course & Med Decision Making Course & Med Decision Making Pt is a 58 year old male with past medical history of small cell lung cancer, COPD, hypertension, and depression presents with increasing shortness of breath x1.5 with recent hospitalization for pneumonia. Likely hospital acquired pneumonia in the setting of recent hospitalization and immunosuppression. Rule out CHF. Low probability of PE given insidious onset of shortness of breath and recent neg pe study in [facility]. abx given Pertinent Labs and Imaging studies reviewed. (See chart for details) Plan Chest x-ray CBC, BMP lactic acid Blood cultures Flu swab Start antibiotics-Vancomycin, Zosyn [] d/w dr mcclellan for admission Dragon Disclaimer Dragon Disclaimer This electronic medical record was generated, in whole or in part, using a voice recognition dictation system. Departure Departure Impression: Primary Impression: COPD exacerbation Disposition: ADMITTED INPATIENT Admitting Physician: Marylou Mcclellan Condition: STABLE Referrals: Caitlyn ELLIOTT MD (PCP) GINA BRITO MD Oct 17, 2018 19:35
[2018-10-17 19:55] LABS: ANISOCYTOSIS MOD; PLT ESTIMATE ADEQUATE (ADEQUATE); POIKILOCYTOSIS SLIGHT
[2018-10-17 19:56] LABS: SCHISTOCYTES OCC
[2018-10-17] MEDS ORDERED: PIPERACILLIN/TAZOBACTAM 3.375 GM in IV NORMAL SALINE 50ML 50 ML IV ONE (20:15)
[2018-10-17] MEDS ORDERED: PIP/TAZO PER PHARMACY MC PRN (20:15)
[2018-10-17 20:39] LABS: INFLUENZA A PATIENT NEGATIVE (NEGATIVE); INFLUENZA B PATIENT NEGATIVE (NEGATIVE)
[2018-10-17] MEDS ORDERED: VANCOMYCIN 1.5 GM in IV NORMAL SALINE 500ML BAG 500 ML IV ONE (21:00)
[2018-10-17 21:40] VITALS: BP 128/77
--- NOTE | 2018-10-17 21:40 | NUR ---
The patient, SHADE DYER, 58 y/o, M admitted by ANNI HENNESSY MD, was given written information regarding hospital policies, unit procedures and contact persons. Valuables were checked and left with him.
--- NOTE | 2018-10-17 22:07 | RAD ---
Examination: PORTABLE CHEST 1V History: SOA Comparison/Correlation: 10/08/2018 chest x-ray exam Findings: Right-sided infusion port catheter joint overlying superior vena cava. Heart size is normal. Interstitial thickening of lung chin noted. Opacity at the right mid thoracic region is unchanged. Pulmonary hyperinflation evident. Impression: COPD. Right midlung focal infiltrate is unchanged. Electronically signed by: Hudson Dejesus MD (10/17/2018 10:04 PM) [facility]
[2018-10-18] MEDS: VANCOMYCIN PER PHARMACY MC PRN ×2 (00:43→13:14)
--- NOTE | 2018-10-18 00:43 | NUR ---
Pharmacy Vancomycin Dosing Note S:Consulted to monitor and dose vancomycin started 10/17/18. O:SHADE DYER is a 58 year old M with HCAP . Height: 5 feet, 11 inches Weight: 59.793133 kg [place] Body Weight: 75.30 Adjusted Body Weight: 69.18 Dosing Weight: Actual Other Antibiotics: ZOSYN 3.375 GM Q6H LABS: Last BUN: 15 Last Creatinine: 0.8 Creatinine Clearance: 86 mL/min Last WBC: 6.6 Last Procalcitonin: Tmax (past 24 hours): Microbiology: I/O: Drug Levels: Last level: on at Last dose given 10/17/18 at 2100 Vancomycin Dosing: Loading Dose: 1500 mg x1 Dosing Weight: Actual Target Trough: 15-20 A: Based on: WT AND CRCL P: 1. Begin Vancomycin 1000 mg IV q12h 2. Follow up Trough level on 10/19/18 at 0830 3. Pharmacy will continue to monitor, follow and adjust therapy as needed. YVONNE LÓPEZ RPH, 10/18/1842 Signed: 10/18/18 at 42 by YVONNE LÓPEZ RPH PHA
[2018-10-18] MEDS: PIPERACILLIN/TAZOBACTAM 3.375 GM in IV NORMAL SALINE 50ML 50 ML IV SCH ×5 (00:52→23:10)
[2018-10-18 03:00] VITALS: BP 114/67
[2018-10-18 07:00] VITALS: BP 122/78
[2018-10-18] MEDS: IPRATRPIUM/ALBUTEROL 0.5/2.5MG 3 ML NEBU. NEB SCH ×4 (07:05→19:17)
[2018-10-18] MEDS ORDERED: ALBUTEROL SULFATE 2.5 MG/3 ML NEBU. NEB PRN (07:45)
[2018-10-18] MEDS: VANCOMYCIN 1 GM in IV NORMAL SALINE 250ML 250 ML IV SCH ×2 (08:56→21:28)
[2018-10-18] MEDS ORDERED: PROCHLORPERAZINE 5 MG TABLET. PO PRN (09:15)
[2018-10-18] MEDS: CYANOCOBALAMIN (VITAMIN B-12) 1,000 MCG TABLET. PO SCH (09:16)
[2018-10-18] MEDS: ATORVASTATIN CALCIUM 10 MG TABLET. PO SCH (09:16)
[2018-10-18] MEDS: POTASSIUM CHLORIDE 20 MEQ TABLET.ER. PO SCH (09:16)
[2018-10-18] MEDS: MULTIVITAMIN with MINERAL TABLET. PO SCH (09:16)
[2018-10-18] MEDS: oxyCODONE IR 5 MG TABLET PO PRN ×2 (09:17→14:49)
[2018-10-18 10:51] VITALS: BP 119/72
--- NOTE | 2018-10-18 12:03 | CONS ---
DATE OF CONSULTATION: ATTENDING PHYSICIAN: Dr. Marylou Mcclellan. REASON FOR CONSULTATION: Respiratory failure, pneumonia, lung cancer. HISTORY OF PRESENT ILLNESS: The patient is known to us from his recent hospitalization. He is a 58-year-old male who has history of small cell lung cancer since 2013 and has been on chemo. He was hospitalized for multiple etiologies during his previous admission a week ago. He had acute hypoxic respiratory failure. He had pneumonia. He had abnormal CT chest with suspected postobstructive changes. He was subsequently discharged. He was brought into the hospital with complaint of shortness of breath. He also had some hemoptysis. Denies any chest pain, no headaches. He has a cough, but is unable to bring up sputum. He is currently on oxygen. No headaches, no nausea, vomiting or diarrhea. I have reviewed his chest x-ray which shows interstitial changes mostly on the right. There is some right middle lobe opacity which is unchanged. I have been asked to see him for further evaluation. PAST MEDICAL HISTORY: Significant for history of small cell lung cancer diagnosed by CT-guided biopsy in August of 2014. He had evidence of large left upper hilar and mediastinal soft tissue mass at that time. He has completed 6 cycles of chemo. He also received radiation. The patient had evidence of recurrent malignancy on bronchoscopy on 02/27/2016. At that time, he had a mediastinal mass. He was treated with chemo again. However, on another CT done in October 2016, he had recurrence as well. He has been on topotecan. History of chronic back issues. History of smoking [id number]. FAMILY HISTORY: Negative for malignancy. REVIEW OF SYSTEMS: Ten-point system obtained. Pertinent positives discussed in my history of present illness, otherwise noncontributory. All systems that were negative were reviewed as well. PHYSICAL EXAMINATION: GENERAL: He is awake, but lethargic. He is currently on oxygen. VITAL SIGNS: Reviewed. He is afebrile. HEENT: Sclerae nonicteric. NECK: Supple. LUNGS: With diminished breath sounds bilaterally with poor air exchange. CARDIOVASCULAR: Regular rate. ABDOMEN: Soft, nontender. EXTREMITIES: With no pitting edema. LABORATORY DATA: Chest x-ray was reviewed as discussed above. Labs were reviewed. White cell count 6.6, hemoglobin 8.5 and platelets are 129. BUN and creatinine 15 and 0.8. IMPRESSION: 1. Acute on chronic hypoxic respiratory failure secondary to multifactorial etiologies including combination of chronic obstructive pulmonary disease, suspected postobstructive pneumonia and severe debility. 2. 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 Currently, has been on topotecan. Last CT chest on previous admissions shows no evidence of pulmonary embolism, but evidence of residual tumor. Cannot exclude the possibility of ongoing endobronchial lesion, which was proven on prior bronchoscopy. 3. Underlying suspected severe chronic obstructive pulmonary disease with acute on chronic hypoxic respiratory failure. 4. Severe debility. RECOMMENDATIONS: 1. Discussed with RN and patient. Continue with present oxygen. 2. Continue with broad spectrum antibiotic. 3. Bronchodilators. 4. The patient's prognosis is grim. He has declining quality of life. I will need to address goals of care. I recommend that we should consult palliative care to at least address advanced directives and goals of care. 5. Discussed with RN. We will follow along with you. Addendum: d/w in detail. she agrees for comfort care approach. DNR/ DNI [place] CAIN MD DR: JAYSHREE/sergio JOB#: [id number] / [id number] JULES
--- NOTE | 2018-10-18 14:16 | PDOC2 ---
PALLIATIVE CARE Palliative Care Note Palliative Care Consult requested by Dr. Dominguez to address goals of care and AD Medical Assessment per medical record; 1. Acute on chronic hypoxic respiratory failure secondary to multifactorial etiologies including combination of chronic obstructive pulmonary disease, suspected postobstructive pneumonia and severe debility. 2. 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 Currently, has been on topotecan. Last CT chest on previous admissions shows no evidence of pulmonary embolism, but evidence of residual tumor. Cannot exclude the possibility of ongoing endobronchial lesion, which was proven on prior bronchoscopy. 3. Underlying suspected severe chronic obstructive pulmonary disease with acute on chronic hypoxic respiratory failure. 4. Severe debility. Patient alert. Received permission of speak with . Plan family meeting tomorrow at 1300 JASVIR VÁZQUEZ Oct 18, 2018 14:16
--- NOTE | 2018-10-18 14:55 | EKG ---
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
[2018-10-18 15:00] VITALS: BP 123/84
--- NOTE | 2018-10-18 17:48 | PDOC1 ---
History and Physical Date of Admission Date of Admission 10/17/18 Identification/Chief Complaint Chief Complaint short of breath Source Source: Caregiver, Chart review, Patient History of Present Illness History of Present Illness Worsening dyspnea since discharge, now unable to catch breath with any activity Past Medical History Cardiovascular: HTN, Hyperlipidemia Pulmonary: COPD, Other CENTRAL NERVOUS SYSTEM: TIA GI: GERD Heme/Onc: Anemia NOS Hepatobiliary: No pertinent hx Psych: No pertinent hx Rheumatologic: No pertinent hx Infectious disease: No pertinent hx Renal/: Benign prostatic enlarg. Endocrine: No pertinent hx Past Surgical History Past Surgical History: Hernia Repair, Other Family History Family History: Coronary Artery Disease Social History ALCOHOL: none Drugs: None Current Medications Current Medications Current Medications Medications (Trade) Dose Ordered Sig/Narcisa Start Time Stop Time Status Last Admin Dose Admin Albuterol Sulfate (Ventolin Neb Soln) 1.25 mg PRN Q6HRS PRN 10/18/18 09:15 Albuterol/ Ipratropium (Duoneb) 3 ml RTQID 10/18/18 08:00 10/19/18 07:59 10/18/18 16:00 3 ML Atorvastatin Calcium (Lipitor) 10 mg DAILY 10/18/18 10:00 10/18/18 09:16 10 MG Cyanocobalamin (Vitamin B-12) 1,000 mcg DAILY 10/18/18 10:00 10/18/18 09:16 1,000 MCG Fentanyl (Duragesic 100mcg/Hr Patch) 2 patch Q3DAYS 10/19/18 09:00 Lorazepam (Ativan) 1 mg PRN Q4HRS PRN 10/17/18 20:45 10/18/18 14:50 1 MG Methylprednisolone Sodium Succinate (SOLU-Medrol 125MG VIAL) 125 mg 1X ONCE 10/17/18 19:30 10/17/18 19:31 DC 10/17/18 19:46 125 MG Multivitamins (Thera M Plus) 1 tab DAILY 10/18/18 10:00 10/18/18 09:16 1 TAB Oxycodone HCl (Roxicodone) 20 mg PRN Q3HRS PRN 10/18/18 09:00 10/18/18 14:49 20 MG Piperacillin Sod/ Tazobactam Sod (Zosyn Per Pharmacy) 1 each PRN DAILY PRN 10/17/18 20:15 Piperacillin Sod/ Tazobactam Sod 3.375 gm/Sodium Chloride 50 ml @ 100 mls/hr Q6HRS 10/18/18 01:00 10/18/18 17:24 100 MLS/HR Polyethylene Glycol (miraLAX PACKET) 17 gm PRN DAILY PRN 10/19/18 09:00 Potassium Chloride (Klor-Con) 20 meq DAILY 10/18/18 10:00 10/18/18 09:16 20 MEQ Prochlorperazine Maleate (Compazine) 10 mg PRN Q6HRS PRN 10/18/18 09:15 Tamsulosin HCl (Flomax) 0.4 mg HS 10/18/18 21:00 Trazodone HCl (Desyrel) 150 mg QHS 10/18/18 21:00 Vancomycin HCl (Vanco Per Pharmacy) 1 each PRN DAILY PRN 10/17/18 20:15 10/18/18 13:14 1 EACH Vancomycin HCl (Vancomycin Trough Level) 1 each 1X ONCE 10/19/18 08:30 10/19/18 08:31 Vancomycin HCl 1.5 gm/Sodium Chloride 500 ml @ 250 mls/hr 1X ONCE 10/17/18 21:00 10/17/18 22:59 DC 10/17/18 21:00 250 MLS/HR Vancomycin HCl 1 gm/Sodium Chloride 250 ml @ 250 mls/hr Q12HR 10/18/18 09:00 10/18/18 08:56 250 MLS/HR Allergies Allergies Allergies Coded Allergies Type Severity Reaction Last Updated Verified No Known Drug Allergies 10/06/18 No ROS Review of System CONSTITUTIONAL: No fever or chills EYES: No recent changes SKIN: No rash or itching CARDIOVASCULAR: No chest pain, syncope, palpitations, or edema RESPIRATORY: ++ SOB GASTROINTESTINAL: No nausea, vomiting or abdominal pain NEUROLOGICAL: No headaches or weakness ENDOCRINE: No cold or heat intolerance GENITOURINARY: No urgency or frequency of urination MUSCULOSKELETAL: chronic back pain LYMPHATICS: No enlarged lymph nodes PSYCHIATRIC: chronic anxiety Physical Exam Physical Exam GEN.: moderate respiratory distress. Alert and oriented but has difficulty keeping eyes open as quite fatigued. HEENT: Head is normocephalic, atraumatic NECK: Supple, no JVD. LUNGS: Clear but diminished. HEART: RRR, S1, S2 present. Peripheral pulses intact ABDOMEN: Soft, nontender. Positive bowel sounds. EXTREMITIES: Without any cyanosis, 2+ edema of feet. NEUROLOGIC: Normal speech, normal tone PSYCHIATRIC: Normal affect, normal mood. SKIN: No ulcerations Vitals Vitals Vital Signs Date Time Temp Pulse Resp B/P (MAP) Pulse Ox O2 Delivery O2 Flow Rate FiO2 10/18/18 17:21 98 Nasal Cannula 3.0 10/18/18 15:00 97.8 80 18 123/84 (97) 97.8 Labs Labs Laboratory Tests Test 10/17/18 18:45 10/17/18 20:08 White Blood Count 6.6 x10^3/uL (4.0-11.0) Red Blood Count 2.90 x10^6/uL (4.30-5.70) Hemoglobin 8.5 g/dL (13.0-17.5) Hematocrit 27.5 % (39.0-53.0) Mean Corpuscular Volume 95 fL (79-100) Mean Corpuscular Hemoglobin 30 pg (25-35) Mean Corpuscular Hemoglobin Concent 31 g/dL (31-37) Red Cell Distribution Width 20.5 % (11.5-14.5) Platelet Count 129 x10^3/uL (140-400) Neutrophils (%) (Auto) 80 % (31-73) Lymphocytes (%) (Auto) 7 % (24-48) Monocytes (%) (Auto) 11 % (0-9) Eosinophils (%) (Auto) 1 % (0-3) Basophils (%) (Auto) 1 % (0-3) Neutrophils # (Auto) 5.2 x10^3uL (1.8-7.7) Lymphocytes # (Auto) 0.5 x10^3/uL (1.0-4.8) Monocytes # (Auto) 0.7 x10^3/uL (0.0-1.1) Eosinophils # (Auto) 0.1 x10^3/uL (0.0-0.7) Basophils # (Auto) 0.1 x10^3/uL (0.0-0.2) Platelet Estimate Adequate (ADEQUATE) Poikilocytosis Slight Anisocytosis Mod Schistocytes Occ Sodium Level 137 mmol/L (136-145) Potassium Level 4.6 mmol/L (3.5-5.1) Chloride Level 95 mmol/L (98-107) Carbon Dioxide Level 38 mmol/L (21-32) Anion Gap 4 (6-14) Blood Urea Nitrogen 15 mg/dL (8-26) Creatinine 0.8 mg/dL (0.7-1.3) Estimated GFR (Cockcroft-Gault) 99.6 BUN/Creatinine Ratio 19 (6-20) Glucose Level 121 mg/dL (70-99) Lactic Acid Level 1.2 mmol/L (0.4-2.0) Calcium Level 8.9 mg/dL (8.5-10.1) Magnesium Level 1.8 mg/dL (1.8-2.4) Total Bilirubin 0.5 mg/dL (0.2-1.0) Aspartate Amino Transf (AST/SGOT) 18 U/L (15-37) Alanine Aminotransferase (ALT/SGPT) 25 U/L (16-63) Alkaline Phosphatase 57 U/L (46-116) Troponin I Quantitative < 0.017 ng/mL (0.000-0.055) FH-Eoq-T-Type Natriuretic Peptide 176 pg/mL (0-124) Total Protein 6.5 g/dL (6.4-8.2) Albumin 3.0 g/dL (3.4-5.0) Albumin/Globulin Ratio 0.9 (1.0-1.7) Influenza Type A Antigen Negative (NEGATIVE) Influenza Type B Antigen Negative (NEGATIVE) Laboratory Tests Test 10/17/18 18:45 10/17/18 20:08 White Blood Count 6.6 x10^3/uL (4.0-11.0) Red Blood Count 2.90 x10^6/uL (4.30-5.70) Hemoglobin 8.5 g/dL (13.0-17.5) Hematocrit 27.5 % (39.0-53.0) Mean Corpuscular Volume 95 fL (79-100) Mean Corpuscular Hemoglobin 30 pg (25-35) Mean Corpuscular Hemoglobin Concent 31 g/dL (31-37) Red Cell Distribution Width 20.5 % (11.5-14.5) Platelet Count 129 x10^3/uL (140-400) Neutrophils (%) (Auto) 80 % (31-73) Lymphocytes (%) (Auto) 7 % (24-48) Monocytes (%) (Auto) 11 % (0-9) Eosinophils (%) (Auto) 1 % (0-3) Basophils (%) (Auto) 1 % (0-3) Neutrophils # (Auto) 5.2 x10^3uL (1.8-7.7) Lymphocytes # (Auto) 0.5 x10^3/uL (1.0-4.8) Monocytes # (Auto) 0.7 x10^3/uL (0.0-1.1) Eosinophils # (Auto) 0.1 x10^3/uL (0.0-0.7) Basophils # (Auto) 0.1 x10^3/uL (0.0-0.2) Platelet Estimate Adequate (ADEQUATE) Poikilocytosis Slight Anisocytosis Mod Schistocytes Occ Sodium Level 137 mmol/L (136-145) Potassium Level 4.6 mmol/L (3.5-5.1) Chloride Level 95 mmol/L (98-107) Carbon Dioxide Level 38 mmol/L (21-32) Anion Gap 4 (6-14) Blood Urea Nitrogen 15 mg/dL (8-26) Creatinine 0.8 mg/dL (0.7-1.3) Estimated GFR (Cockcroft-Gault) 99.6 BUN/Creatinine Ratio 19 (6-20) Glucose Level 121 mg/dL (70-99) Lactic Acid Level 1.2 mmol/L (0.4-2.0) Calcium Level 8.9 mg/dL (8.5-10.1) Magnesium Level 1.8 mg/dL (1.8-2.4) Total Bilirubin 0.5 mg/dL (0.2-1.0) Aspartate Amino Transf (AST/SGOT) 18 U/L (15-37) Alanine Aminotransferase (ALT/SGPT) 25 U/L (16-63) Alkaline Phosphatase 57 U/L (46-116) Troponin I Quantitative < 0.017 ng/mL (0.000-0.055) DK-Pyt-L-Type Natriuretic Peptide 176 pg/mL (0-124) Total Protein 6.5 g/dL (6.4-8.2) Albumin 3.0 g/dL (3.4-5.0) Albumin/Globulin Ratio 0.9 (1.0-1.7) Influenza Type A Antigen Negative (NEGATIVE) Influenza Type B Antigen Negative (NEGATIVE) Images Images Examination: PORTABLE CHEST 1V History: SOA Comparison/Correlation: 10/08/2018 chest x-ray exam Findings: Right-sided infusion port catheter joint overlying superior vena cava. Heart size is normal. Interstitial thickening of lung chin noted. Opacity at the right mid thoracic region is unchanged. Pulmonary hyperinflation evident. Impression: COPD. Right midlung focal infiltrate is unchanged. VTE Prophylaxis Ordered VTE Prophylaxis Devices: No VTE Pharmacological Prophylaxi: No Assessment/Plan Assessment/Plan Assessment acute on chronic respiratory failure, worsening emphysema, ongoing lung cancer, ongoing anemia of chemo and ongoing moderate protein malnutrition, not strong enough for additional chemo treatment Plan Admitted, he does not want to be intubated, he is willing to use bipap, continue current pulm toilette and antibiotics, no evidence of left heart failure but appears to have some right heart failure, Pulm following, Oncology following. Palliative care consulted Caitlyn ELLIOTT MD Oct 18, 2018 17:48
[2018-10-18 19:00] VITALS: BP 101/69
[2018-10-18] MEDS: traZODone 50 MG TABLET. PO SCH (21:26)
[2018-10-18] MEDS: TAMSULOSIN 0.4 MG CAP.ER.24H. PO SCH (21:26)
[2018-10-18 23:00] VITALS: BP 117/77
[2018-10-19 03:00] VITALS: BP 122/71
--- NOTE | 2018-10-19 03:10 | CONS ---
DATE OF CONSULTATION: 10/18/2018 TYPE OF REPORT: Medical oncology consultation. CONSULTATION REQUESTING PHYSICIAN: Dr. Grey Horne. REASON FOR CONSULTATION: Small cell lung cancer and worsening dyspnea due to COPD. HISTORY OF PRESENT ILLNESS: The patient is a 58-year-old gentleman who was diagnosed with small-cell lung cancer by a CT-guided biopsy of the left lung mass on 09/04/2014 and he received chemotherapy with cisplatin and etoposide. He had evidence of recurrent malignancy by bronchoscopy on 02/27/2016 and he was given carboplatin and etoposide for [address] scan on 10/15/2016 revealed new mediastinal soft tissue density suggestive of recurrence and hence topotecan was initiated on 11/03/2016. He received cycle #28, day #2 of topotecan on 10/05/2018 and he did not receive any further chemotherapy because of declining functional status and worsening respiratory failure due to COPD. He was admitted to [facility] again on 10/17/2018 due to worsening shortness of breath. Pulmonary consultation has been obtained. PAST MEDICAL HISTORY: COPD and chronic back issues with bulging disks. SOCIAL HISTORY: He has a [id number] smoking history. FAMILY HISTORY: Negative for malignancy. REVIEW OF SYSTEMS: A 12-point review of system was performed. Pertinent positives are mentioned in the history of present illness. Rest of the system review is negative. PHYSICAL EXAMINATION: GENERAL APPEARANCE: The patient is a 58-year-old gentleman who is in no acute cardiorespiratory distress. VITAL SIGNS: Blood pressure 123/84 and temperature 97.8. HEENT: Head: Atraumatic and normocephalic. Eyes: No icterus. NECK: Supple. CHEST: Bilaterally symmetrical, decreased air entry bilaterally. HEART: S1 and S2 normal. ABDOMEN: Soft and nontender. CENTRAL NERVOUS SYSTEM: No focal deficits. LYMPHATICS: No lymphadenopathy. SKIN: No rashes. PSYCHOLOGIC: Mood and affect are appropriate. LABORATORY DATA: WBC 6.6, hemoglobin 8.5 and platelet count 129. IMPRESSION AND PLAN: 1. Recurrent small cell lung cancer with mediastinal lymphadenopathy, on palliative chemotherapy with topotecan. He received cycle #28, day 2 on 10/05/2018 and then he did not return for further chemotherapy because of frequent hospitalizations due to respiratory failure from chronic obstructive pulmonary disease and pneumonia. Appreciate consultation by Dr. Benito Dominguez. His functional status has declined due to worsening chronic obstructive pulmonary disease and it is unlikely that he will recover to be well enough for further chemotherapy. I also agree with Dr. Dominguez that it would be best to focus on comfort care and palliative care. I explained in detail to the patient and his . Palliative care consult has been requested by Dr. Dominguez and a family meeting has been scheduled for 10/19/2018 at 1:00 p.m. 2. [id number]-[id number] hypoxic respiratory failure due to chronic obstructive pulmonary disease and suspected pneumonia. 3. Anemia. He has been getting Aranesp every 2 weeks. DOMINGO STARR MD DR: TOMAS/sergio JOB#: [id number] / [id number]
[2018-10-19 03:56] LABS: BILIRUBIN,URINE NEGATIVE (NEG); CLARITY,URINE CLEAR; COLOR,URINE YELLOW; NITRITE,URINE NEGATIVE (NEG); PROTEIN,URINE 30 mg/dL (NEG-TRACE); UROBILINOGEN,URINE 0.2 mg/dL (0.2 mg/dL)
[2018-10-19 04:04] LABS: AMORPHOUS SEDIMENT,UR PRESENT /HPF; BACTERIA,URINE 0 /HPF (0-FEW); GRANULAR CASTS,URINE OCCASIONAL /HPF; RBC,URINE OCC /HPF (0-2); SQUAMOUS EPITHELIAL CELL,UR FEW /LPF; WBC,URINE OCC /HPF (0-4)
[2018-10-19] MEDS: PIPERACILLIN/TAZOBACTAM 3.375 GM in IV NORMAL SALINE 50ML 50 ML IV SCH ×3 (05:52→17:36)
[2018-10-19 07:00] VITALS: BP 140/82
[2018-10-19] MEDS: IPRATRPIUM/ALBUTEROL 0.5/2.5MG 3 ML NEBU. NEB SCH (07:46)
--- NOTE | 2018-10-19 08:00 | NUR ---
RN NOTE DURING BEDSIDE REPORT WITH LORI ALFORD THIS MORNING, PATIENT PRESENTED WITH SOA AND RETRACTED BREATHING. PATIENT WAS ON A NC AT 3L WITH OXYGEN SATURATION AT 75%. RAPID WAS CALLED ON PATIENT [id number] AND WAS PLACED ON A SIMPLE MASK AT 5L. OXYGEN SATURATION THEN EVER TO 99%. PATIENT WAS ALSO GIVEN ATIVAN. PATIENT STABLE AND RESTING.
[2018-10-19] MEDS: CYANOCOBALAMIN (VITAMIN B-12) 1,000 MCG TABLET. PO SCH (08:30)
[2018-10-19] MEDS: ATORVASTATIN CALCIUM 10 MG TABLET. PO SCH (08:30)
[2018-10-19] MEDS: POTASSIUM CHLORIDE 20 MEQ TABLET.ER. PO SCH (08:30)
[2018-10-19] MEDS: MULTIVITAMIN with MINERAL TABLET. PO SCH (08:30)
--- NOTE | 2018-10-19 08:48 | NUR ---
SW following for discharge planning. Pt is from home with . Palliative care is consulted. SW will continue to follow.
[2018-10-19] MEDS ORDERED: POLYETHYLENE GLYCOL 3350 17 GM PACKET. PO PRN (09:00)
[2018-10-19] MEDS ORDERED: fentaNYL 100MCG/HR PATCH 1 PATCH PATCH TD SCH (09:00)
--- NOTE | 2018-10-19 09:07 | PDOC ---
PROGRESS NOTES Subjective Subjective HPI - f/u of Recurrent small cell lung cancer with mediastinal lymphadenopathy, on palliative chemotherapy with topotecan ROS - has dyspnea Objective Objective Vital Signs Date Time Temp Pulse Resp B/P (MAP) Pulse Ox O2 Delivery O2 Flow Rate FiO2 10/19/18 07:46 100 Simple Mask 5.0 10/19/18 07:00 98.1 105 26 140/82 (101) 98.1 Intake and Output 10/19/18 07:00 Intake Total 960 ml Output Total 600 ml Balance 360 ml Intake Oral 710 ml IV Total 250 ml Output Urine Total 600 ml Physical Exam General: mild distress Neck: No JVD Assessment Assessment IMPRESSION AND PLAN: 1. Recurrent small cell lung cancer with mediastinal lymphadenopathy, on palliative chemotherapy with topotecan. He received cycle #28, day 2 on 10/05/2018 and then he did not return for further chemotherapy because of frequent hospitalizations due to respiratory failure from chronic obstructive pulmonary disease and pneumonia. Appreciate consultation by Dr. Benito Dominguez. His functional status has declined due to worsening chronic obstructive pulmonary disease and it is unlikely that he will recover to be well enough for further chemotherapy. I also agree with Dr. Dominguez that it would be best to focus on comfort care and palliative care. I explained in detail to the patient and his . Palliative care consult has been requested by Dr. Dominguez and a family meeting has been scheduled for 10/19/2018 at 1:00 p.m. I d/w Dr Horne. 2. Itvfq-lc-zoqsbxp hypoxic respiratory failure due to chronic obstructive pulmonary disease and suspected pneumonia. 3. Anemia. He has been getting Aranesp every 2 weeks. Hb 8.5. Comment Review of Relevant I have reviewed the following items madhav (where applicable) has been applied. Labs Laboratory Tests Test 10/17/18 18:45 10/17/18 20:08 10/19/18 03:50 White Blood Count 6.6 x10^3/uL (4.0-11.0) Red Blood Count 2.90 x10^6/uL (4.30-5.70) Hemoglobin 8.5 g/dL (13.0-17.5) Hematocrit 27.5 % (39.0-53.0) Mean Corpuscular Volume 95 fL (79-100) Mean Corpuscular Hemoglobin 30 pg (25-35) Mean Corpuscular Hemoglobin Concent 31 g/dL (31-37) Red Cell Distribution Width 20.5 % (11.5-14.5) Platelet Count 129 x10^3/uL (140-400) Neutrophils (%) (Auto) 80 % (31-73) Lymphocytes (%) (Auto) 7 % (24-48) Monocytes (%) (Auto) 11 % (0-9) Eosinophils (%) (Auto) 1 % (0-3) Basophils (%) (Auto) 1 % (0-3) Neutrophils # (Auto) 5.2 x10^3uL (1.8-7.7) Lymphocytes # (Auto) 0.5 x10^3/uL (1.0-4.8) Monocytes # (Auto) 0.7 x10^3/uL (0.0-1.1) Eosinophils # (Auto) 0.1 x10^3/uL (0.0-0.7) Basophils # (Auto) 0.1 x10^3/uL (0.0-0.2) Platelet Estimate Adequate (ADEQUATE) Poikilocytosis Slight Anisocytosis Mod Schistocytes Occ Sodium Level 137 mmol/L (136-145) Potassium Level 4.6 mmol/L (3.5-5.1) Chloride Level 95 mmol/L (98-107) Carbon Dioxide Level 38 mmol/L (21-32) Anion Gap 4 (6-14) Blood Urea Nitrogen 15 mg/dL (8-26) Creatinine 0.8 mg/dL (0.7-1.3) Estimated GFR (Cockcroft-Gault) 99.6 BUN/Creatinine Ratio 19 (6-20) Glucose Level 121 mg/dL (70-99) Lactic Acid Level 1.2 mmol/L (0.4-2.0) Calcium Level 8.9 mg/dL (8.5-10.1) Magnesium Level 1.8 mg/dL (1.8-2.4) Total Bilirubin 0.5 mg/dL (0.2-1.0) Aspartate Amino Transf (AST/SGOT) 18 U/L (15-37) Alanine Aminotransferase (ALT/SGPT) 25 U/L (16-63) Alkaline Phosphatase 57 U/L (46-116) Troponin I Quantitative < 0.017 ng/mL (0.000-0.055) TA-Qgi-Y-Type Natriuretic Peptide 176 pg/mL (0-124) Total Protein 6.5 g/dL (6.4-8.2) Albumin 3.0 g/dL (3.4-5.0) Albumin/Globulin Ratio 0.9 (1.0-1.7) Influenza Type A Antigen Negative (NEGATIVE) Influenza Type B Antigen Negative (NEGATIVE) Urine Collection Type Unknown Urine Color Yellow Urine Clarity Clear Urine pH 6.0 Urine Specific [place] 1.020 Urine Protein 30 mg/dL (NEG-TRACE) Urine Glucose (UA) 250 mg/dL (NEG) Urine Ketones (Stick) Negative mg/dL (NEG) Urine Blood Negative (NEG) Urine Nitrite Negative (NEG) Urine Bilirubin Negative (NEG) Urine Urobilinogen Dipstick 0.2 mg/dL (0.2 mg/dL) Urine Leukocyte Esterase Negative (NEG) Urine RBC Occ /HPF (0-2) Urine WBC Occ /HPF (0-4) Urine Squamous Epithelial Cells Few /LPF Urine Amorphous Sediment Present /HPF Urine Bacteria 0 /HPF (0-FEW) Urine Granular Casts Occasional /HPF Laboratory Tests Test 10/19/18 03:50 Urine Collection Type Unknown Urine Color Yellow Urine Clarity Clear Urine pH 6.0 Urine Specific [place] 1.020 Urine Protein 30 mg/dL (NEG-TRACE) Urine Glucose (UA) 250 mg/dL (NEG) Urine Ketones (Stick) Negative mg/dL (NEG) Urine Blood Negative (NEG) Urine Nitrite Negative (NEG) Urine Bilirubin Negative (NEG) Urine Urobilinogen Dipstick 0.2 mg/dL (0.2 mg/dL) Urine Leukocyte Esterase Negative (NEG) Urine RBC Occ /HPF (0-2) Urine WBC Occ /HPF (0-4) Urine Squamous Epithelial Cells Few /LPF Urine Amorphous Sediment Present /HPF Urine Bacteria 0 /HPF (0-FEW) Urine Granular Casts Occasional /HPF Microbiology 10/17/18 Blood Culture - Preliminary, Resulted NO GROWTH AFTER 1 DAY Medications Current Medications Albuterol/ Ipratropium (Duoneb) 3 ml 1X ONCE NEB Last administered on at 19:46; Start 10/17/18 at 19:15; Stop 10/17/18 at 19:16; Status DC Methylprednisolone Sodium Succinate (SOLU-Medrol 125MG VIAL) 125 mg 1X ONCE IV Last administered on 10/17/18at 19:46; Start 10/17/18 at 19:30; Stop 10/17/18 at 19:31; Status DC Lorazepam (Ativan) 1 mg 1X ONCE IV Last administered on 10/17/18at 19:44; Start 10/17/18 at 19:30; Stop 10/17/18 at 19:31; Status DC Vancomycin HCl (Vanco Per Pharmacy) 1 each PRN DAILY PRN MC SEE COMMENTS Last administered on 10/18/18at 13:14; Start 10/17/18 at 20:15 Piperacillin Sod/ Tazobactam Sod (Zosyn Per Pharmacy) 1 each PRN DAILY PRN MC SEE COMMENTS; Start 10/17/18 at 20:15 Piperacillin Sod/ Tazobactam Sod 3.375 gm/Sodium Chloride 50 ml @ 100 mls/hr 1X ONCE IV Last administered on 10/17/18at 20:34; Start 10/17/18 at 20:15; Stop 10/17/18 at 20:44; Status DC Vancomycin HCl 1.5 gm/Sodium Chloride 500 ml @ 250 mls/hr 1X ONCE IV Last administered on 10/17/18at 21:00; Start 10/17/18 at 21:00; Stop 10/17/18 at 22:59 ; Status DC Albuterol/ Ipratropium (Duoneb) 3 ml RTQID NEB Last administered on 10/19/18at 07:46; Start 10/18/18 at 08:00; Stop 10/19/18 at 07:59; Status DC Lorazepam (Ativan) 1 mg PRN Q4HRS PRN IV ANXIETY Last administered on at 07:46; Start 10/17/18 at 20:45 Piperacillin Sod/ Tazobactam Sod 3.375 gm/Sodium Chloride 50 ml @ 100 mls/hr Q6HRS IV Last administered on 10/19/18at 05:52; Start 10/18/18 at 01:00 Vancomycin HCl 1 gm/Sodium Chloride 250 ml @ 250 mls/hr Q12HR IV Last administered on 10/18/18at 21:28; Start 10/18/18 at 09:00 Vancomycin HCl (Vancomycin Trough Level) 1 each 1X ONCE MC ; Start 10/19/18 at 08:30; Stop 10/19/18 at 08:31; Status DC Albuterol Sulfate (Ventolin Neb Soln) 2.5 mg PRN BID PRN NEB SHORTNESS OF BREATH; Start 10/18/18 at 07:45; Stop 10/18/18 at 13:08; Status DC Atorvastatin Calcium (Lipitor) 10 mg DAILY PO Last administered on 10/19/18 08 :30; Start 10/18/18 at 10:00 Cyanocobalamin (Vitamin B-12) 1,000 mcg DAILY PO Last administered on 08:30; Start 10/18/18 at 10:00 Oxycodone HCl (Roxicodone) 30 mg Q4HRS PO Last administered on 10/19/18 05:52 ; Start 10/18/18 at 12:00 Oxycodone HCl (Roxicodone) 20 mg PRN Q3HRS PRN PO BREAKTHRU PAIN Last administered on 10/18/18 14:49; Start 10/18/18 at 09:00 Potassium Chloride (Klor-Con) 20 meq DAILY PO Last administered on 10/19/18 08 :30; Start 10/18/18 at 10:00 Tamsulosin HCl (Flomax) 0.4 mg HS PO Last administered on 10/18/18 21:26; Start 10/18/18 at 21:00 Albuterol Sulfate (Ventolin Neb Soln) 1.25 mg PRN Q6HRS PRN NEB SHORTNESS OF BREATH; Start 10/18/18 at 09:15 Fentanyl (Duragesic 100mcg/Hr Patch) 2 patch Q3DAYS TD ; Start 10/19/18 at 09:00 Multivitamins (Thera M Plus) 1 tab DAILY PO Last administered on 10/19/18 08: 30; Start 10/18/18 at 10:00 Polyethylene Glycol (miraLAX PACKET) 17 gm PRN DAILY PRN PO CONSTIPATION; Start 10/19/18 at 09:00 Prochlorperazine Maleate (Compazine) 10 mg PRN Q6HRS PRN PO NAUSEA/VOMITING; Start 10/18/18 at 09:15 Trazodone HCl (Desyrel) 150 mg QHS PO Last administered on 10/18/18 21:26; Start 10/18/18 at 21:00 Active Scripts Active Reported Augmentin 875-125 Tablet (Amoxicillin/Potassium Clav) 1 Each Tablet 1 Tab PO BID Oxycodone Hcl Immed.release (Oxycodone Hcl) 30 Mg Tablet 20 Mg PO Q3HRS PRN Oxycodone Hcl Immed.release (Oxycodone Hcl) 30 Mg Tablet 1 Tab PO Q4HRS Vitamin B-12 (Cyanocobalamin (Vitamin B-12)) 1,000 Mcg Tablet 1,000 Mcg PO DAILY Multivitamins (Multivitamin) 1 Each Tablet 1 Each PO DAILY Compazine (Prochlorperazine Maleate) 10 Mg Tablet 10 Mg PO Q 6 HRS PRN Zofran (Ondansetron Hcl) 8 Mg Tablet PO Q 8HRS PRN Albuterol Sulfate Neb Soln (Albuterol Sulfate) 1.25 Mg/3 Ml Vial.neb 1.25 Mg NEB PRN QID PRN Miralax (Polyethylene Glycol 3350) 17 Gm Powd.pack 1 Pkt PO PRN DAILY PRN Testosterone Cypionate 200 Mg/1 Ml Vial 1 Ml IM QMONTH Trazodone Hcl 150 Mg Tablet 150 Mg PO HS FENTANYL 100mcg/hr (Fentanyl) 1 Each Patch.td72 2 Patch TP Q3DAYS Potassium Chloride 20 Meq Tab.er.prt 20 Meq PO DAILY Atorvastatin Calcium 10 Mg Tablet 1 Tab PO DAILY Tamsulosin Hcl 0.4 Mg Cap.er.24h 1 Cap PO HS Proair Hfa Inhaler (Albuterol Sulfate) 8.5 Gm Hfa.aer.ad 2 Puff IH PRN Q2HR PRN Vitals/I & O Vital Sign - Last 24 Hours 10/18/18 10/18/18 10/18/18 10/18/18 09:17 10:51 12:04 14:49 Temp 98.0 98.0 Pulse 104 Resp 18 B/P (MAP) 119/72 (88) Pulse Ox 99 97 99 99 O2 Delivery Nasal Cannula Nasal Cannula Nasal Cannula Nasal Cannula O2 Flow Rate 4.0 3.0 3.0 3.0 10/18/18 10/18/18 10/18/18 10/18/18 15:00 16:01 17:21 17:54 Temp 97.8 97.8 Pulse 80 Resp 18 B/P (MAP) 123/84 (97) Pulse Ox 94 98 98 98 O2 Delivery Nasal Cannula Nasal Cannula Nasal Cannula Nasal Cannula O2 Flow Rate 3.0 3.0 3.0 3.0 10/18/18 10/18/18 10/18/18 10/18/18 19:00 19:17 20:00 21:26 Temp 98.3 98.3 Pulse 99 Resp 18 B/P (MAP) 101/69 (80) Pulse Ox 100 100 100 O2 Delivery Nasal Cannula Nasal Cannula Nasal Cannula Nasal Cannula O2 Flow Rate 3.0 3.0 4.0 3.0 10/18/18 10/19/18 10/19/18 10/19/18 23:00 01:04 03:00 05:52 Temp 98.0 98.1 98.0 98.1 Pulse 101 97 Resp 18 B/P (MAP) 117/77 (90) 122/71 (88) Pulse Ox 98 98 100 100 O2 Delivery Nasal Cannula Nasal Cannula Nasal Cannula Nasal Cannula O2 Flow Rate 3.0 3.0 3.0 3.0 10/19/18 10/19/18 10/19/18 10/19/18 06:52 07:00 07:01 07:46 Temp 98.1 98.1 Pulse 105 Resp B/P (MAP) 140/82 (101) Pulse Ox 100 75 100 100 O2 Delivery Nasal Cannula Nasal Cannula Simple Mask Simple Mask O2 Flow Rate 5.0 3.0 5.0 5.0 Intake and Output 10/18/18 10/18/18 10/19/18 15:00 23:00 07:00 Intake Total 150 ml 340 ml 470 ml Output Total 200 ml 400 ml Balance 150 ml 140 ml 70 ml DOMINGO STARR MD Oct 19, 2018 09:07
--- NOTE | 2018-10-19 09:10 | PDOC ---
PROGRESS NOTES Subjective He slept most of the night but got agitated and hypoxic earlier this am, not wanting to keep O2 mask on but when he does his sats are normal. His came up and he seemed to get more agitated but has just received some ativan. When he does anything in the least bit exertional he gets dyspneic and anxious. Palliative care meeting at 1 pm Objective Afebrile General: drowsy likely from hypoxic encephalopathy Heart: tachy Lungs: diminished breath sounds Abd: soft Ext: edema of left hand Vital Signs Vital Signs Date Time Temp Pulse Resp B/P (MAP) Pulse Ox O2 Delivery O2 Flow Rate FiO2 10/19/18 07:46 100 Simple Mask 5.0 10/19/18 07:00 98.1 105 26 140/82 (101) 98.1 I & O Intake and Output 10/19/18 07:00 Intake Total 960 ml Output Total 600 ml Balance 360 ml Intake Oral 710 ml IV Total 250 ml Output Urine Total 600 ml Assessment and Plan acute on chronic respiratory failure emphysema lung cancer hypoxic encephalopathy Palliative care - hospice Caitlyn ELLIOTT MD Oct 19, 2018 09:10
[2018-10-19 09:48] LABS: VANC TR 18.7 mcg/mL (10.0-20.0)
[2018-10-19] MEDS: VANCOMYCIN PER PHARMACY MC PRN (10:16)
--- NOTE | 2018-10-19 10:16 | NUR ---
Pharmacy Vancomycin Dosing Note S: Consulted to monitor and dose vancomycin started 10/17/18. O: SHADE DYER is a 58 year old M with HCAP. Other Antibiotics: ZOSYN 3.375 GM Q6H LABS: Last BUN: 15 Last Creatinine: 1.0 Creatinine Clearance: 69 mL/min Last WBC: 6.6 Last Platelets: Tmax (past 24 hours): 98.3 Microbiology: BLOOD CX (10/17): NGTD I/O: 960/600 Drug Levels: Last Trough level: 18.7 on 10/19/18 at 0840 Last dose given 10/19/18 at 2128 Vancomycin Dosing: Dosing Weight: Actual Target Trough: 15-20 A: Patient is receiving vancomycin 1000 mg IV q12hrs for HCAP. A trough of 18.7 mcg/ml is within goal range. Patient's SCr trending up today; eCrCl 69 ml/min. Pharmacy will monitor renal function closely. P: 1. Continue Vancomycin 1000 mg IV q12h 2. Follow up level PRN 3. Pharmacy will continue to monitor, follow and adjust therapy as needed. DEON ROSENBERG [facility], 10/19/18 1016
[2018-10-19] MEDS: VANCOMYCIN 1 GM in IV NORMAL SALINE 250ML 250 ML IV SCH ×2 (10:26→22:28)
[2018-10-19 11:00] VITALS: BP 129/66
--- NOTE | 2018-10-19 11:16 | PDOC ---
PULMONARY PROGRESS NOTES Subjective sleepy , received ativan on VM Vitals Vital Signs Date Time Temp Pulse Resp B/P (MAP) Pulse Ox O2 Delivery O2 Flow Rate FiO2 10/19/18 07:46 100 Simple Mask 5.0 10/19/18 07:00 98.1 105 26 140/82 (101) 98.1 General: Lethargic Lungs: Other (rhonchi) Cardiovascular: S1, S2 Abdomen: Soft Extremities: No Edema Skin: Warm Labs Laboratory Tests Test 10/17/18 18:45 10/17/18 20:08 10/19/18 03:50 10/19/18 08:40 White Blood Count 6.6 x10^3/uL (4.0-11.0) Red Blood Count 2.90 x10^6/uL (4.30-5.70) Hemoglobin 8.5 g/dL (13.0-17.5) Hematocrit 27.5 % (39.0-53.0) Mean Corpuscular Volume 95 fL (79-100) Mean Corpuscular Hemoglobin 30 pg (25-35) Mean Corpuscular Hemoglobin Concent 31 g/dL (31-37) Red Cell Distribution Width 20.5 % (11.5-14.5) Platelet Count 129 x10^3/uL (140-400) Neutrophils (%) (Auto) 80 % (31-73) Lymphocytes (%) (Auto) 7 % (24-48) Monocytes (%) (Auto) 11 % (0-9) Eosinophils (%) (Auto) 1 % (0-3) Basophils (%) (Auto) 1 % (0-3) Neutrophils # (Auto) 5.2 x10^3uL (1.8-7.7) Lymphocytes # (Auto) 0.5 x10^3/uL (1.0-4.8) Monocytes # (Auto) 0.7 x10^3/uL (0.0-1.1) Eosinophils # (Auto) 0.1 x10^3/uL (0.0-0.7) Basophils # (Auto) 0.1 x10^3/uL (0.0-0.2) Platelet Estimate Adequate (ADEQUATE) Poikilocytosis Slight Anisocytosis Mod Schistocytes Occ Sodium Level 137 mmol/L (136-145) Potassium Level 4.6 mmol/L (3.5-5.1) Chloride Level 95 mmol/L (98-107) Carbon Dioxide Level 38 mmol/L (21-32) Anion Gap 4 (6-14) Blood Urea Nitrogen 15 mg/dL (8-26) Creatinine 0.8 mg/dL (0.7-1.3) 1.0 mg/dL (0.7-1.3) Estimated GFR (Cockcroft-Gault) 99.6 77.0 BUN/Creatinine Ratio 19 (6-20) Glucose Level 121 mg/dL (70-99) Lactic Acid Level 1.2 mmol/L (0.4-2.0) Calcium Level 8.9 mg/dL (8.5-10.1) Magnesium Level 1.8 mg/dL (1.8-2.4) Total Bilirubin 0.5 mg/dL (0.2-1.0) Aspartate Amino Transf (AST/SGOT) 18 U/L (15-37) Alanine Aminotransferase (ALT/SGPT) 25 U/L (16-63) Alkaline Phosphatase 57 U/L (46-116) Troponin I Quantitative < 0.017 ng/mL (0.000-0.055) IG-Gof-T-Type Natriuretic Peptide 176 pg/mL (0-124) Total Protein 6.5 g/dL (6.4-8.2) Albumin 3.0 g/dL (3.4-5.0) Albumin/Globulin Ratio 0.9 (1.0-1.7) Influenza Type A Antigen Negative (NEGATIVE) Influenza Type B Antigen Negative (NEGATIVE) Urine Collection Type Unknown Urine Color Yellow Urine Clarity Clear Urine pH 6.0 Urine Specific [place] 1.020 Urine Protein 30 mg/dL (NEG-TRACE) Urine Glucose (UA) 250 mg/dL (NEG) Urine Ketones (Stick) Negative mg/dL (NEG) Urine Blood Negative (NEG) Urine Nitrite Negative (NEG) Urine Bilirubin Negative (NEG) Urine Urobilinogen Dipstick 0.2 mg/dL (0.2 mg/dL) Urine Leukocyte Esterase Negative (NEG) Urine RBC Occ /HPF (0-2) Urine WBC Occ /HPF (0-4) Urine Squamous Epithelial Cells Few /LPF Urine Amorphous Sediment Present /HPF Urine Bacteria 0 /HPF (0-FEW) Urine Granular Casts Occasional /HPF Vancomycin Level Trough 18.7 mcg/mL (10.0-20.0) Vancomycin Last Dose Date 10/18/18 Vancomycin Last Dose Time 2100 Laboratory Tests Test 10/19/18 03:50 10/19/18 08:40 Urine Collection Type Unknown Urine Color Yellow Urine Clarity Clear Urine pH 6.0 Urine Specific [place] 1.020 Urine Protein 30 mg/dL (NEG-TRACE) Urine Glucose (UA) 250 mg/dL (NEG) Urine Ketones (Stick) Negative mg/dL (NEG) Urine Blood Negative (NEG) Urine Nitrite Negative (NEG) Urine Bilirubin Negative (NEG) Urine Urobilinogen Dipstick 0.2 mg/dL (0.2 mg/dL) Urine Leukocyte Esterase Negative (NEG) Urine RBC Occ /HPF (0-2) Urine WBC Occ /HPF (0-4) Urine Squamous Epithelial Cells Few /LPF Urine Amorphous Sediment Present /HPF Urine Bacteria 0 /HPF (0-FEW) Urine Granular Casts Occasional /HPF Creatinine 1.0 mg/dL (0.7-1.3) Estimated GFR (Cockcroft-Gault) 77.0 Vancomycin Level Trough 18.7 mcg/mL (10.0-20.0) Vancomycin Last Dose Date 10/18/18 Vancomycin Last Dose Time 2100 Medications Active Scripts Medications Dose Route/Sig Max Daily Dose Days Date Category Augmentin 875-125 Tablet (Amoxicillin/Potassium Clav) 1 Each Tablet 1 Tab PO BID 08/27/18 Reported Oxycodone Hcl Immed.release (Oxycodone Hcl) 30 Mg Tablet 20 Mg PO Q3HRS PRN 02/09/18 Reported Oxycodone Hcl Immed.release (Oxycodone Hcl) 30 Mg Tablet 1 Tab PO Q4HRS 02/09/18 Reported Vitamin B-12 (Cyanocobalamin (Vitamin B-12)) 1,000 Mcg Tablet 1,000 Mcg PO DAILY 06/20/16 Reported Multivitamins (Multivitamin) 1 Each Tablet 1 Each PO DAILY 04/02/16 Reported Compazine (Prochlorperazine Maleate) 10 Mg Tablet 10 Mg PO Q 6 HRS PRN 10/23/14 Reported Zofran (Ondansetron Hcl) 8 Mg Tablet PO Q 8HRS PRN 10/23/14 Reported Albuterol Sulfate Neb Soln (Albuterol Sulfate) 1.25 Mg/3 Ml Vial.neb 1.25 Mg NEB PRN QID PRN 09/12/14 Reported Miralax (Polyethylene Glycol 3350) 17 Gm Powd.pack 1 Pkt PO PRN DAILY PRN 09/12/14 Reported Testosterone Cypionate 200 Mg/1 Ml Vial 1 Ml IM QMONTH 09/04/14 Reported Trazodone Hcl 150 Mg Tablet 150 Mg PO HS 09/04/14 Reported FENTANYL 100mcg/hr (Fentanyl) 1 Each Patch.td72 2 Patch TP Q3DAYS 09/01/14 Reported Potassium Chloride 20 Meq Tab.er.prt 20 Meq PO DAILY 09/01/14 Reported Atorvastatin Calcium 10 Mg Tablet 1 Tab PO DAILY 09/01/14 Reported Tamsulosin Hcl 0.4 Mg Cap.er.24h 1 Cap PO HS 09/01/14 Reported Proair Hfa Inhaler (Albuterol Sulfate) 8.5 Gm Hfa.aer.ad 2 Puff IH PRN Q2HR PRN 09/01/14 Reported Impression . 1. Acute on chronic hypoxic respiratory failure secondary to multifactorial etiologies including combination of chronic obstructive pulmonary disease, suspected postobstructive pneumonia and severe debility. 2. 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 Currently, has been on topotecan. Last CT chest on previous admissions shows no evidence of pulmonary embolism, but evidence of residual tumor. Cannot exclude the possibility of ongoing endobronchial lesion, which was proven on prior bronchoscopy. 3. Underlying suspected severe chronic obstructive pulmonary disease with acute on chronic hypoxic respiratory failure. 4. Severe debility. Plan . 1. Discussed with RN. Continue with present oxygen. 2. Continue with broad spectrum antibiotic. 3. Bronchodilators. 4. The patient's prognosis is grim. He has declining quality of life. palliative care meeting today to address goals of care. 5. Discussed with RN. d/w . DNR/ DNI 6. Rec hospice PARIS CAIN MD Oct 19, 2018 11:16
[2018-10-19] MEDS: ALBUTEROL SULFATE 2.5 MG/3 ML NEBU. NEB PRN ×2 (12:01→16:37)
--- NOTE | 2018-10-19 12:57 | PDOC2 ---
PALLIATIVE CARE Palliative Care Note Palliative Care Patient lethargic. Just receicved Ativan for restlessness/SOB Oxygen 5L mask. Sats on the 90"s. Received permission from to talk with Sanaz about discharge plan and goals of care. "She knows what I want" Reviewed Medical Condition; . 1. Acute on chronic hypoxic respiratory failure secondary to multifactorial etiologies including combination of chronic obstructive pulmonary disease, suspected postobstructive pneumonia and severe debility. 2. 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 Currently, has been on topotecan. Last CT chest on previous admissions shows no evidence of pulmonary embolism, but evidence of residual tumor. Cannot exclude the possibility of ongoing endobronchial lesion, which was proven on prior bronchoscopy. 3. Underlying suspected severe chronic obstructive pulmonary disease with acute on chronic hypoxic respiratory failure. 4. Severe debility. has worked for [facility] before. She understands his medical condition. She requests to take patient home with [facility].. She has no preference of agencies Patient worded as Speech Clinician. Tavia is very important to him. Sanaz has lost 2 sons in the past. Discussed Code Status;; She understands that CPR likely would not benefit patient. She requests DNR/DNI. Outside the Hospital DNR/DNI signed. DME Hospital Bed. Oxygen. They have a concentrator at home Bedside table. Understands they have [facility]. If his care could not be handled at home [facility] would be an option.. Plan DNR/DNI Home with Hospice. No preference of Agency. DME: Hospital Bed, oxygen, bedside table. Spoke with Kp MORGAN who will assist with discharge plan. JASVIR VÁZQUEZ Oct 19, 2018 12:57
--- NOTE | 2018-10-19 13:50 | NUR ---
CATHY following pt. Spoke with Pat regarding palliative care discussion. Pt and have decided with home with hospice and have no preference for agency. Spoke with Pt's and she is agreeable with [facility]. CATHY phoned and faxed referral to [facility]. Spoke with Wai regarding pt's family request regarding DME. Pt's reported she has to get her house clean and move things to make room for hospital bed. Pt admission and acceptance to hospice pending. Will continue to follow.
[2018-10-19 15:00] VITALS: BP 131/64
--- NOTE | 2018-10-19 17:16 | NUR ---
RN NOTE PATIENT BECAME TACHYCARDIC ON THE MONITOR AT 1630. RUNNING AROUND 130-140. CHECKED PATIENTS VITALS 131/69 HR 69 O2 100% SIMPLE MASK ON 5L. CONTACTED DR HENNESSY. ADVISED DR HENNESSY PATIENTS CODE STATUS HAD CHANGED TO DNR/DNI. VERBAL ORDER RECEIVED TO DISCONTINUE TELE MONITORING AND TO KEEP PATIENT COMFORTABLE.
[2018-10-19 19:00] VITALS: BP 127/82
[2018-10-19] MEDS ORDERED: IPRATRPIUM/ALBUTEROL 0.5/2.5MG 3 ML NEBU. NEB SCH (20:00)
[2018-10-19] MEDS: traZODone 50 MG TABLET. PO SCH (21:00)
[2018-10-19] MEDS: TAMSULOSIN 0.4 MG CAP.ER.24H. PO SCH (21:00)
[2018-10-19 23:00] VITALS: BP 126/73
[2018-10-20] MEDS: PIPERACILLIN/TAZOBACTAM 3.375 GM in IV NORMAL SALINE 50ML 50 ML IV SCH (00:05)
--- NOTE | 2018-10-20 02:51 | NUR ---
At 0205, Jose the patient's LAN SPECIALIST came to get this nurse because patient's 02 sat was 75% on 6L simple facemask and is unresponsive to verbal stimuli. When this nurse entered the patient's room at 020, the patient was not breathing but still had a pulse. Rebecca, the patient's was notified of the patient's condition change at 2009. At 2010, this nurse was unable to feel a pulse. Two nurses verified the absence of a pulse and spontaneous respirations at 2011. Sanaz was notified of the passing of the patient at 2014. Dr. Mcclellan was notified of the of the patient at 2019.
[2018-10-20] MEDS: VANCOMYCIN PER PHARMACY MC PRN (10:46)
--- NOTE | 2018-10-20 10:54 | NUR ---
Discharge Note: SHADE DYER [address] PATIENT PREPPED, PER PROTOCOL SENT TO [facility] AT 1040. PATIENTS BELONGINGS WERE GIVEN TO SPOUSE AND SISTER.
--- NOTE | 2018-11-10 16:19 | PDOC3 ---
Discharge Summary [facility] Date of Admission: Oct 17, 2018 Discharge Date: Oct 20, 2018 Admitting Diagnosis acute respiratory failure Final Diagnosis acute on chronic respiratory failure CONSULTS pulm, palliative care Procedures none Brief Hospital Course Mr. George is a 58 old who presented with acute respiratory failure and remained decompensated due to his underlying emphysema and stage 4 lung cancer, he did not want to be intubated but developed worsening dyspnea and more air hunger and more hypoxemia and slowly became less and less responsive. He and his agreed to hospice care with planned discharge on 10/20/18 but at 209 he was found to be without pulse and respirations and pronounced at 021 Patient History: Patient reports no known family medical history. Disposition CONDITION AT DISCHARGE: / Scheduled Amoxicillin/Potassium Clav (Augmentin 875-125 Tablet), 1 TAB PO BID, (Reported) Atorvastatin Calcium (Atorvastatin Calcium), 1 TAB PO DAILY, (Reported) Cyanocobalamin (Vitamin B-12) (Vitamin B-12), 1,000 MCG PO DAILY, (Reported) Fentanyl (FENTANYL 100mcg/hr), 2 PATCH TP Q3DAYS, (Reported) Multivitamin (Multivitamins), 1 EACH PO DAILY, (Reported) Ondansetron Hcl (Zofran), PO q 8hrs prn, (Reported) Oxycodone Hcl (Oxycodone Hcl Immed.release ), 1 TAB PO Q4HRS, (Reported) Potassium Chloride (Potassium Chloride), 20 MEQ PO DAILY, (Reported) Prochlorperazine Maleate (Compazine), 10 MG PO q 6 hrs prn, (Reported) Tamsulosin Hcl (Tamsulosin Hcl), 1 CAP PO HS, (Reported) Testosterone Cypionate (Testosterone Cypionate), 1 ML IM QMONTH, (Reported) Trazodone Hcl (Trazodone Hcl), 150 MG PO HS, (Reported) Scheduled PRN Albuterol Sulfate (Proair Hfa Inhaler), 2 PUFF IH PRN Q2HR PRN for SHORTNESS OF BREATH, (Reported) Albuterol Sulfate (Albuterol Sulfate Neb Soln), 1.25 MG NEB PRN QID PRN for SHORTNESS OF BREATH, (Reported) Oxycodone Hcl (Oxycodone Hcl Immed.release ), 20 MG PO Q3HRS PRN for PAIN, ( Reported) Polyethylene Glycol 3350 (Miralax), 1 PKT PO PRN DAILY PRN for CONSTIPATION, ( Reported) Caitlyn ELLIOTT MD Nov 10, 2018 16:19
== END 2018-10-20 10:57 | disposition expired | DRG 871 ==
LOC: ER 18:34 → 5 NORTH 20:30
PROVIDERS: ADMIT Family Medicine; ATTEND Family Medicine
DX: A41.9 Sepsis, unspecified organism (principal); J18.9 Pneumonia, unspecified organism; J96.21 Acute and chronic respiratory failure with hypoxia; J44.1 Chronic obstructive pulmonary disease with (acute) exacerbation; E44.0 Moderate protein-calorie malnutrition; C34.90 Malignant neoplasm of unspecified part of unspecified bronchus or lung; G93.1 Anoxic brain damage, not elsewhere classified; Z68.1 Body mass index [BMI] 19.9 or less, adult; D64.81 Anemia due to antineoplastic chemotherapy; T45.1X5A Adverse effect of antineoplastic and immunosuppressive drugs, initial encounter; R53.81 Other malaise; Z85.118 Personal history of other malignant neoplasm of bronchus and lung; E78.5 Hyperlipidemia, unspecified; I10 Essential (primary) hypertension; K21.9 Gastro-esophageal reflux disease without esophagitis; F41.9 Anxiety disorder, unspecified; G89.29 Other chronic pain; M54.9 Dorsalgia, unspecified; Z66 Do not resuscitate; Z82.49 Family history of ischemic heart disease and other diseases of the circulatory system; Z86.73 Personal history of transient ischemic attack (TIA), and cerebral infarction without residual deficits; Z87.891 Personal history of nicotine dependence; Z87.01 Personal history of pneumonia (recurrent); Y92.89 Other specified places as the place of occurrence of the external cause
CPT/HCPCS: 36415; 71045; 80053; 80202; 81001; 82565; 83605; 83735; 83880; 84145; 84484; 85025; 87040; 87804; 93005; 94640; 94760; 96365; 96367; 96375; J2060; J2543; J2930; J3370; J7040; J7050; J7613; J7620; 99285-25; J7030